=== PATIENT | male | born 1945 | race Caucasian/White ===

== ENCOUNTER 2024-04-16 18:28 | Inpatient (IN) | payer MEDICARE, SELFPAY ==
[2024-04-16] VITALS (17 sets, daily range): BP systolic 90–189; BP diastolic 60–112
[2024-04-16 13:47] LABS: % Basophils 0.5 % (0-2); % Eosinophils 1.9 % (0-6); % Immature Granulocytes 0.4 % (0-0.5); % Lymphocytes 10.4 % (20.5-51.1); % Monocytes 6.9 % (1.7-9.3); % Neutrophils 79.9 % (42.2-75.2); Absolute Basophils 0.1 10^3/uL (0-0.2); Absolute Eosinophils 0.2 10^3/uL (0-0.7); Absolute Lymphocytes 1.1 10^3/uL (1.2-3.4); Absolute Monocytes 0.7 10^3/uL (0.1-0.6); Absolute Neutrophils 8.5 10^3/uL (1.4-6.5); Hematocrit 50.4 % (39.0-52.0); Hemoglobin 17.6 g/dL (13.0-18.0); Mean Corp Hgb Conc. 34.9 g/dL (33.0-37.0); Mean Corpuscular Hgb 33.1 pg (27.0-31.0); Mean Corpuscular Volume 94.9 fL (80.0-94.0); Mean Platelet Volume 10.8 fL (7.4-10.4); Nucleated Red Blood Cells % 0 % (-); Platelet Count 192 10^3/uL (130-400); Red Blood Cell Count 5.31 10^6/uL (4.70-6.10); Red Cell Dist. Width 13.2 % (11.5-14.5); White Blood Cell Count 10.7 10^3/uL (4.8-10.8)
[2024-04-16 13:57] LABS: ALT (SGPT) 44 U/L (0-50); AST (SGOT) 39 U/L (17-59); Albumin 4.4 g/dl (3.5-5.0); Alkaline Phosphatase 132 U/L (38-126); Blood Urea Nitrogen 23 mg/dl (9-20); Calcium 10.7 mg/dl (8.4-10.2); Carbon Dioxide 30 mmol/L (22-30); Chloride 103 mmol/L (98-107); Glucose 119 mg/dl (70-99); Potassium 3.9 mmol/L (3.5-5.1); Sodium 140 mmol/L (135-145); Total Bilirubin 0.7 mg/dl (0.2-1.3); Total Protein 7.3 g/dl (6.3-8.2); eGFR 51.13
[2024-04-16 14:10] LABS: Troponin I 0.051 ng/ml
--- NOTE | 2024-04-16 14:20 | ED.GENMED ---
History of Present Illness
General
Chief Complaint: Chest Pain
Source: patient and family (Daughters who have noticed him wheeze.)
Exam Limitations: none
Time Seen by Provider: 04/16/24 14:03
Nursing documentation reviewed up to this point in time: agreed with
History of Present Illness
History of Present Illness:
78-year-old male presents emergency department due to chest pain that radiates from the back and worsens with walking. This began 2 days ago. He has not had pain like this before. He smokes daily.
Past History
Past History
ED Past Medical History: Other (Peptic ulcer disease)
ED Past Surgical History: Bowel resection (Perforated peptic ulcer)
Social History
Tobacco: Smoker
Alcohol: Occasional
Drug: None
Living: with family
Family History
Family History: Negative Diabetes, Hypertension, Early CAD, Asthma or Cancer
Review of Systems
Review of Systems
Allergies reviewed?: Yes
All Other Systems: Not applicable
Constitutional: Reports no symptoms
EENT: Reports no symptoms
Respiratory: Reports no symptoms
Cardiac: Reports chest pain
ABD/GI: Reports no symptoms
: Reports no symptoms
Musculoskeletal: Reports no symptoms
Skin: Reports no symptoms
Neurological: Reports no symptoms
Endocrine: Reports no symptoms
Hematologic/Lymphatic: Reports no symptoms
Psychiatric: Reports no symptoms
Phy Exam
Physical Exam
Physical Exam:
Physical Exam
General: BP 153/92, afebrile
Neck: supple. no meningeal signs. normal posterior pharynx
Heart: s1/s2 regular rate and rhythm, no murmur. equal radial
pulses.
HEENT: Pupils equal round reactive to light, EOMI
Lungs: no acute respiratory distress. Wheezing in upper lungs bilaterally
Abdomen: normal bowel sounds. not tender. no CVAT
Neuro: alert and oriented. no focal neurological deficits cranial nerves II through XII intact
Skin: no rash
Psychiatric: well kept. interactive and cooperative
Extremities: no edema. no calf tenderness. negative homans. good distal pulses
Scores
Heart Score for Chest Pain Patients
STEMI patient?: No
History: Highly Suspicious
ECG: Nonspecific Repolarization
Age: >/= 65 years
Risk Factors: >/= 3 Risk Factors or History of CAD
Troponin: >1 - <3 x Normal Limit
Heart Score for Chest Pain Patients: 8
Heart Score Risk: 72.7 % MACE over next 6 weeks
Course
Orders/Labs/Results
Orders:
Orders
04/16/24 12:29
EKG [Electrocardiogram (*1)] Urgent
Reason for Study: Chest Pain
EKG- Treatment ONCE
04/16/24 13:17
Complete Blood Count/With Diff Urgent
Comprehensive Metabolic Panel Urgent
NT-proBNP Urgent
Comment: ADD ON
Troponin I Urgent
04/16/24 13:39
EKG [Electrocardiogram (*1)] Urgent
Reason for Study: Chest Pain
EKG- Treatment ONCE
04/16/24 14:13
Add On- LAB Urgent
Tests Added?: bnp
04/16/24 14:24
Aspirin Chewable [Low Strength Aspirin] 324 mg PO NOW STA
Nitroglycerin Sublingual [Nitrostat (Sublingual)] 0.4 mg SL [id number] PRN
04/16/24 14:26
CT Chest/abd/pelvis Angio W/wo Urgent
Comment:
Reason For Exam: chest pain radiating to back, elevated bp
04/16/24 15:11
0.9% Sodium Chloride 1000 ml [Nss] 1,000 ml IV BOLUS
04/16/24 16:19
Morphine Sulfate 2 mg .ROUTE .STK-MED ONE
04/16/24 16:20
Electrocardiogram (*1) Urgent
EKG- Treatment ONCE
Nitroglycerin Ointment [Nitro-Bid] 1 inch .ROUTE .STK-MED ONE
04/16/24 16:21
Morphine Sulfate 2 mg IV NOW STA
04/16/24 16:22
Nitroglycerin Ointment [Nitro-Bid] 1 inch TOPICAL NOW STA
04/16/24 17:03
CARDIOLOGY CONSULT Urgent
Consulting Provider: Anthony Blanchard
Was physician already notified: Yes
Reason for consult: nstemi
04/16/24 17:25
Heparin 4,000 units IV NOW STA
04/16/24 17:[address] Non Medication Order As Directed
Physician Order: PTT 6 hours after initial start of Heparin infusion
04/16/24 17:28
PTT Urgent
Comment: Obtain baseline before beginning heparin infusion if not already collected
Troponin I Q6H
04/16/24 17:30
Heparin 81466 Units/250 ml 25,000 units in 250 ml IV PER PROTOCOL
Weight to be used for heparin protocol in kilograms (kg):: 82.2
Protocol:: Cardiac Tx/Acute Coronary
PTT Goal Range to be used:: PTT 73 to 111 seconds
Order type:: Initial
INITIAL Infusion Dose (UNITS/KG/hr) & then follow protocol:: 12 units/kg/hr
Infusion Dose in UNITS/hr & then follow protocol (UNITS/hr):: 1,000
INFUSION RATE in mL/hr & then follow protocol (mL/hr):: 10
PTT less than or equal to 64 seconds:: Increase rate by 200 units/hr (+ 2 mL/hr)
PTT 64.1 to 72.9 seconds:: Increase rate by 100 units/hr (+ 1 mL/hr)
PTT 73 to 111 seconds:: Target Range. No change in rate.
PTT 111.1 to 130.9 seconds:: Decrease rate by 100 units/hr (- 1 mL/hr)
PTT 131 to 199.9 seconds:: HOLD for 1 hr. Then decrease rate by 200 units/hr (- 2 mL/hr)
PTT greater than or equal to 200 seconds:: HOLD for 2 hrs & Notify Provider. Then decrease by 200 units/hr (-
2 mL/hr)
Lab follow-up:: Each change, PTT q6h until 2 consecutive are therapeutic. Then PTT
daily.
04/16/24 17:31
Echo 2D MMode Color/Doppler Routine
Reason for Study: sob, cp
04/16/24 17:44
EKG with chest pain [ECG as needed] As Directed
ECG as needed for:: Chest Pain
04/16/24 17:52
Admit/Transfer Patient As Directed
Co-Sign Provider:
Level of Care: Inpatient admission
Assign to:: IVU
Physician / Group: Mani Fiore
Diagnosis: NSTEMI
Reason for Hospitalization: NSTEMI
Expected length of stay greater than two midnights?: Yes
ELOS- Estimated Length of Stay in days: 3
I certify the patient meets the requirements for IP care: Yes
04/16/24 17:53
PRN Pain Medication Management As Directed
May give lesser potent ordered pain med per pt: Yes
preference::
Protocol:: Medication orders for pain may be administered in a
manner that supports deferring to patient preference
when the pt is:
- Requesting an ordered lesser potent pain medication.
Least to most potent pain medications are defined
as: acetaminophen < NSAID < tramadol < opioids
(morphine, oxycodone, hydromorphone).
- Requesting a lesser dose of the same medication IF
ORDERED.
- Requesting a less intrusive route of administration
if both routes are prescribed by the provider (PO <
IV).
04/16/24 17:54
Code Status As Directed
Resuscitation Status: Full Code
04/16/24 23:00
Troponin I Q6H
04/16/24 23:30
PTT Routine
04/17/24 05:00
Troponin I Q6H
04/17/24 06:00
Electrocardiogram (*1) IN AM
Reason for Study: Chest Pain
Cardiovascular Evaluation IN AM
Hemoglobin A1c [Glycohemoglobin (HgbA1c)] IN AM
04/17/24 08:00
Aspirin Low Dose EC [Aspir Low (Enteric Coated)] 81 mg PO DAILY
Abnormal Lab Results
04/16/24
13:17
MCV 94.9 H fL
(80.0-94.0)
MCH 33.1 H pg
(27.0-31.0)
MPV 10.8 H fL
(7.4-10.4)
Absolute Neuts (auto) 8.5 H 10^3/uL
(1.4-6.5)
Absolute Lymphs (auto) 1.1 L 10^3/uL
(1.2-3.4)
Absolute Monos (auto) 0.7 H 10^3/uL
(0.1-0.6)
Neutrophils % 79.9 H %
(42.2-75.2)
Lymphocytes % 10.4 L %
(20.5-51.1)
BUN 23 H mg/dl
(9-20)
Creatinine 1.4 H mg/dL
(0.7-1.3)
Glucose 119 H mg/dl
(70-99)
Calcium 10.7 H mg/dl
(8.4-10.2)
Alkaline Phosphatase 132 H U/L
(38-126)
Troponin I 0.051 H* ng/ml
04/16/24 13:17
04/16/24 13:17
Vital Signs
Initial and Last Documented VS:
Initial Vital Signs
Temp Pulse Resp BP Pulse Ox
98.2 F 83 18 189/112 97
04/16/24 12:34 04/16/24 12:34 04/16/24 12:34 04/16/24 12:34 04/16/24 12:34
Last Documented Vital Signs
Temp Pulse Resp BP Pulse Ox
98.2 F 89 19 108/71 93
04/16/24 12:34 04/16/24 14:51 04/16/24 14:51 04/16/24 14:51 04/16/24 14:45
MDM/Problems Addressed
Differential Diagnosis Includes:
Aortic dissection PE, ACS
MDM/Problems Addressed:
69-year-old male with NSTEMI. No signs of PE or aortic dissection. Pain-free at this time. Patient seen by Dr. Blanchard, who recommends heparin and admission to hospitalist service. Discussed with Dr. Ernst, who will likely catheterize patient on
Thursday.
*Radiology
Radiology exam reviewed: radiology read reviewed (CT aorta angiography no signs of dissection or PE)
*Pulse Oximetry
Patient hypoxic: no
*EKG
Interpreted by ED Provider?: Yes
EKG Intrepretation Date: 04/16/24
EKG Intrepretation Time: 13:42
Interpretation: abnormal
Comparison EKG: changes noted
Heart Rate: 83
Rate: normal
Rhythm: sinus
[place]: left axis deviation
Interval: normal interval
QRS Pattern: normal QRS
Ischemia: T-wave inversion
*Critical Care Note
Total Time (30-74mins, 75-104mins- exclusive of procedures): 45
comment:
Critical care statement: A total of 45 minutes of critical care time was provided for this patient. This includes management of unstable vital signs, evaluation of the patient at bedside, reviewing the patient's pertinent medical records, discussion
with consultants, review of old EKGs and review of pertinent medical records. This time with separate from time utilized to perform the aforementioned documented procedures
Patient Management
Social determinants of health affecting care: Living situation, Substance abuse (Tobacco) and Poor outpatient follow-up
Discussion with other providers: Hospitalist, Repair Technician (Cardiology) and Radiologist
Escalation/DeEscalation of care consider admission/obs:
Admission indicated
ED Attending Note
-
Portions of this chart may have been created with voice recognition software.� Occasional wrong word or��sound alike� substitutions may have occurred due to the inherent limitations of voice recognition software.
Discharge Plan
Departure
Patient Disposition: Admit
Date of Disposition: 04/16/24
Time of Disposition: 17:17
Admit to: IVU
Presentation/result/management discussed w/ accepting MD/DO: Hospitalist
Patient with high blood pressure during this ER visit?: Yes
Condition: Fair
Discharge Problem:
Non-ST elevation CO (NSTEMI)
Prescriptions:
No Action
Romel Multivitamin For Men 1 EACH tablet
1 ea PO DAILY
ibuprofen [Advil] 200 mg Tablet
400 mg PO Q6H PRN (Reason: pain)
Referrals:
NONE,* [Family Provider] -
Interventions
Interventions:
*Risk Screen - Suicide Last Done: 04/16/24 12:34
*General Assessment Last Done: 04/16/24 12:34
*Neglect/Abuse Screening Last Done: 04/16/24 12:34
ED- Fall Risk Assessment Last Done: 04/16/24 14:09
ED- Cardiac Assessment Last Done: 04/16/24 14:09
Discharge Date and Time
Print Language: MACEDONIAN
[2024-04-16] MEDS: LOW STRENGTH ASPIRIN 324 MG PO (14:32)
[2024-04-16] MEDS: NITROSTAT (SUBLINGUAL) 0.4 MG SL ×2 (14:32→14:45)
[2024-04-16 14:48] LABS: NT-proBNP 687 pg/ml
[2024-04-16] MEDS: NSS 1000 IV (15:27)
[2024-04-16] MEDS: MORPHINE SULFATE 2 MG IV (16:22)
[2024-04-16] MEDS: NITRO-BID 1 INCH TOPICAL (16:23)
--- NOTE | 2024-04-16 16:59 | CON.CAR ---
Consultation
Consultation Request
Date/Time Consultation Requested: 04/16/2024
Date/Time Consultation Performed: 04/16/2024
Requesting Provider: Carmelo
Performing Provider: Santo
Reason for Consultation: CP, NSTEMI
Medical History
-
Chief Complaint: CP
History of Present Illness:
Patient is a 78-year-old male without a significant reported past medical history aside from tobacco use disorder, suspected hypertension, PVCs, COPD who presents due to chest pain. Patient reports the chest pain as an aching/screw like sensation
in the center of his chest with radiation to his back worse with exertion relieved with rest. Patient also notes occasionally the pain radiates from the back to the center of his chest; similarly worse with exertion, relieved with rest. He notes
that this has been progressive over the past few months however today notes the pain occurring at rest. Due to this, he presented to the emergency department for evaluation. Initial EKG shows right bundle branch block, LAFB, anterior T wave
inversions not present on EKG in 2020. Patient chest pain resolved with nitroglycerin. Patient underwent CT chest with contrast due to concern for possible dissection. Patient had recurrence of chest pain, resolved with nitroglycerin and
morphine. Initially, patient had been hypertensive however under evaluation emergency department, systolics between 100-120 mmHg. Initial lab work demonstrates BUN 23, creatinine 1.4 initial BNP 687 and troponin of 0.051. Patient given an aspirin
in emergency department. In evaluation of patient at bedside, patient denies any current chest pain, shortness of breath, palpitations, lightheadedness, dizziness, near-syncope, syncope, or weakness. Patient has nitro patch in place and denies any
complaints at this time.
Past Medical History
Past Medical History: Other (Tobacco use, hypertension, PVC, right bundle branch block)
Social History
Tobacco: Smoker
Alcohol: Occasional
Drug: None
Personal:
Living: With Family
Family History
Family History: Other (VTE)
Allergies / Home Medications
Allergy/AdvReac Type Severity Reaction Status Date / Time
influenza virus vaccine, Allergy Vomiting Verified 04/16/24 12:34
specific 1966
[Influenza Virus
Vacc,Specific]
meperidine HCl [From Demerol] Allergy agitation Verified 04/16/24 12:34
morphine AdvReac hallucinating Verified 04/16/24 12:34
and
agitation
�Medication �Instructions �Recorded �Confirmed �Type
gsmrgluz-zot-cnpji 200 mcg-lycop 1 ea PO DAILY 07/29/12 09/02/12 History
175 mcg-lutei 250 mcg-herb 178
tablet (Romel Multivitamin For Men)
Tylenol : 2 tablets PO PRN PRN discomfort 08/01/12 09/02/12 History
Advil 2 tab PO DAILY 08/31/12 09/02/12 History
Review of Systems
-
History Source: Patient
All other systems: Negative unless noted
Constitutional: No Symptoms
EENT: No Symptoms
Respiratory: Trouble Breathing
Cardiac: Chest Pain and Diaphoresis
Abdomen/GI: No Symptoms
: No Symptoms
Musculoskeletal: No Symptoms
Skin: No Symptoms
Neurological: No Symptoms
Endocrine: No Symptoms
Hematologic/Lymphatic: No Symptoms
Physical Exam
Vital Signs
Temp Pulse Resp BP Pulse Ox
98.2 F 89 19 108/71 93
04/16/24 12:34 04/16/24 14:51 04/16/24 14:51 04/16/24 14:51 04/16/24 14:45
Lab Results
04/16/24 13:17
04/16/24 13:17
Troponin I 0.051 ng/ml H* 04/16/24 13:17
Uux-N-Sgquzosgdzi Pept 687 pg/ml 04/16/24 13:17
Physical Exam:
GENERAL: no acute distress
EYE: sclera anicteric
NECK: Supple, no JVD appreciated, no carotid bruit appreciated
ENT: normal nose, moist mucosal membranes
CARDIAC: Regular rate and rhythm, +S1/S2, no murmur, rubs, or gallops
CHEST/PULMONARY: Normal effort, global decreased breath sounds, faint expiratory wheeze
ABDOMEN: Soft, without focal tenderness or distention
NEUROLOGICAL: Alert and oriented x3
SKIN: Warm and dry, no rash
PSYCH: Normal and appropriate interaction.
Impression / Plan
-
Cardiology: Previously seen by Dr. Mata Santoro, 2020
Primary care: None
.
Assessment:
Chest pain, concerning for ACS/NSTEMI
� Noted symptoms of aching/screwing sensation in center of chest radiation to back
� Initial troponin 0.051
� EKG sinus rhythm right bundle branch block, LAFB, anterolateral T wave inversions; repeat shows improvement/resolution of these T wave inversions
� Given aspirin in emergency department; improved with nitro patch and morphine
� Chest pain-free in the ED with nitro patch and morphine
� No prior cardiac evaluation or testing; recommended echocardiogram, exercise nuclear stress test 2020 but did not complete
Tobacco use disorder, continuous
� Noted longstanding smoking history since age 11 or 12, currently 5 to 6 cigarettes/day
Hypertension
COPD
Right bundle branch block, LAFB
.
CT chest abdomen pelvis angio with and without contrast 04/16/2024: Severe calcific atherosclerotic plaque in the coronary arteries, moderate calcific atherosclerotic plaque and tortuosity of the descending thoracic aorta, mild interstitial pulmonary
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
moderate bilateral medullary nephrocalcinosis with small subcentimeter nonobstructing bilateral intrarenal calculi, cholelithiasis mild GB wall thickening, small hiatal hernia, severe discogenic degenerative disease L5/S1, severe bilateral facet
joint arthrosis at L4-L5 with associated grade 1 anterolisthesis
.
Plan:
Echocardiogram
Heparin drip
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
Continue aspirin 81 mg daily
CVE/lipid panel/A1c in AM; likely initiation of high intensity statin
Trend troponin to peak
Discussed at length with patient regarding importance of smoking cessation, patient family verbalized understanding
Monitor on telemetry
Further recommendations to follow
Discussed with Dr. Rhodes, nursing
Data Reviewed
-
EKG: Tracing Personally Visualized and interpreted
Radiology: Report Reviewed by me
CT Scan: Report Reviewed by me
Labs: Labs Reviewed by me
Old Records: Reviewed
--- NOTE | 2024-04-16 17:29 | HPS.HSE ---
Family Physician
-
Family Physician: * NONE
Chief Complaint
-
Chest pain
History of Present Illness
Patient is a 78-year-old male with past medical history significant for peptic ulcer disease with perforated ulcer who presented to [facility] ED for evaluation of chest pain. Patient reports chest pain started yesterday afternoon and has
been intermittent ever since, it is located in center of chest. He reports radiated to his back at times. Patient denies anything in particular making pain better or worse. He does report if happens with exertion tends to improve at rest. Patient
has noticed the pain yesterday at rest when on phone with his grandson. Patient denies any recent sick contact, fever, chills, dizziness, cough, shortness of breath, nausea, vomiting, constipation, diarrhea or urinary symptoms.
Medical History
Past Medical History
Past Medical History: Reports Other
Additional Past Medical History:
peptic ulcer disease with perforated ulcer
Past Surgical History: Reports Other
Additional Past Surgical History:
perforated ulcer repair
TURP
Social History
Tobacco: Smoker (6 cigarettes a day since age 11, 17 pack year history )
Alcohol: None
Drug: None
Living: Alone
Employment: Retired
Family History
Family History: Not pertinent
Allergies / Home Medications
Allergies reflects when Allergies were last updated in [facility].
Home Medications with original date entered in [facility]
Allergy/Medication List:
Allergies
Allergy/AdvReac Type Severity Reaction Status Date / Time
influenza virus vaccine, Allergy Vomiting Verified 04/16/24 12:34
specific 1966
[Influenza Virus
Vacc,Specific]
meperidine HCl [From Demerol] Allergy agitation Verified 04/16/24 12:34
morphine AdvReac hallucinating Verified 04/16/24 12:34
and
agitation
Home Medications
umkewlzs-zxu-rqpwd 200 mcg-lycop 175 mcg-lutei 250 mcg-herb 178 tablet (Romel Multivitamin For Men) 1 ea PO DAILY 07/29/12
ibuprofen 200 mg tablet (Advil) 400 mg PO Q6H PRN pain 04/16/24
Review of Systems
-
History Source: Patient and Family
Constitutional: Reports No Symptoms
EENT: Reports No Symptoms
Respiratory: Reports No Symptoms
Cardiac: Reports Chest Pain
Abdomen/GI: Reports No Symptoms
: Reports No Symptoms
Musculoskeletal: Reports No Symptoms
Skin: Reports No Symptoms
Neurological: Reports No Symptoms
Endocrine: Reports No Symptoms
Hematologic/Lymphatic: Reports No Symptoms
Psych: Reports No Symptoms
Physical Exam
Vital Signs
Vital Signs
Temp Pulse Resp BP Pulse Ox
98.2 F 89 19 108/71 93
04/16/24 12:34 04/16/24 14:51 04/16/24 14:51 04/16/24 14:51 04/16/24 14:45
Physical Exam
General: Well Developed, Well Nourished, No Apparent Distress, Comfortable and Conversant
HEENT: NormoCephalic, Moist mucous membranes, Atraumatic, [place] Conjunctivae, Nose Appears Normal and Ears Appear Normal
Respiratory: Clear, Non Labored Respirations and Decreased Breath Sounds
Cardiac: S1/S2 and Regular Rhythm; No Murmur, Rub or Gallop
Breast: Deferred by me
GI: Soft, Non Tender, Non Distended and Normal Bowel Sounds; No Organomegaly
Rectal: Deferred by Provider
Genito-urinary: Deferred by me
Musculoskeletal: No Clubbing, No Cyanosis and No Edema
Skin: Warm and IV/Catheter Site; No Rash
Neuro: Awake, Alert, AO x 3 and Nonfocal/grossly intact
Psych: Calm and Intact Judgment/Insight
Laboratory Results
-
04/16/24 13:17
04/16/24 13:17
Laboratory Results
Total Bilirubin 0.7 mg/dl (0.2-1.3) 04/16/24 13:17
AST 39 U/L (17-59) 04/16/24 13:17
ALT 44 U/L (0-50) 04/16/24 13:17
Alkaline Phosphatase 132 U/L (38-126) H 04/16/24 13:17
Troponin I 0.051 ng/ml H* 04/16/24 13:17
Data Reviewed
-
CT Scan: Report Reviewed by me (Chest/Abd/Pelvis CTA)
Medical Tests (Nuc Med, Echo, EKG etc): Report Reviewed by me (EKG: NORMAL SINUS RHYTHM LEFT AXIS DEVIATION RIGHT BUNDLE BRANCH BLOCK ABNORMAL ECG)
Lab Data: Labs Reviewed by me (Trop 0.051, BUN 23, Creat 1.4, )
Impression/Plan
-
IMPRESSION/PLAN:
#Chest pain/NSTEMI
Chest CTA: 1. Severe calcific atherosclerotic plaque in the coronary arteries.
2. Moderate calcific atherosclerotic plaque and tortuosity in the descending thoracic aorta.
3. 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
Abd/Pelvis CTA: 1. Mild fusiform infrarenal abdominal aortic aneurysm (2.7 cm diameter).
2. 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
3. SEVERELY ENLARGED PROSTATE GLAND protruding into the urinary bladder lumen. Diagnostic possibilities are (1) severe benign prostatic hyperplasia or (2) prostate cancer.
4. Moderate bilateral medullary nephrocalcinosis and many small subcentimeter nonobstructing bilateral intrarenal calculi.
5. Cholelithiasis and mild gallbladder wall thickening.
6. Small hiatal hernia.
7. Severe discogenic degenerative disease at L5/S1.
8. Severe bilateral facet joint arthrosis at L4/L5 with associated grade 1 anterolisthesis.
EKG: NORMAL SINUS RHYTHM
LEFT AXIS DEVIATION
RIGHT BUNDLE BRANCH BLOCK
ABNORMAL ECG
- admit to IVU
- heparin gtt
- trend troponin
- consider transition to nitro gtt if symptoms persist
- Consult Cardiology
#nicotine dependency
17 pack year history, smokes 0.25 pack per day currently
- denies need for nicotine replacement
- encourage cessation
#peptic ulcer disease
s/p repair
Code status: full code
DVT prophylaxis: heparin gtt
[2024-04-16] MEDS: HEPARIN 4000 UNITS IV (17:36)
[2024-04-16] MEDS: HEPARIN 25000 UNITS/250 ML IV (17:37)
[2024-04-16 17:54] LABS: APTT 31.8 Sec (23.4-35.0)
--- NOTE | 2024-04-16 18:16 | W.PN.UPDATE ---
Update Note
Progress Note Update
This is an addendum to the H&P written by Angie Barron on 04/16/2024. Patient seen and examined independently with AUDIT ASSOCIATE.
78-year-old male past medical history of peptic ulcer disease with perforation status post surgery, BPH status post TURP, COPD, smoker, presenting with chest pain with radiation to the back occurring with exertion relieved with rest but now
occurring at rest progressed over the past few months. Pain resolved with nitroglycerin.
Troponin 0.051. Creatinine of 1.4.
EKG shows right bundle branch block which is old, T wave inversions which are new.
CTA chest abdomen and pelvis shows infrarenal abdominal aortic aneurysm 2.7 cm. No evidence of aortic dissection. There is mild interstitial pulmonary fibrosis in the dependent portion of the lower lobes.
Patient with NSTEMI and mild [place].
Aspirin given. Heparin drip started. IV fluids were given. Check A1c and lipid panel. Trend troponins. Check echocardiogram. Cardiology planning on catheterization for Thursday. Outpatient follow-up for interstitial fibrosis and infrarenal
abdominal aortic aneurysm. Hold ibuprofen.
--- NOTE | 2024-04-16 19:26 | EDRN ---
Report received, introduced myself to patient, patient ambulated to the restroom and back in bed resting with family at bedside will take patienet upstairs shortly.
--- NOTE | 2024-04-16 20:25 | PTCARENOTE ---
Vital signs captured from previous shift.
[2024-04-16 23:37] LABS: APTT 119.3 Sec (23.4-35.0)
[2024-04-16 23:58] LABS: Troponin I 0.265 ng/ml
--- NOTE | 2024-04-17 02:55 | PTCARENOTE ---
Pt received as admit from ED. Pt ambulated from stretcher to bed with no complaints of CP. Pt placed on tele reading NSR/SB with BBB, HR 50s-60s. Heparin gtt currently infusing at 1000units/hr. Pt oriented to room and admission assessment
completed as documented. Plan of care discussed with pt and family and all questions regarding care answered. Can make needs known. Call melo within reach.
[2024-04-17 05:02] VITALS: BP 99/63
[2024-04-17 05:03] VITALS: BMI 28.9
[2024-04-17 05:50] LABS: APTT 82.4 Sec (23.4-35.0)
[2024-04-17 05:56] LABS: Hematocrit 45.4 % (39.0-52.0); Hemoglobin 15.5 g/dL (13.0-18.0); Mean Corp Hgb Conc. 34.1 g/dL (33.0-37.0); Mean Corpuscular Hgb 33.3 pg (27.0-31.0); Mean Corpuscular Volume 97.6 fL (80.0-94.0); Mean Platelet Volume 11.6 fL (7.4-10.4); Platelet Count 186 10^3/uL (130-400); Red Blood Cell Count 4.65 10^6/uL (4.70-6.10); Red Cell Dist. Width 13.4 % (11.5-14.5); White Blood Cell Count 10.5 10^3/uL (4.8-10.8)
[2024-04-17 06:02] LABS: Troponin I 0.194 ng/ml
[2024-04-17 06:24] LABS: Blood Urea Nitrogen 22 mg/dl (9-20); Calcium 9.1 mg/dl (8.4-10.2); Carbon Dioxide 24 mmol/L (22-30); Chloride 106 mmol/L (98-107); Estimated Creatinine Clearance 39 ml/min; Glucose 91 mg/dl (70-99); HDL Cholesterol 36 mg/dl; LDL Cholesterol, Calculated 87 mg/dl; Sodium 138 mmol/L (135-145); Total Cholesterol 139 mg/dl (50-199); Triglyceride 82 mg/dl (10-149); Very Low Density Lipoprotein 16 mg/dl (0-30); eGFR 55.88
[2024-04-17 07:34] VITALS: BP 100/69
[2024-04-17] MEDS: THERAGRAN 1 TABLET PO (07:36)
[2024-04-17] MEDS: ASPIR LOW (ENTERIC COATED) 81 MG PO (07:36)
[2024-04-17 09:09] LABS: Glycohemoglobin (HgbA1c) 5.5 % (4.0-5.6)
--- NOTE | 2024-04-17 10:03 | PTCARENOTE ---
Pt received from mine shifter RN. Pt is Ox3 and appropriate, dtr at bedside with many questions, answered to her satisfaction. Currently on heparin gtt at 900. Pt states that he is completely chest pain free. NSr with 1� AVB, BBB, long QT rate of 60.
Currently on RA, sat of 96%, sl ex wheezing in the L lung. Good Appetite, instructed on NPO after MN for cardiac cath tomorrow. Walking to the bathroom without difficulty. Call melo within reach, pt makes needs known.
--- NOTE | 2024-04-17 10:14 | W.PN.CARDCBS ---
Today's Communication / Plan
-
IV heparin, p.o. aspirin
Nitroglycerin as needed if recurrent chest pain; goal chest pain-free
High intensity statin
N.p.o. after midnight for possible left heart catheterization tomorrow
Impression / Plan
-
Cardiology: Previously seen by Dr. Mata Santoro, 2020
Primary care: None
.
Assessment:
Chest pain, concerning for ACS/NSTEMI
� Noted symptoms of aching/screwing sensation in center of chest radiation to back
� Initial troponin 0.051, peak at 0.265, downtrending
� EKG sinus rhythm right bundle branch block, LAFB, anterolateral T wave inversions; repeat shows improvement/resolution of these T wave inversions
� Given aspirin in emergency department; improved with nitro patch and morphine
� Chest pain-free in the ED with nitro patch and morphine
� No prior cardiac evaluation or testing; recommended echocardiogram, exercise nuclear stress test 2020 but did not complete
Tobacco use disorder, continuous
� Noted longstanding smoking history since age 11 or 12, currently 5 to 6 cigarettes/day
Hypertension
COPD
Right bundle branch block, LAFB
Dyslipidemia
Common iliac artery aneurysm, mild
Abdominal aortic aneurysm, mild, 2.7 cm
Nephrocalcinosis
Cholelithiasis
Degenerative disc disease
.
CT chest abdomen pelvis angio with and without contrast 04/16/2024: Severe calcific atherosclerotic plaque in the coronary arteries, moderate calcific atherosclerotic plaque and tortuosity of the descending thoracic aorta, mild interstitial pulmonary
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
moderate bilateral medullary nephrocalcinosis with small subcentimeter nonobstructing bilateral intrarenal calculi, cholelithiasis mild GB wall thickening, small hiatal hernia, severe discogenic degenerative disease L5/S1, severe bilateral facet
joint arthrosis at L4-L5 with associated grade 1 anterolisthesis
.
Plan:
Echocardiogram, pending
Heparin drip, n.p.o. after midnight for left heart catheterization 04/18/2024
Continue Nitropaste/patch if recurrent symptoms, transition to nitro drip; if patient does not remain pain-free, may require urgent evaluation and cardiac Cmm Operator
Continue aspirin 81 mg daily
Start high intensity statin
Discussed at length with patient regarding importance of smoking cessation, patient family verbalized understanding
Monitor on telemetry
Further recommendations to follow
Discussed with family, nursing
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
Subjective
Date of Service: April 17, 2024
Patient seen and examined's morning. No acute events overnight. Patient resting comfortably in bed. Patient denies any chest pain, shortness of breath, palpitations, weakness. Telemetry demonstrates sinus rhythm. Remains on heparin drip.
Objective
Labs:
04/17/24 05:21
04/17/24 05:22
Labs
Hgb 15.5 g/dL (13.0-18.0) 04/17/24 05:21
Hct 45.4 % (39.0-52.0) 04/17/24 05:21
Plt Count 186 10^3/uL (130-400) 04/17/24 05:21
APTT 82.4 Sec (23.4-35.0) H 04/17/24 05:22
Sodium 138 mmol/L (135-145) 04/17/24 05:22
Potassium 4.0 mmol/L (3.5-5.1) 04/17/24 05:22
BUN 22 mg/dl (9-20) H 04/17/24 05:22
Creatinine 1.3 mg/dL (0.7-1.3) 04/17/24 05:22
Glucose 91 mg/dl (70-99) 04/17/24 05:22
Troponins
04/16/24 04/16/24 04/16/24
13:17 17:28 23:10
Troponin I 0.051 H* 0.160 H* D 0.265 H* D
04/17/24
05:21
Troponin I 0.194 H* D
Vital Signs and I&O:
Vital Signs
Temp Pulse Resp BP Pulse Ox
98.3 F 63 20 110/62 96
04/17/24 07:34 04/16/24 23:11 04/17/24 07:34 04/16/24 23:11 04/17/24 07:34
Vital Signs
Temp Pulse Resp BP Pulse Ox
98.3 F 63 20 110/62 96
04/17/24 07:34 04/16/24 23:11 04/17/24 07:34 04/16/24 23:11 04/17/24 07:34
Physical Exam
Physical Exam
GENERAL: no acute distress
EYE: sclera anicteric
NECK: Supple, no JVD appreciated, no carotid bruit appreciated
ENT: normal nose, moist mucosal membranes
CARDIAC: Regular rate and rhythm, +S1/S2, no murmur, rubs, or gallops
CHEST/PULMONARY: Normal effort, global decreased breath sounds, faint expiratory wheeze
ABDOMEN: Soft, without focal tenderness or distention
NEUROLOGICAL: Alert and oriented x3
SKIN: Warm and dry, no rash
PSYCH: Normal and appropriate interaction.
[2024-04-17 11:57] VITALS: BP 116/67
[2024-04-17 12:36] LABS: APTT 67.7 Sec (23.4-35.0)
--- NOTE | 2024-04-17 13:02 | W.PN.HOSP.TC ---
Today's Communication/Plan
-
Check bladder scan
N.p.o. after midnight
Assessment / Plan
Assessment / Plan
Gen-AAOx3, NAD
HEENT-NC, AT, anicteric, clear oral mm
Neck-supple
CV-reg, no M, +S1/S2
Lungs-clear B/L
Abd-soft, NT, ND
Ext-no edema
Musculoskeletal-no cyanosis, clubbing
Skin-warm and dry
Neuro-grossly non-focal
Psych-calm, cooperative
ACS/NSTEMI -cardiology following. Continue IV heparin. Await cardiac catheterization on Thursday. Chest pain-free currently. No prior cardiac workup.
Troponin trended down.
Tobacco dependence
Essential hypertension -stable. Not on meds.
COPD without exacerbation -not on treatment at home.
Hyperlipidemia
Abdominal aortic aneurysm -measuring 2.7 cm in diameter, infrarenal on CT. Outpatient follow-up.
BPH -prostate is minimally enlarged on CT. He had a TURP procedure in the past. Check bladder scan. Denies nocturia.
Asymptomatic cholelithiasis -noted on CT.
Full code
Anticipated Discharge: > 48 hours
Subjective/Interval History
-
Date of Service: April 17, 2024
Patient seen and examined. No complaints currently, denies chest pain.
Objective Data
-
Labs:
Laboratory Results
04/17/24 04/17/24 04/17/24
05:21 05:22 12:03
WBC 10.5
Hgb 15.5
Hct 45.4
Plt Count 186
APTT 82.4 H 67.7 H
Sodium 138
Potassium 4.0
Chloride 106
Carbon Dioxide 24
BUN 22 H
Creatinine 1.3
Glucose 91
Calcium 9.1 D
04/17/24
18:45
WBC
Hgb
Hct
Plt Count
APTT Pending
Sodium
Potassium
Chloride
Carbon Dioxide
BUN
Creatinine
Glucose
Calcium
Vital Signs:
Vital Signs
Temp Pulse Resp BP Pulse Ox
98.3 F 63 20 110/62 96
04/17/24 11:56 04/16/24 23:11 04/17/24 11:56 04/16/24 23:11 04/17/24 12:10
Review of Systems
-
History Source: Patient
All other systems: Reviewed and negative
[2024-04-17 16:05] VITALS: BP 128/77
[2024-04-17] MEDS: LIPITOR 80 MG PO (18:21)
[2024-04-17] MEDS: HEPARIN 25000 UNITS/250 ML IV (18:35)
[2024-04-17 18:59] LABS: APTT 70.3 Sec (23.4-35.0)
[2024-04-17 19:08] VITALS: BP 132/81
[2024-04-17 22:10] VITALS: BP 119/77
[2024-04-18] VITALS (14 sets, daily range): BP systolic 97–150; BP diastolic 65–85
[2024-04-18 02:19] LABS: APTT 112.8 Sec (23.4-35.0)
[2024-04-18 04:07] LABS: Blood Urea Nitrogen 24 mg/dl (9-20); Calcium 9.5 mg/dl (8.4-10.2); Carbon Dioxide 25 mmol/L (22-30); Chloride 102 mmol/L (98-107); Estimated Creatinine Clearance 42 ml/min; Glucose 86 mg/dl (70-99); Potassium 3.8 mmol/L (3.5-5.1); Sodium 137 mmol/L (135-145); eGFR > 60.00
--- NOTE | 2024-04-18 04:59 | PTCARENOTE ---
Received pt at shift change. NSR with BBB on tele, HR 50s-60s. No complaints of CP or SOB. Heparin gtt infusing at 1000units/hr. Plan of care discussed and pt verbalizes understanding. NPO since midnight for cardiac cath. Call melo within reach.
[2024-04-18] MEDS: ASPIR LOW (ENTERIC COATED) 81 MG PO (09:01)
[2024-04-18] MEDS: THERAGRAN 1 TABLET PO (09:01)
[2024-04-18 09:33] LABS: APTT 59.7 Sec (23.4-35.0)
[2024-04-18] MEDS: LOW STRENGTH ASPIRIN 243 MG PO (09:41)
[2024-04-18] MEDS: NORMOSOL-R/PLASMALYTE-A 1000 IV (10:14)
--- NOTE | 2024-04-18 10:55 | W.PN.HOSP.TC ---
Today's Communication/Plan
-
Cath
echo
iv hep
start IVF
Assessment / Plan
Assessment / Plan
Gen-AAOx3, NAD
HEENT-NC, AT, anicteric, clear oral mm
Neck-supple
CV-reg, no M, +S1/S2
Lungs-clear B/L
Abd-soft, NT, ND
Ext-no edema
Musculoskeletal-no cyanosis, clubbing
Skin-warm and dry
Neuro-grossly non-focal
Psych-calm, cooperative
ACS/NSTEMI -cardiology following. Continue IV heparin. Await cardiac catheterization. ECHO pending. Chest pain-free currently. No prior cardiac workup.
Troponin trended down.
CKDstage 3a-start IVF as plan for cath.
Tobacco dependence
Essential hypertension -stable. Not on meds.
COPD without exacerbation -not on treatment at home.
Hyperlipidemia
Abdominal aortic aneurysm -measuring 2.7 cm in diameter, infrarenal on CT. Outpatient follow-up.
BPH -prostate is minimally enlarged on CT. He had a TURP procedure in the past. Check bladder scan. Denies nocturia.
Asymptomatic cholelithiasis -noted on CT.
Full code
d/w with daughter and grandkids at bedside in details.
Anticipated Discharge: > 48 hours
Subjective/Interval History
-
Date of Service: April 18, 2024
denies any chest pain
Objective Data
-
Labs:
Laboratory Results
04/18/24 04/18/24 04/18/24
02:00 08:58 15:45
APTT 112.8 H 59.7 H Pending
Sodium 137
Potassium 3.8
Chloride 102
Carbon Dioxide 25
BUN 24 H
Creatinine 1.2
Glucose 86
Calcium 9.5
Vital Signs:
Vital Signs
Temp Pulse Resp BP Pulse Ox
98 F 62 20 108/71 92
04/18/24 08:00 04/18/24 09:00 04/18/24 08:00 04/18/24 08:00 04/18/24 08:00
Physical Exam
-
General: Well Developed and No Apparent Distress
HEENT: Normocephalic, Atraumatic and Moist Mucous Membranes
Respiratory: Clear to Auscultation
Cardiac: Regular Rhythm and S1/S2; Negative Murmur, Rub or Gallop
GI: Soft, Nontender, Nondistended and Normal Bowel Sounds; Negative Organomegaly
Rectal: Deferred by Provider
Musculoskeletal: No Clubbing, No Cyanosis and No Edema
Skin: Negative Rash
Neuro: Awake, Alert, Oriented, AO x 3 and Nonfocal/Grossly Intact
Psych: Calm
Data Reviewed
-
Total Time Spent with Patient (in minutes): 55
--- NOTE | 2024-04-18 13:45 | PTCARENOTE ---
Rec'd Pt post card cath, A,A+OX3, denies pain, VSS. R radial dsg D+I , small hematoma noted proximal to R band, manual pressure held by woodworking shop laborer RN x 5-10 minutes, site then soft, R band intact.
--- NOTE | 2024-04-18 14:13 | PTCARENOTE ---
Addendum entered by Chrisetn Dey RN 04/18/24 14:55:
Small hematoma noted proximal to R band, manual pressure (5-10 minutes) held by lab scientist RN, hematoma pressed out, site now soft. 15 min later see below
[ End ]
Original Note:
hematoma felt prox to band now at outer wrist area 1x4 cm, manual pressure held for 10 min, site now soft. Yessi Gonzales aware and saw Pt.
--- NOTE | 2024-04-18 14:30 | CONSULT.CT ---
Consultation
-
Date/Time Consultation Requested: 04/18/24 1400
Date/Time Consultation Performed: 04/18 1431
Requesting Provider: MD Nilda
Performing Provider: Pati Smalls MD
Reason for Consultation: CABG eval
Patient History
Physicians
Family Physician: None
Outpatient Dental Tech: Dr. Mata Santoro
Inpatient Dental Tech: Dr. Munguia
History of Present Illness
78-year-old male with past medical history of hypertension, tobacco use, right bundle branch block, COPD presents on 04/16 with complaints of chest pain. He reported the pain was aching/screw like sensation in the center of his chest radiating to
his back. The chest pain was usually relieved with rest however has been more progressive over the past few months however recently the pain started to occur at rest. Due to this change patient presented to the emergency department for evaluation.
Upon arrival patient's EKG showed new anterior T wave inversions and a left anterior fascicular block. He was given a sublingual nitroglycerin which resolved his chest pain and a CT of the chest with contrast ruled out a dissection. Patient was
found to have elevated troponins and he was given aspirin in the emergency department and started on a heparin infusion, along with a nitro patch.
Today patient was taken to the cardiac Academic Advising Director and patient was noted to have multivessel coronary artery disease on cath. Therefore CT surgery was consulted for surgical evaluation.
TTE on 04/18 showed a normal ejection fraction of 55-60% and mild mitral regurgitation and trivial aortic insufficiency. No other valvular disease was noted.
Past Medical History
Past Medical History: CAD, COPD, HTN and Hypercholesterolemia
Gastric ulcer
Past Surgical History
Past Surgical History: Urological (Turp)
Allergies
Allergy/AdvReac Type Severity Reaction Status Date / Time
influenza virus vaccine, Allergy Vomiting Verified 04/16/24 12:34
specific 1966
[Influenza Virus
Vacc,Specific]
meperidine HCl [From Demerol] Allergy agitation Verified 04/16/24 12:34
morphine AdvReac hallucinating Verified 04/16/24 12:34
and
agitation
Home Medications
�Medication �Instructions �Recorded �Confirmed �Type
ghpevutp-aig-xwabd 200 mcg-lycop 1 ea PO DAILY Supplement 07/29/12 04/16/24 History
175 mcg-lutei 250 mcg-herb 178
tablet (Romel Multivitamin For Men)
ibuprofen 200 mg tablet (Advil) 400 mg PO Q6H PRN pain 04/16/24 04/16/24 History
Physical Exam
Vital Signs
Temp 98.4 F 04/18/24 11:09
Temp route: Oral 04/18/24 11:09
Pulse 64 04/18/24 13:45
Rhythm: Normal sinus rhythm 04/17/24 20:00
With- Bundle Branch Block Confi, Sinus bradycardia 04/17/24 20:00
Resp Rate 18 04/18/24 11:09
Blood pressure 133/75 04/18/24 13:45
Blood pressure extremity used: Right upper arm 04/18/24 11:09
Position: Lying 04/18/24 11:09
MAP (cuff-Ward Monitor) 92 04/18/24 13:45
SaO2 92 04/18/24 13:45
Nasal Cannula flow liters per minute 96 04/17/24 10:02
Oxygen Mode of Delivery Room air 04/18/24 11:09
Can the patient verbally communicate their pain? Yes 04/17/24 20:00
Pain scale ratin 04/16/24 14:54
Actual Weight 76.2 kg 04/17/24 05:03
Body Mass Index (BMI) 28.9 04/17/24 05:03
Labs
04/17/24 05:21
04/18/24 02:00
APTT 59.7 Sec (23.4-35.0) H 04/18/24 08:58
Hemoglobin A1c 5.5 % (4.0-5.6) 04/17/24 05:21
Troponin I 0.194 ng/ml H* D 04/17/24 05:21
Pdl-W-Unxvhfygimc Pept 687 pg/ml 04/16/24 13:17
Assessment / Plan
-
78 y/o male with PMHx listed above presents to with complaints of chest discomfort. He was R/I for NSTEMI and was taken to the cardiac Academic Advising Director today where multivessel disease was found.
#CAD
-Patient's case will be discussed with attending physician. Tentative surgical date will be tomorrow April [address] Hi
-Routine preoperative cardiothoracic surgery orders will be initiated.
-STS risk stratification score will be calculated after preoperative testing is complete
-Continue nitroglycerin and heparin gtt per cardiology
--- NOTE | 2024-04-18 14:41 | ITS.CL.CATH ---
Manager Of Radiology - Catheterization
Cardiac Catheterization
Procedure Report:
LEFT HEART CATHETERIZATION
Date of Procedure: April 18, 2024
Referring: Dr. Anthony Blanchard
PROCEDURES:
1. Left heart catheterization with coronary and single-plane left ventriculography
INDICATION: Non-ST segment elevation NE function
ACCESS: Right radial artery, 6 Malagasy sheath
HEMODYNAMICS : (mmHg)
AO (s/d) : 130/72
LV (s/d) : 130/12
LVEDP : 22
CORONARY FINDINGS
DOMINANCE: Right
LEFT MAIN: Normal
LEFT ANTERIOR DESCENDING: The LAD arises from the left main as a large-caliber vessel with a 50% ostial stenosis. No pressure dampening. There is diffuse atherosclerosis from the proximal to mid LAD with a 95% stenosis just proximal to the origin
of the only sizable diagonal branch and diffuse 70% stenosis extending beyond the diagonal branch into the mid LAD. The mid to distal LAD beyond a large septal show girl has only minor irregularities. The diagonal branch is a small caliber vessel
with moderate diffuse disease in its midportion and bifurcates distally.
CIRCUMFLEX: The circumflex is a medium caliber nondominant vessel. OM1 is a small to medium caliber vessel with a 60% ostial stenosis. OM 2 is small. The circumflex terminates in a moderate size OM 3 which has a 50% mid stenosis
RIGHT CORONARY ARTERY: The right coronary artery is a dominant vessel with diffuse atherosclerotic disease over its course. The proximal RCA has a 60% stenosis and is followed by a 95% stenosis just beyond the RV marginal branch. The distal right
coronary artery is subtotally occluded and fills via well-developed right to right collaterals from a RV marginal branch.
VENTRICULOGRAPHY: Left ventriculography is performed in an BRUSH projection. The digital single-plane left ventricular ejection fraction is estimated at 55-60% and no regional wall motion abnormalities are noted
RADIATION SUMMARY: Fluoro Time (min): 3.0, Dose (mGy): 369, DAP (Gy.cm2) : 25.6
Closure Device: TR band
CONCLUSIONS
1. Multivessel coronary artery disease with 50% ostial and extensive atherosclerotic disease involving the mid LAD and diagonal branch. Chronic subtotal occlusion of the mid RCA with a distal RCA filling via right to right collaterals from an RV
marginal branch. Moderate coronary disease at the origin of small to medium caliber OM1 and in the midportion of OM 3
2. Preserved left ventricular systolic function
RECOMMENDATIONS
1. Consult CT surgery
Copy to: Dr. Anthony Blanchard
--- NOTE | 2024-04-18 15:32 | CM ---
Addendum entered by Rocio Monk RN 04/18/24 16:48:
Patient does not qualify for Medical Assistance for secondary coverage. I gave the patient a handout for [employer] Prescription Plan coverage.
Original Note:
Chart reviewed. Patient is independent of ADLS, lives alone in a apartment 3rd floor, 3 full flight of stairs to enter, 0 DME. Patient is waiting on CT Surgery evaluation. If patient needs surgery he will go to his daughters. Plan is for the
patient to return home vs daughters house. Patient's daughter wanting information on a secondary insurance with medical assistance, patient only has medicare A and B. Phone call placed to admissions for a referral to [facility]. CHARLEE to follow
--- NOTE | 2024-04-18 16:28 | PTCARENOTE ---
R radial dsg D+I, no further issues with hematoma, radial site and forearm remain soft
[2024-04-18] MEDS: LIPITOR 80 MG PO (18:05)
[2024-04-18] MEDS: HEPARIN 25000 UNITS/250 ML IV (18:41)
[2024-04-18 18:47] LABS: B.E. 2.2 mmol/L; HCO3 25.5 mmol/L (21-28); O2 Saturation % 97.4 % (94-98); PCO2 35 mmHg (35-48); PO2 79 mmHg (83-108); pH 7.47 (7.35-7.45)
[2024-04-18] MEDS: LIDOCAINE URO-JET 2% 1 SYRINGE TOPICAL (19:07)
--- NOTE | 2024-04-18 20:05 | W.PN.UPDATE ---
Update Note
Progress Note Update
Procedure Type:�Isolated CABG
Perioperative Outcome Estimate %
Operative Mortality 2.55%
Morbidity & Mortality 9.65%
Stroke 1.06%
Renal Failure 1.62%
Reoperation 2.5%
Prolonged Ventilation 6.05%
Deep Sternal Wound Infection 0.184%
Long Hospital Stay (>14 days) 5.1%
Short Hospital Stay (<6 days)* 40.7%
Clinical Summary
Planned Surgery: Isolated CABG, Urgent, First cardiovascular surgery
Demographics: 78 year old, male, 76.2kg, 163cm, BMI: 28.7 kg/m�
Lab Values: Creatinine: 1.3 mg/dL, Hematocrit: 45.4%, WBC Count: 10.5 10�/�L, Platelet Count: 813065 cells/�L
Substance Abuse: Current smoker, Alcohol use: <=1 drink/week
Risk Factors / Comorbidities: Family Hx of CAD
Pulmonary RF: Mild CLD
Coronary Artery Disease: 3 vessels diseased, Non-ST Elevation [place], [place]: 1 to 7 Days
Valve Disease: Mild MR
--- NOTE | 2024-04-18 22:49 | W.PN.UPDATE ---
Update Note
Progress Note Update
-Called by nurse to assess above pt with hematuria post garcia insertion
-Pt had garcia inserted during 7pm shift change per Nurse
-Nurse reports garcia was draining bright red blood through garcia initially post insertion, but noted to be urinating around garcia subsequently
-Garcia was sterilely irrigated by me with significant clots noted through garcia post irrigation
-Les hematuria now pinkish and appears to be clearing
-Pt had left heart cath in the afternoon of 04/18 and noted to be on heparin gtt, will check PTT level now to see if supratherapeutic
-Pt tells me he had a TURP done in this hospital by Dr. Forbes in 2012
-Hematuria likely secondary to traumatic garcia insertion
-Will cont. to closely monitor, will consult Urology if gross hematuria persists
[2024-04-18] MEDS: KCL 20 MEQ PO (23:29)
[2024-04-18] MEDS: MELATONIN 5 MG PO (23:29)
[2024-04-18 23:40] LABS: INR 1.08; PT 14.3 Sec (11.4-14.6)
[2024-04-18 23:42] LABS: APTT 98.8 Sec (23.4-35.0)
[2024-04-19] VITALS (16 sets, daily range): BP systolic 84–155; BP diastolic 61–123; BMI 28.0
--- NOTE | 2024-04-19 01:26 | PTCARENOTE ---
Assumed care of the pt @ 1900. Pt AAOx3 SR on the monitor VSS Hep gtt infusing. Plan of care explained to patient and family. Call melo within reach
--- NOTE | 2024-04-19 01:30 | PTCARENOTE ---
Chaudhari was placed 1900 bloody urine draining. Korey Krueger GUITAR PLAYER notified.
--- NOTE | 2024-04-19 01:32 | PTCARENOTE ---
Pt with hematuria and leaking around the garcia. John Vo notified @ 2130 and at bedside to flush catheter for clots. Garcia continues to drain blood tinged urine. Stat PTT 98.8. Will monitor closely.
[2024-04-19 05:34] LABS: Hematocrit 46.1 % (39.0-52.0); Hemoglobin 16.3 g/dL (13.0-18.0); Mean Corp Hgb Conc. 35.4 g/dL (33.0-37.0); Mean Corpuscular Hgb 33.5 pg (27.0-31.0); Mean Corpuscular Volume 94.7 fL (80.0-94.0); Mean Platelet Volume 11.4 fL (7.4-10.4); Platelet Count 179 10^3/uL (130-400); Red Blood Cell Count 4.87 10^6/uL (4.70-6.10); White Blood Cell Count 11.4 10^3/uL (4.8-10.8)
[2024-04-19 05:40] LABS: INR 1.14; PT 14.9 Sec (11.4-14.6)
[2024-04-19 05:42] LABS: APTT 105.7 Sec (23.4-35.0)
[2024-04-19 06:21] LABS: Potassium 3.8 mmol/L (3.5-5.1)
[2024-04-19 06:24] LABS: ALT (SGPT) 45 U/L (0-50); AST (SGOT) 60 U/L (17-59); Albumin 4.2 g/dl (3.5-5.0); Alkaline Phosphatase 123 U/L (38-126); Blood Urea Nitrogen 18 mg/dl (9-20); Calcium 9.3 mg/dl (8.4-10.2); Carbon Dioxide 22 mmol/L (22-30); Chloride 107 mmol/L (98-107); Direct Bilirubin 0.3 mg/dl (0.0-0.4); Estimated Creatinine Clearance 46 ml/min; Glucose 115 mg/dl (70-99); Magnesium 2.2 mg/dl (1.6-2.3); Sodium 140 mmol/L (135-145); eGFR > 60.00
--- NOTE | 2024-04-19 06:36 | PTCARENOTE ---
Addendum entered by Pretty Sanchez RN 04/19/24 06:54:
Pt to CVICU ~0430.
Original Note:
Pt transferred to CVICU for surgery w/ Dr. Hi later today. Pt admitted to room 2260 from IVU. Pt AAOx3. Stand by assist to CVICU bed. SR on the tele monitor. HR 60s. BP stable. Afebrile. Pt 95% on RA. Lung sounds clear. Abdomen round. +BS. Chaudhari
catheter in place and draining bloody urine. CTPA aware of hematuria. Right wrist cath site intact and slightly ecchymotic. Pt oriented to room. Pt clipped and given 2nd CHG bath. Gown and linens changed. Weight and VS obtained. Pt confirmed NPO
status. Heparin drip infusing. Labs drawn and sent. Call melo within reach.
[2024-04-19] MEDS: ASPIR LOW (ENTERIC COATED) PO (07:34)
[2024-04-19] MEDS: THERAGRAN PO (07:35)
--- NOTE | 2024-04-19 09:04 | CM ---
Preoperative and postoperative instructions and restrictions discussed with patient, son, granddaughter and grandson. Patient is independent of ADLS, lives alone in a apartment, 3rd floor, 3 full flight of stairs. Patient is going to his daughters
house who has a [address] [facility] [facility] [address]. Stephani [phone]. Patient is agreeable to a visit by CT Transitional RN. Plan is for the patient to go to his daughters house with CT Transitional RN.
[2024-04-19] MEDS: VERSED 2 MG IV (09:57)
[2024-04-19] MEDS: XYLOCAINE 2% MDV 10 ML INFIL (09:57)
[2024-04-19] MEDS: BACTROBAN 2% OINTMENT 1 APPLIC NASAL ×2 (10:28→20:18)
--- NOTE | 2024-04-19 10:28 | W.PN.UPDATE ---
Update Note
Progress Note Update
Radial arterial line placement
A time-out was completed verifying correct patient, procedure, site, patient positioning, and special equipment. Patient was monitored with continuous bedside EKG, blood pressure, pulse ox readings.
Ray's test was performed to ensure adequate perfusion. The patient's left wrist was prepped and draped in sterile fashion.
2% Lidocaine was used to anesthetize the area. Ultrasound was used in real time to localize the radial artery and guide introducer needle into the arterial lumen. The catheter was threaded over the guide wire and the needle was removed with
appropriate pulsatile blood return. The catheter was then secured in place to the skin and a biopatch and sterile dressing applied.
Perfusion to the extremity distal to the point of catheter insertion was checked and found to be unchanged.
Estimated Blood Loss: 0 mL
The patient tolerated the procedure well and there were no complications.
Remains in critical condition.
--- NOTE | 2024-04-19 10:28 | W.PN.UPDATE ---
Update Note
Progress Note Update
A time-out was completed verifying correct patient, procedure, site, patient positioning, and special equipment. Patient was monitored with continuous bedside EKG, blood pressure, pulse ox readings.
The patient was placed in a dependent position appropriate for central line placement based on the vein to be cannulated. The patient's left neck was prepped and draped in sterile fashion using chlorhexidine, maximum barrier precautions, sterile
gloves, Gown drapes and mask.
1% Lidocaine was used to anesthetize the surrounding skin area. Ultrasound was used in real time to localize vein and guide introducer needle. An introducer needle was placed into the left internal jugular vein using ultrasound guidance. A
guidewire was introduced without resistance. Under ultrasound guidance, confirmation of guidewire in vein was performed before dilation. Dilation was done over guidewire without complications. The cordis catheter was then threaded smoothly over the
guide wire and into the central venous system. The guidewire was removed and appropriate blood return was obtained from each lumen. Each lumen of the catheter was evacuated of any remaining air and flushed freely with sterile saline. The catheter
was then secured with a stat lock to the skin and a sterile occlusive dressing with Biopatch applied. An upright chest film was obtained after the procedure to assess for complications of insertion.
Estimated blood loss: 0 mL
Patient tolerated procedure well.
[2024-04-19] MEDS: LOPRESSOR 12.5 MG PO (10:29)
[2024-04-19] MEDS: MAGNESIUM OXIDE 500 MG PO (10:29)
[2024-04-19] MEDS: PROTONIX 40 MG PO (10:29)
--- NOTE | 2024-04-19 11:00 | PTCARENOTE ---
L radial arterial line, RIJ Cordis placed at bedside by JAMES Pati, patient tolerated well. Urology to see patient, catheter placed. Pre-operative medications administered as ordered. Patient transported to CVOR via bed.
--- NOTE | 2024-04-19 11:10 | W.CVOR.SURPR ---
CVOR Surgeon Immed Pre Op
-
I have examined this patient prior to performance of the scheduled procedure.
The patient's condition is unchanged from the time of the dictated/written History and
Physical and the patient is able to undergo the scheduled procedure.
CABG + LAKSHMI clip
[2024-04-19 11:33] LABS: ACT+ - POC 118 Seconds (82-134)
[2024-04-19 12:47] LABS: ACT+ - POC 683 Seconds (82-134)
--- NOTE | 2024-04-19 12:51 | CM ---
Reviewed chart. Mr. Cervantes is in the operating room today. Prior to admission he resides alone in third floor apartment. He has three flight of steps to enter the apartment. Prior to admission he was independent with ambulation and adls. He does
not have any DM in the home. He is planning on going to his daughters home for a few weeks. Medical work-up in progress. The discharge plan is to go to his daughters home with a home visit by the Transitional Care Nurse when medically stable.
[2024-04-19 13:19] LABS: ACT+ - POC 830 Seconds (82-134)
[2024-04-19 13:32] LABS: Glucose - POC 121 mg/dl (70-99); HCO3 - POC 28 mmol/L (21-28); Hematocrit - POC 37 % PCV (42-52); Hemodilution- POC Yes; Hemoglobin Calculated - POC 12.5; Ionized Calcium - POC 0.97 mmol/L (1.15-1.33); Lactate - POC 0.52 mmol/L (0.36-0.75); O2 Saturation %Calculated-POC 99.9 % (94-98); PCO2 - POC 47 mmHg (35-48); PO2 - POC 354 mmHg (83-108); Potassium - POC 4.9 mmol/L (3.5-5.1); Sodium - POC 140 mmol/L (136-145); Specimen Type - POC Arterial; pH - POC 7.38 (7.35-7.45)
[2024-04-19 13:44] LABS: ACT+ - POC 652 Seconds (82-134)
[2024-04-19 14:14] LABS: B.E. - POC 1.8 mmol/L; Glucose - POC 133 mg/dl (70-99); HCO3 - POC 26 mmol/L (21-28); Hematocrit - POC 37 % PCV (42-52); Hemodilution- POC Yes; Hemoglobin Calculated - POC 12.7; Ionized Calcium - POC 0.99 mmol/L (1.15-1.33); Lactate - POC 0.68 mmol/L (0.36-0.75); O2 Saturation %Calculated-POC 99.9 % (94-98); PCO2 - POC 38 mmHg (35-48); PO2 - POC 327 mmHg (83-108); Sodium - POC 141 mmol/L (136-145); Specimen Type - POC Arterial; pH - POC 7.44 (7.35-7.45)
[2024-04-19 14:17] LABS: ACT+ - POC 134 Seconds (82-134)
[2024-04-19 14:18] LABS: B.E. - POC -0.7 mmol/L; Glucose - POC 108 mg/dl (70-99); HCO3 - POC 24 mmol/L (21-28); Hematocrit - POC 44 % PCV (42-52); Hemodilution- POC No; Hemoglobin Calculated - POC 14.9; Ionized Calcium - POC 1.13 mmol/L (1.15-1.33); Lactate - POC < 0.30 mmol/L (0.36-0.75); O2 Saturation %Calculated-POC 99.9 % (94-98); PCO2 - POC 40 mmHg (35-48); PO2 - POC 348 mmHg (83-108); Potassium - POC 3.6 mmol/L (3.5-5.1); Sodium - POC 143 mmol/L (136-145); Specimen Type - POC Arterial; pH - POC 7.39 (7.35-7.45)
[2024-04-19 14:28] LABS: B.E. - POC 0.7 mmol/L; Glucose - POC 133 mg/dl (70-99); HCO3 - POC 26 mmol/L (21-28); Hematocrit - POC 37 % PCV (42-52); Hemodilution- POC Yes; Hemoglobin Calculated - POC 12.6; Ionized Calcium - POC 1.36 mmol/L (1.15-1.33); Lactate - POC 1.15 mmol/L (0.36-0.75); O2 Saturation %Calculated-POC 99.9 % (94-98); PCO2 - POC 41 mmHg (35-48); PO2 - POC 322 mmHg (83-108); Potassium - POC 4.3 mmol/L (3.5-5.1); Sodium - POC 142 mmol/L (136-145); Specimen Type - POC Arterial; pH - POC 7.41 (7.35-7.45)
--- NOTE | 2024-04-19 14:46 | W.PN.CT.SURG ---
CT Surgery Operative Note
-
CARDIAC SURGERY OPERATIVE REPORT
Preoperative Diagnosis: Multivessel Coronary Artery Disease with NSTEMI
Postoperative Diagnosis: Same
Procedure(s) Performed:
1. Standard sternotomy with aortic and right atrial cannulation
2. Coronary artery bypass grafting x 4 (In situ NAIR to LAD, Ao to RSVG to OM1, Ao to RSVG to RPDA seq to OM3)
3. Left atrial appendage exclusion [35 mm clip]
4. Endoscopic vein harvesting of right lower extremity
5. Placement of temporary ventricular pacing wires
6. Transesophageal echocardiography
Date of Surgery: 04/19/2024
Comorbidities:
1. NSTEMI with multivessel coronary artery disease
2. Prior PCI with stenting
3. Hypertension
4. Hyperlipidemia
5. Tobacco abuse
6. Right bundle branch block
7. COPD
8. Left heart catheter this admission
9. BPH status post TURP
10. Hematuria, iatrogenic
Attending Surgeon: Raymond Hi MD, MS
Assistants: Jes Gamboa PA-C (present and necessary to mate first, retraction, suction, exposure, suture management, and wound closure under my direction) and Valerie Verduzco PA-C (endo vein harvest)
Anesthesiology: Erik Rubi MD and Mary Ann Leung CRNA
Scrub and Circulating RNs: Luis Morales RN, Yessi Stephenson RN
Aircraft Machinist Helper: Carlo Castanon CCP
Anesthesia: GETA
EBL: per perfusion records
Products: None
CPB Time: 78 minutes
Aortic Cross Clamp Time: 67 minutes
Indication(s) for Procedures: This is a 78-year-old male with multiple comorbidities who presented to the hospital with chest pain radiating to the back and was found to have an NSTEMI with multivessel coronary artery disease. Given his disease
pattern, he was offered surgical revascularization.
Conduit(s) Quality:
NAIR -excellent/good flow good quality and size
RSVG -average to good/the distal end of the vein did taper quite a bit to a smaller size in the proximal portion of vein was thickened and inflamed. Minor varicosities
Target(s) Quality:
RPDA -excellent/large sized target with good flow on test dosing antegrade, this was sequenced to an OM 3 which was on the lateral inferior wall. Flow probe assessment of the graft demonstrated mean flow of approximately 40 cc a minute at a
pulsatile index of 3.9
OM 3�smaller size target approximately 1.25 to 1.5 mm and thin-walled, there was a flow of approximately 20 to 30 cc a minute at a pressure of 80 mmHg
OM1�fair sized target, had a flow of approximately 2030 cc a minute at a pressure of 85 mmHg, flow probe assessment demonstrated a mean flow of approximately 10 cc a minute at a pulsatility index of 2.1
LAD -excellent/large sized graft that was intramyocardial, able to be traced, good visual flow in the LAD territory, flow probe assessment with a mean flow of approximately 20 cc a minute at a pulsatility index of 2.6
Findings: His left ventricular ejection fraction preoperatively was normal at 60% with no significant regional wall motion abnormalities. Following surgery his EF remained the same at 60%, perhaps mildly hyperdynamic to 65% with no new regional
wall motion abnormalities. The NAIR was harvested in a skeletonized fashion. Following bypass grafting, test dose cardioplegia was given down each distal and confirmed patency and hemostasis. Flow probe was used to assess all graft with occlusion
the case and had adequate flows. He was in sinus rhythm. He did not require any inotropic support. After short period of VVI pacing he returned to his [place] rhythm. No blood products were used. His left atrial appendage was verified to be free
of any thrombus or debris preoperatively and found to be totally occlusive postoperatively with a 35 mm device (AtriCure, serial #[id number]).
Description of Procedure: The patient was taken to the operating room. Their identity and procedure to be performed were verified and they were positioned supine on the operating table. Induction via general anesthesia with endotracheal intubation
was performed and central venous access and arterial monitoring were inserted. A preoperative transesophageal echocardiogram was performed to assess cardiac function and valvular function. The patient was then prepped and draped from chin to feet in
a sterile fashion. A preoperative time-out was performed with all members of the team present. A midline chest incision was performed along with median sternotomy. Simultaneous endoscopic access of the right lower extremity for saphenous vein
harvest was obtained along with administration of an initial 5,000 units of IV heparin. A RulTract sternal retractor was positioned to exposure the left internal mammary bed. The mammary was harvested and found to have good flow. A bulldog clamp was
applied to the distal end of the mammary after dividing it. It was wrapped in a papaverine soaked RayTec and replaced back into the left hemithorax. The RulTract was exchanged for a median sternal retractor. The innominate vein was isolated. Full
heparinization was given (a total of 40,000 units). We created a pericardial well. The aortic cannulation site was chosen where it was soft, pliable, and free of calcium. Cannulation was performed with an arterial cannula in the ascending aorta and
a triple-stage venous cannula through the right atrial appendage. The arterial cannula line had an appropriate bounce and correlating pressures with test dosing. Next, a root vent/antegrade cannula was inserted into the ascending aorta. The ACT was
confirmed to be over 400 and retrograde autologous priming was performed before commencing cardiopulmonary bypass. The pulmonary artery was away from the aorta to facilitate a clamp site. The aortic cross-clamp was placed after decreasing
the flow on the bypass and mean arterial pressure. A total of 1.2L initial dose of antegrade Del-Nido cardioplegia solution was given and planned for re-dosing every 75 minutes as necessary. There was rapid electro-mechanical arrest of the heart at
400 cc of cardioplegia. The left ventricle was observed for distention on echocardiogram and manual palpation. Cold slush was placed into a sponge and topically on the RV while we systemically cooled to 34 degrees centigrade. Once the heart was
fully arrested it was rotated medially and the left atrial appendage was ligated using a 35 mm device.
I positioned the heart to expose the distal right coronary at the posterior descending artery and the OM 3 branch. I like to perform a sequential graft here and so dissected the OM 3 coronary artery and performed a small arteriotomy. The distal
end of the vein graft was beveled accordingly and end-to-side anastomosis was created with 7-0 Prolene in a running fashion. Test dosing antegrade was given on the graft to verify hemostasis and flow. The vein graft was then measured to
accommodate a sequential graft and to reach the aorta. The underbelly of the vein graft was then incised and enlarged with [place] scissors. A conf[place] salish blade was used to expose the RPDA coronary and perform the arteriotomy. Coronary [place] scissors
were used to enlarge the incision. The distal aqmu-uv-donp anastomosis was performed using 7-0 prolene. Antegrade cardioplegia was administered into the graft with the distal end clamped to verify flow and hemostasis. Appropriate hemostasis and
flow were confirmed. The graft was measured for length to the aorta and cut. A suitable site on the first obtuse marginal was chosen. We dissected and prepared the distal target in a similar fashion. An end-to-side anastomosis was created with a
7-0 prolene. Antegrade cardioplegia was administered into the graft. Appropriate hemostasis and flow were confirmed. The graft was measured for length to the aorta and cut. A suitable target on the mid/distal left anterior descending was identified.
We dissected and prepared the distal target in a similar fashion. We retrieved the NAIR from the chest and created a pericardial opening while being cognizant of the phrenic nerve to facilitate the course of the mammary. The distal end of the
mammary was prepped and beveled to size. We verified orientation and length of the JOSH and found brisk flow. An end-to-side anastomosis was created with a 7-0 prolene. We temporarily released the bulldog clamp on the mammary to inspect flow.
Perfusion to the LAD territory was visualized and hemostasis was confirmed. The bull clamp was replaced on the mammary. The heart was filled and the root was distended with antegrade cardioplegia to make final assessment of graft length and
orientation. We created 2 aortotomies using a #11 blade then a 4.0mm aortic punch. The proximal anastomoses were created in an end-to-side fashion using 6-0 prolene and 7-0 Prolene. At the the same time, we re-warmed to 36.5 degrees centigrade. The
bulldog clamp was removed from the mammary. Temporary bipolar ventricular pacing wires were placed on the base of the right ventricle. The patient was placed in a Trendelenburg position and flows on bypass were lowered. The aortic cross clamp was
removed and flows were slowly brought back up. All bypass grafts were inspected and were free from kinking or twisting. 6-0 Prolene was used to tack the vein graft to the RPDA and OM along the anterior surface of the heart. The distal and proximal
anastomoses appeared hemostatic. Once transesophageal echocardiography appeared satisfactory for de-airing, the flows were temporarily lowered for root vent removal. After verifying acceptable parameters, we initiated weaning from cardiopulmonary
bypass. Once we were off cardiopulmonary bypass, the venous cannula was clamped and removed. A test dose of protamine was administered and the patient was monitored for any adverse reaction before resuming protamine. Once half of the protamine dose
was delivered, pump suckers were turned off and the systolic blood pressure was lowered for aortic decannulation. The aortic cannula was removed and pursestrings were tied down. All cannulation sites were oversewn with a 4-0 prolene. The mammary bed
was inspected and hemostasis was confirmed. Once the mediastinum was hemostatic, 19Fr Benedicto drain was placed in the left pleural cavity and two 24Fr Benedicto drains were placed within the pericardium. The sternum was approximated with 4 #7 single and 3
#8 double stainless steel wires. Fascia was approximated with #1 vicryl suture. The subcutaneous, dermis and epidermis were closed in layers in a running fashion. The skin wound was cleansed and dressed.
All instrument, sponge, and needle counts were confirmed to be correct x 2 at the end of the operation. The patient was transferred to the cardiac intensive care unit in critical but stable condition.
I, Dr. Raymond Hi, was present, scrubbed for, and performed all critical elements of this procedure.
Raymond Hi MD, MS
Cardiothoracic Surgeon
[facility]
This operative dictation was created using the [employer] dictation system. Please excuse any grammatical, typographical, or 'sound alike' errors
--- NOTE | 2024-04-19 14:56 | CON.INTV ---
Consultation
Consultation Request
Date/Time Consultation Requested: 04/19/2024 - 143
Date/Time Consultation Performed: 04/19/2024 - 1450
Requesting Provider: LORA Aponte
Performing Provider: Dr. Solano
Reason for Consultation: s/p CABG x4
Medical History
-
Chief Complaint: Chest pain
History of Present Illness:
78-year-old male with a past medical history of PUD who presented with chest pain. Pain was worse with activity and better with rest. Initial echo showed preserved biventricular function with no significant valvular heart disease. Left heart
catheterization on 04/14/2024 showed multivessel CAD with 50% ostial and extensive atherosclerotic disease involving the mid LAD and diagonal branch. Chronic subtotal occlusion of the mid RCA with a distal RCA filling via right to right collaterals
from an RV marginal branch. Moderate coronary disease at the origin of small to medium caliber OM1 and in the midportion of OM3. Spirometry performed today showed a mild obstructive lung defect with FEV1/FVC: 61/80% predicted with FEV1: 2.41
L/102%. Cardiothoracic surgery consulted and patient agreed to surgical revascularization. Today he underwent a CABG x 4 with a left atrial appendage exclusion with a 35mm clip. There were no immediate complications and patient was transferred to
the CVICU in stable condition with resident hall director services consulted for additional management/recommendations.
When I saw the patient he was resting in bed in no acute distress. Intubated on SIMV at 14/500/40%/5, with PIP: 21 cmH2O, VTe 505mL and breathing at 14 breaths/minute. Heart rate 73, BP via left radial A-line: 117/65 and saturating 93%. He has
mediastinal chest tubes x 2 and left pleural chest tube. Currently on insulin drip at 4 units/h.
PMHx: Peptic ulcer disease with history of perforated ulcer, former tobacco smoker
PSHx: Perforated ulcer repair + TURP
Past Medical History
Past Medical History: Other (Above as per HPI)
Past Surgical History: Other (Above as per HPI)
Social History
Tobacco: Former Smoker (35-aqju-gnlm history)
Alcohol: None
Drug: None
Employment: Retired
Allergies / Home Medications
Allergies
Allergy/AdvReac Type Severity Reaction Status Date / Time
influenza virus vaccine, Allergy Vomiting Verified 04/16/24 12:34
specific 1966
[Influenza Virus
Vacc,Specific]
meperidine HCl [From Demerol] Allergy agitation Verified 04/16/24 12:34
morphine Allergy hallucinating Verified 04/18/24 22:06
and
agitation
Home Medications
�Medication �Instructions �Recorded �Confirmed �Last Taken �Type
[id number]-[id number] 200 mcg-lycop 1 ea PO DAILY Supplement 07/29/12 04/16/24 04/16/24 History
175 mcg-lutei 250 mcg-herb 178
tablet (Romel Multivitamin For Men)
ibuprofen 200 mg tablet (Advil) 400 mg PO Q6H PRN pain 04/16/24 04/16/24 Unknown History
Review of Systems
-
Unable to Obtain full review of systems at this time due to: Patient Intubation
Vitals / Labs / Diagnostic Testing
Vital Signs
Temp Pulse Resp BP Pulse Ox
97.4 F 71 14 124/59 96
04/19/24 16:00 04/19/24 16:14 04/19/24 16:00 04/19/24 10:29 04/19/24 16:14
Lab Data
04/19/24 15:12
Laboratory Results
04/18/24 04/18/24 04/18/24
15:45 18:31 22:52
PT Cancelled
INR Cancelled
APTT Cancelled Cancelled
pH 7.47 H
pCO2 35
pO2 79 L
HCO3 25.5
O2 Delivery Level Not Reportable
04/18/24 04/19/24 04/19/24
23:15 00:30 05:13
PT 14.3 14.9 H
INR 1.08 1.14
APTT 98.8 H Cancelled 105.7 H
pH
pCO2
pO2
HCO3
O2 Delivery Level
04/19/24
15:12
PT 17.7 H
INR 1.43
APTT 35.7 H
pH 7.38
pCO2 41
pO2 110 H
HCO3 24.3
O2 Delivery Level
Diagnostic Testing:
Physical Exam
-
HEENT: Normocephalic, Anicteric and Other (ETT in place)
Cardiovascular: S1/S2 and Peripheral Edema (negative)
Respiratory: Wheeze (negative), Rales (negative), Rhonchi (negative), Non-Labored Respirations and Other (Left pleural chest tube + mediastinal chest tubes x 2)
GI: Soft
Neurology: Tremors (negative) and Other (Sedated)
Skin: Warm and Dry
General: Respiratory Distress (negative), Comfortable, Fever (negative), Chills (negative) and Other (Intubated/sedated)
Assessment
-
Assessment: 78-year-old male with a past medical history of PUD who presented with chest pain. Pain was worse with activity and better with rest. Initial echo showed preserved biventricular function with no significant valvular heart disease.
Left heart catheterization on 04/14/2024 showed multivessel CAD with 50% ostial and extensive atherosclerotic disease involving the mid LAD and diagonal branch. Chronic subtotal occlusion of the mid RCA with a distal RCA filling via right to right
collaterals from an RV marginal branch. Moderate coronary disease at the origin of small to medium caliber OM1 and in the midportion of OM3. Spirometry performed 04/19/2024 showed a mild obstructive lung defect with FEV1/FVC: 61/80% predicted with
FEV1: 2.41 L/102%. Cardiothoracic surgery consulted and patient agreed to surgical revascularization. On 04/19/2024, he underwent a CABG x 4 with a left atrial appendage exclusion with a 35mm clip. There were no immediate complications and patient
was transferred to the CVICU in stable condition with resident hall director services consulted for additional management/recommendations.
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
Impression:
#Multivessel CAD s/p CABG x 4 with left atrial appendage exclusion with 35mm clip (POD #0)
#NSTEMI
#Thrombocytopenia likely due to surgical revascularization
#History of hypertension
#History of tobacco use disorder
#Suspected COPD with a mild obstructive lung defect seen on spirometry from 04/19/2024
Plan:
Ventilator settings reviewed
FiO2 will be weaned to maintain SpO2 >90-94%
Minute ventilation will be adjusted
Arterial blood gases will be monitored
Spontaneous breathing trial will be attempted with hopeful extubation after anesthesia/sedation wear off
prn nebulized bronchodilators
Recommend outpatient PFTs given his mild obstructive lung defect to assess for persistent obstruction/COPD - outpatient pulmonary evaluation will be arranged
Pulmonary artery catheter parameters will be followed
Pressors/antihypertensive/inotropes/diuretics will be provided as needed
Maintain MAP>65
Replete electrolytes with K>4, Mg>2
Monitor chest tube output (left pleural chest tube + mediastinal chest tubes x 2)
Monitor hemoglobin
Monitor platelet count and coags
Transfuse blood products as needed to maintain Hb>7g/dL, plt>50k (given post-operative status)
CT surgery managing chest tubes
Monitor blood sugar to maintain euglycemia with goal BG 140-180
Insulin drip per protocol
Aspiration precautions
VAP prevention protocol
DVT prophylaxis
Early nutrition
Early mobilization
Critical care statement: A total of 46 minutes of critical care time was provided for this patient today. This includes management of ventilator, spontaneous breathing trial, arterial blood gases, pressors, of unstable vital signs, evaluation of the
patient at bedside, reviewing the patient's pertinent medical records including radiographs, microbiology, laboratory evaluations, and discussion with primary team and critical care nursing.
--- NOTE | 2024-04-19 15:09 | W.PN.UPDATE ---
Update Note
Progress Note Update
78-year-old male admitted to [facility] [facility] on 04/16 with complaints of chest pain. EKG reported new anterior T wave inversions with left anterior fascicular block and elevated troponin (0.05>0.1). [facility] reported MVCAD. Urology consulted pre-op for
severely enlarged prostate and Chaudhari irrigated pre-op for hematuria
IV fluids: 1300
U.O.:� 800
Blood:� none
Wires:�Bipolar v-wire
Infusions: Levophed @ 4, Precedex @ 0.5, Insulin
�
NEURO: sedated, pupils +2mm B/L
RESP: #8OT @24cm> 500/40%/14/5. Lungs clear B/L. 2 mediastinal (5cc on arrival) and L pleural (0cc on arrival) chest tubes to -20cm suction. Sanguineous drainage. No air leak, no crepitus
CV: RRR +S1, S2, no S3, no�rub, no murmur. Dermabond to median sternotomy. RIJ w/slick intact
ABD: round, soft, no BS. Small umbilical hernia
EXT: no edema, +2/4 DP pulses B/L, no femoral bruit, RLE JOMAR wrap intact; left radial A-line intact
: Chaudhari with clear yellow urine and red flecks
�
A/P: POD #0 s/p CABG x 4 (NAIR to LAD, RSVG to OM1, RSVG to RPDA seq to OM3), left atrial appendage exclusion [#35 mm clip]
ANNIE: EF� 60-65%
- wean and extubate
# CAD
- will require ASA/Plavix, statin, beta-chato
�
# acute surgical blood loss anemia-expected
- trend CBC
�
�# BPH
- initiate Flomax prior to Chaudhari
�
# Tobacco abuse/COPD
- offer Nicotine patch
[2024-04-19 15:14] LABS: Glucose - Point of Care 141 mg/dl (70-99)
--- NOTE | 2024-04-19 15:16 | CONS.URO ---
Consultation
-
Performing Provider: Thor
Reason for Consultation: Hematuria
Medical History
History of Present Illness
78M with hx of BPH and TURP with Dr. Forbes many years ago
Recent workup imaging for CAD incidentally showed very large prostate volume
CT surgery reached out preop to manage garcia catheter
Nursing was able to place a garcia last night without apparent difficulty, but overnight patient had gross hematuria with clots requiring irrigation
This AM urine is light red and draining well via 16fr temp probe catheter
At his baseline, patient does not have any bothersome urinary symptoms since his TURP many years ago
He empties without difficulty and has a good stream standing to void
No nocturia or dribbling, no straining, no prior hematuria episodes
Past Medical History
Past Medical History: Other (CAD, COPD, HTN and Hypercholesterolemia)
Past Surgical History: Other (TURP)
Social History
Tobacco: Non-smoker
Personal:
Living: With Family
Employment: Retired
Family History
Family History: Reviewed & Not Pertinent
Allergies/Home Medications
Allergies
Allergy/AdvReac Type Severity Reaction Status Date / Time
influenza virus vaccine, Allergy Vomiting Verified 04/16/24 12:34
specific 1966
[Influenza Virus
Vacc,Specific]
meperidine HCl [From Demerol] Allergy agitation Verified 04/16/24 12:34
morphine Allergy hallucinating Verified 04/18/24 22:06
and
agitation
Home Medications
�Medication �Instructions �Recorded �Confirmed �Type
ebocikmf-sbb-txyzh 200 mcg-lycop 1 ea PO DAILY Supplement 07/29/12 04/16/24 History
175 mcg-lutei 250 mcg-herb 178
tablet (Romel Multivitamin For Men)
ibuprofen 200 mg tablet (Advil) 400 mg PO Q6H PRN pain 04/16/24 04/16/24 History
Physical Exam
Vital Signs
Vital Signs
Temp Pulse Resp BP Pulse Ox
97.4 F 73 20 124/59 96
04/19/24 15:14 04/19/24 15:08 04/19/24 10:54 04/19/24 10:29 04/19/24 15:08
Physical Exam
General: Well Developed, Well Nourished and No Apparent Distress
Respiratory: Clear and Non Labored Respirations
GI: Soft and Non Tender
Genito-urinary: No Costovertebral Tend, Bloody Urine and Garcia Catheter
Neuro: AO x 3
Psych: Calm and Intact Judgement
Assessment / Plan
-
78M with BPH, remote hx of TURP, with prostatomegaly
Gross hematuria following garcia placement before scheduled CABG
- 16Fr temp probe cath exchanged for 18fr coude without difficulty or resistance. Positioning of catheter suggests initial balloon was inflated within or pulled back into the prostatic urethra
- Minimal hematuria with catheter irrigation, no clots
- Trend hematuria during and post CABG, irrigate PRN clots or obstruction
- Maintain garcia until hematuria resolved
Data Reviewed
-
CT Scan: Image personally visualized and interpreted
Lab Data: Labs Reviewed
[2024-04-19 15:21] LABS: B.E. -0.8 mmol/L; HCO3 24.3 mmol/L (21-28); Ionized Calcium 1.17 mMOL/L (1.15-1.33); PCO2 41 mmHg (35-48); PO2 110 mmHg (83-108); Potassium 4.2 mMOL/L (3.5-5.1); Sodium 138 mMOL/L (136-145); pH 7.38 (7.35-7.45)
[2024-04-19 15:27] LABS: Hematocrit 38.9 % (39.0-52.0); Hemoglobin 13.6 g/dL (13.0-18.0); Platelet Count 136 10^3/uL (130-400)
[2024-04-19] MEDS: LR 250 ML IV ×2 (15:30→17:24)
[2024-04-19 15:31] LABS: INR 1.43; PT 17.7 Sec (11.4-14.6)
[2024-04-19 15:32] LABS: APTT 35.7 Sec (23.4-35.0)
--- NOTE | 2024-04-19 15:36 | W.PN.CARDCBS ---
Addendum entered and electronically signed by Luis Garcia DO 04/19/24 21:25:
I saw and examined the patient.
The Inventory Worker's note was reviewed and I agree with the note.
Comment:
Cont post op care
Wean vent as protocol
Wean IV levo
Remains sinus with stable EKG
Compensated cv status
Discussed with nursing.
Original Note:
Today's Communication / Plan
-
Continue postoperative care
Follow hematuria
Impression / Plan
-
Cardiology: Previously seen by Dr. Mata Santoro, 2020
Primary care: None
.
Assessment:
Chest pain
NSTEMI with peak trop 0.265
MV CAD by cath 04/18/24
Status post CABG x 4 (in situ NAIR to LAD, ao to RSVG to OM1, ao to RSVG to RPDA sequential to OM 3), LAKSHMI clip 04/19/24
Hematuria
Tobacco use disorder, continuous
Hypertension
COPD
Right bundle branch block, LAFB
Dyslipidemia
Common iliac artery aneurysm, mild
Abdominal aortic aneurysm, mild, 2.7 cm
Nephrocalcinosis
Cholelithiasis
Degenerative disc disease
History of BPH status post TURP
CT chest abdomen pelvis angio with and without contrast 04/16/2024: Severe calcific atherosclerotic plaque in the coronary arteries, moderate calcific atherosclerotic plaque and tortuosity of the descending thoracic aorta, mild interstitial pulmonary
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
moderate bilateral medullary nephrocalcinosis with small subcentimeter nonobstructing bilateral intrarenal calculi, cholelithiasis mild GB wall thickening, small hiatal hernia, severe discogenic degenerative disease L5/S1, severe bilateral facet
joint arthrosis at L4-L5 with associated grade 1 anterolisthesis
ECHO 04/18/24: EF 55 to 60%, mild MR, trivial AI
Plan:
-Patient presented with chest pain. Ruled in for NSTEMI with peak troponin of 0.265. Underwent cardiac catheterization 04/14/2024 which showed multivessel CAD and CT surgery consulted. Preop echocardiogram with preserved EF and minimal mitral
valve disease
-Status post CABG x 4 (in situ NAIR to LAD, ao to RSVG to OM1, ao to RSVG to RPDA sequential to OM 3), LAKSHMI clip 04/19/24
-Had some hematuria noted post Chaudhari placement overnight. Urology following. Trend hemoglobin postoperatively, 13.6 initial
-post op EKG SR with RBBB, stable compared to prior
-on levo @ 2 and IVF, wean off as able
-continue post op care
-smoking cessation
-d/w nursing
Progress Note - Topographical Drafter
Subjective
Date of Service: April 19, 2024
Intubated, sedated
Objective
Labs:
Labs
Hgb 13.6 g/dL (13.0-18.0) 04/19/24 15:12
Hct 38.9 % (39.0-52.0) L 04/19/24 15:12
Plt Count 136 10^3/uL (130-400) D 04/19/24 15:12
PT 17.7 Sec (11.4-14.6) H 04/19/24 15:12
INR 1.43 04/19/24 15:12
APTT 35.7 Sec (23.4-35.0) H 04/19/24 15:12
Sodium 140 mmol/L (135-145) 04/19/24 05:13
Potassium 3.8 mmol/L (3.5-5.1) 04/19/24 05:13
BUN 18 mg/dl (9-20) 04/19/24 05:13
Creatinine 1.1 mg/dL (0.7-1.3) 02/25/25 05:13
Glucose 115 mg/dl (70-99) H 04/19/24 05:13
Troponins
04/16/24 04/16/24 04/17/24
17:28 23:10 05:21
Troponin I 0.160 H* D 0.265 H* D 0.194 H* D
Vital Signs and I&O:
Vital Signs
Temp Pulse Resp BP Pulse Ox
97.4 F 73 14 124/59 96
04/19/24 15:15 04/19/24 15:08 04/19/24 15:15 04/19/24 10:29 04/19/24 15:21
Vital Signs
Temp Pulse Resp BP Pulse Ox
97.4 F 73 14 124/59 96
04/19/24 15:15 04/19/24 15:08 04/19/24 15:15 04/19/24 10:29 04/19/24 15:21
Intake & Output
04/17/24 04/18/24 04/19/24 04/20/24
07:59 07:59 07:59 07:59
Intake Total
Output Total 2074 100 / 100
Balance -2062 / -2062 -76 / -76
Physical Exam
Physical Exam
GEN: No distress, intubated, sedated. On [facility] [place]
HEENT: supple, mmm
LUNGS: CTA bilaterally, no wheezes/rales
CV: Reg, S1/S2, no murmur
EXT: No cyanosis, clubbing, edema
NEURO: Sedated
SKIN: Warm, pink, dry. No rash. Sternotomy incision clean dry and intact
[2024-04-19 15:37] LABS: Blood Urea Nitrogen 16 mg/dl (9-20); Estimated Creatinine Clearance 50 ml/min; Glucose 146 mg/dl (70-99); Magnesium 3.2 mg/dl (1.6-2.3)
[2024-04-19] MEDS: NSS 500 IV (15:42)
[2024-04-19] MEDS: PACERONE PO ×2 (15:42→22:08)
[2024-04-19] MEDS: CALCIUM GLUCONATE 100 IV (15:42)
[2024-04-19] MEDS: NEURONTIN PO ×2 (15:42→22:07)
[2024-04-19] MEDS: ANCEF 10 IV ×2 (15:42)
[2024-04-19 15:58] LABS: Glucose - Point of Care 168 mg/dl (70-99)
--- NOTE | 2024-04-19 16:18 | PTCARENOTE ---
Patient received from CVOR s/p CABG x 3/LAAL. RIJ Cordis/L radial arterial lines present - leveled, flushed, and calibrated w/good waveforms returned. Epicardial V-wire tied to pulse generator. Mediastinal chest tubes x 2, Y-connected to one
pleurevac, L pleural chest tube to separate collection chamber - both placed to -20cm suction w/no air leaks noted. Chaudhari catheter placed prior to surgery by urology, pink tinged drainage noted. All procedural sites stable. Labs drawn, EKG
performed, pcxr obtained. See work list for full assessment, interventions performed, and intravenous infusions and titration rates.
[2024-04-19 17:00] LABS: Glucose - Point of Care 132 mg/dl (70-99)
[2024-04-19] MEDS: LIPITOR PO (17:16)
[2024-04-19 17:58] LABS: Glucose - Point of Care 127 mg/dl (70-99)
[2024-04-19 18:53] LABS: B.E. -2.2 mmol/L; HCO3 23.7 mmol/L (21-28); O2 Saturation % 99.2 % (94-98); PCO2 44 mmHg (35-48); PO2 113 mmHg (83-108); pH 7.34 (7.35-7.45)
[2024-04-19 18:54] LABS: Hematocrit 41.9 % (39.0-52.0); Hemoglobin 14.7 g/dL (13.0-18.0); Platelet Count 172 10^3/uL (130-400)
[2024-04-19 19:06] LABS: Glucose - Point of Care 108 mg/dl (70-99)
--- NOTE | 2024-04-19 19:38 | PTCARENOTE ---
received pt from previous rn. VSS, pt intubated and sedated, NSR w/ RBBB per tele monitor, + pulses, CVP 5-7, BP 106/59, v wire tied to pulse generator. ET 8.0/22cm at the lip, SIMV 40%/500/14/5/5, pox 97%, lungs diminished, Mediastinal chest tubes
x 2, Y-connected to one pleurevac, L pleural chest tube to separate collection chamber - both placed to -20cm suction w/no air leaks noted. hypoactive bs, garcia draining clear yellow urine, all surgical sites intact. RIJ Cordis/L radial arterial
lines present - leveled, flushed, and calibrated w/good waveforms. piv infusing insuline per glycemic protocol.
gtts:
insulin
levo
[2024-04-19 20:00] LABS: Glucose - Point of Care 107 mg/dl (70-99)
[2024-04-19] MEDS: SENOKOT-S PO (20:19)
[2024-04-19] MEDS: ASPIRIN 300 MG RECTAL (20:46)
[2024-04-19 21:52] LABS: Glucose - Point of Care 102 mg/dl (70-99)
[2024-04-19] MEDS: TYLENOL PO (22:08)
[2024-04-19] MEDS: ANCEF 5 IV (22:11)
[2024-04-19 23:10] LABS: B.E. -0.6 mmol/L; HCO3 24.9 mmol/L (21-28); Ionized Calcium 1.25 mMOL/L (1.15-1.33); O2 Saturation % 99.6 % (94-98); PCO2 43 mmHg (35-48); PO2 112 mmHg (83-108); Potassium 4.1 mMOL/L (3.5-5.1); pH 7.37 (7.35-7.45)
[2024-04-19 23:13] LABS: Mixed Venous O2 Saturation 67.4 %
[2024-04-19 23:50] LABS: Glucose - Point of Care 102 mg/dl (70-99)
[2024-04-20] VITALS (34 sets, daily range): BP systolic 80–134; BP diastolic 55–121; PULSE 82; O2SAT 92–98; BMI 28.6
[2024-04-20] MEDS: OFIRMEV 100 IV (00:17)
[2024-04-20 00:42] LABS: B.E. -2.9 mmol/L; HCO3 22.6 mmol/L (21-28); PCO2 41 mmHg (35-48); PO2 97 mmHg (83-108); pH 7.35 (7.35-7.45)
[2024-04-20 00:44] LABS: O2 Therapy CPAP
--- NOTE | 2024-04-20 01:15 | W.PN.CT ---
Today's Communication / Plan
-
-pod #1
-extubated uneventfully @ 12:50 am. IS was upto 2250
-mVO2 67.4. Drips: Levo 3, Insulin
-CT output: 2 med 90/135, L pleur 25/30 in 12/24 hrs
-wean off Levo, then deline
-monitor rhythm (RBBB/LAFB preop). In nsr with occasional PVC overnight. Has vvi pw
-follow Cr - 1.4 today (1.1-1.4 preop)
-follow wbc
-d/c insulin
-Chaudhari (hematuria preop, now resolved)
-encourage IS, OOB
Assessment / Plan
-
- NSTEMI with mv-CAD- s/p CABG x 4 (In situ NAIR to LAD, Ao to RSVG to OM1, Ao to RSVG to RPDA seq to OM3); Left atrial appendage exclusion [35 mm clip] on 04/19/24, pod #1
- Intraop ANNIE: LVEF was 60% with no significant regional wall motion abnormalities. Following surgery, his EF remained the same at 60%, perhaps mildly hyperdynamic to 65% with no new regional wma. His left atrial appendage was verified to be free
of any thrombus or debris preoperatively and found to be totally occlusive postoperatively with a 35 mm device (AtriCure, serial #[id number]).
- Prior PCI with stenting
- Hypertension
- Hyperlipidemia
- Tobacco abuse currently
- RBBB, LAFB preop
- COPD
- Left heart catheter this admission
- BPH status post TURP
- Hematuria, iatrogenic - resolved, Chaudhari irrigated by Urology preop
- Acute postop atelectasis
- Acute postop hypovolemia with subsequent hypervolemia
Discussed patient care with: Nursing and Care Team
Subjective
-
Date of Service: April 20, 2024
Objective Data
-
PT 17.7 Sec (11.4-14.6) H 04/19/24 15:12
INR 1.43 04/19/24 15:12
APTT 35.7 Sec (23.4-35.0) H 04/19/24 15:12
Vital Signs
Vital Signs
Temp Pulse Resp BP Pulse Ox
98.1 F 90 16 113/80 93
04/20/24 01:00 04/20/24 01:08 04/20/24 01:00 04/20/24 01:00 04/20/24 01:08
CT Intake/Output/Weight
04/19/24 04/19/24 04/20/24
06:59 18:59 06:59
Intake Total 730.4 / 1363.0 632.6 / 1363.0
Output Total 1949 980 / 1440 460 / 1440
Balance -1949 / -249.6 / -77.0 172.6 / -77.0
SaO2: 93
Physical Exam
-
General: Awake and AOx3
Cardiovascular: Regular rate & rhythm, No Murmurs and No Rub
Respiratory: Decreased Breath Sounds
Sternum: Stable
Incision: Clean, Dry and Dressing Intact
Extremities: No Edema (2+ DP b/l)
Abdomen: soft, nontender, nondistended, + bowel sounds
Data Reviewed
-
Lab Results: Results Reviewed
Medications: Active Meds Reviewed
Chest X-Ray: Report Reviewed and Image Reviewed
ECG: Report Reviewed and Image Reviewed
[2024-04-20 02:01] LABS: Glucose - Point of Care 100 mg/dl (70-99)
--- NOTE | 2024-04-20 02:11 | PTCARENOTE ---
pt placed on CPAP @ 2405. Patient extubated at 2450 without incident. Placed on 6L via NC with saO2 at . Patient able to answer all orientation appropriately, moves all extremities appropriately.
[2024-04-20] MEDS: LEVOPHED 250 IV (03:21)
[2024-04-20 03:57] LABS: Hematocrit 39.9 % (39.0-52.0); Hemoglobin 13.9 g/dL (13.0-18.0); Mean Corp Hgb Conc. 34.8 g/dL (33.0-37.0); Mean Corpuscular Hgb 33.5 pg (27.0-31.0); Mean Corpuscular Volume 96.1 fL (80.0-94.0); Mean Platelet Volume 11.8 fL (7.4-10.4); Platelet Count 174 10^3/uL (130-400); Red Blood Cell Count 4.15 10^6/uL (4.70-6.10); Red Cell Dist. Width 13.3 % (11.5-14.5)
[2024-04-20 04:15] LABS: Glucose - Point of Care 79 mg/dl (70-99)
[2024-04-20 04:16] LABS: Blood Urea Nitrogen 24 mg/dl (9-20); Calcium 9.1 mg/dl (8.4-10.2); Carbon Dioxide 20 mmol/L (22-30); Chloride 108 mmol/L (98-107); Estimated Creatinine Clearance 36 ml/min; Glucose 87 mg/dl (70-99); Magnesium 2.5 mg/dl (1.6-2.3); Potassium 4.2 mmol/L (3.5-5.1); Sodium 140 mmol/L (135-145); eGFR 51.13
--- NOTE | 2024-04-20 04:46 | PTCARENOTE ---
EKg and routine labs obtained, VSS, BP supported with levo @ 3mcg/min, NSR per tele monitor HR 70-80s.
[2024-04-20 05:03] LABS: Glucose - Point of Care 100 mg/dl (70-99)
[2024-04-20] MEDS: TYLENOL 1000 MG PO ×3 (05:05→21:06)
[2024-04-20] MEDS: ANCEF 5 IV ×2 (05:05→13:37)
[2024-04-20 05:57] LABS: Glucose - Point of Care 112 mg/dl (70-99)
[2024-04-20] MEDS: ROXICODONE 2.5 MG PO ×3 (06:13→15:11)
[2024-04-20 06:18] LABS: B.E. -4.2 mmol/L; O2 Saturation % 97.5 % (94-98); PCO2 38 mmHg (35-48); PO2 79 mmHg (83-108); pH 7.35 (7.35-7.45)
[2024-04-20 06:22] LABS: O2 Therapy 2L NC
[2024-04-20] MEDS: SODIUM BICARBONATE 50 MEQ IV (06:48)
[2024-04-20 06:59] LABS: Glucose - Point of Care 91 mg/dl (70-99)
--- NOTE | 2024-04-20 07:38 | W.PN.CARDCBS ---
Addendum entered and electronically signed by Luis Garcia DO 04/20/24 10:08:
I saw and examined the patient.
The Junior Database Administrator's note was reviewed and I agree with the note.
Comment:
Plan:
Cont post op care
Stable cv status.
Off IV pressors.
Monitor cr
Smoking cessation discussed
Chest tube care per CT surgery
Discussed with nursing.
Original Note:
Today's Communication / Plan
-
continue post op care
Impression / Plan
-
Cardiology: Previously seen by Dr. Mata Santoro, 2020
Primary care: None
.
Assessment:
Chest pain
NSTEMI with peak trop 0.265
MV CAD by cath 04/18/24
Status post CABG x 4 (in situ NAIR to LAD, ao to RSVG to OM1, ao to RSVG to RPDA sequential to OM 3), LAKSHMI clip 04/19/24
Hematuria
Tobacco use disorder, continuous
Hypertension
COPD
Right bundle branch block, LAFB
Dyslipidemia
Common iliac artery aneurysm, mild
Abdominal aortic aneurysm, mild, 2.7 cm
Nephrocalcinosis
Cholelithiasis
Degenerative disc disease
History of BPH status post TURP
CT chest abdomen pelvis angio with and without contrast 04/16/2024: Severe calcific atherosclerotic plaque in the coronary arteries, moderate calcific atherosclerotic plaque and tortuosity of the descending thoracic aorta, mild interstitial pulmonary
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
moderate bilateral medullary nephrocalcinosis with small subcentimeter nonobstructing bilateral intrarenal calculi, cholelithiasis mild GB wall thickening, small hiatal hernia, severe discogenic degenerative disease L5/S1, severe bilateral facet
joint arthrosis at L4-L5 with associated grade 1 anterolisthesis
ECHO 04/18/24: EF 55 to 60%, mild MR, trivial AI
Plan:
-Status post CABG x 4 (in situ NAIR to LAD, ao to RSVG to OM1, ao to RSVG to RPDA sequential to OM 3), LAKSHMI clip 04/19/24
-with leukocytosis up to 31K, follow, possibly reactive
-remains on levo @2, wean as able.
-hgb stable at 13.9. continue asa, plavix. hematuria resolved
-post op EKG SR with RBBB, stable compared to prior. in SR on review of tele overnight
-Cr up to 1.4, follow post op
-continue post op care, IS encouraged
-smoking cessation
-family at bedside also reports cat scratch to L 3rd toe with some erythema. notified CT surgery
-d/w nursing, CT surg APIARIST. d/w family at bedside
PREADMIT DATA:
-Patient presented with chest pain. Ruled in for NSTEMI with peak troponin of 0.265. Underwent cardiac catheterization 04/14/2024 which showed multivessel CAD and CT surgery consulted. Preop echocardiogram with preserved EF and minimal mitral
valve disease
Progress Note - Executive Secretary
Subjective
Date of Service: April 20, 2024
reports feeling some discomfort and reports fatigue
Objective
Labs:
04/20/24 03:14
04/20/24 03:14
Labs
Hgb 13.9 g/dL (13.0-18.0) 04/20/24 03:14
Hct 39.9 % (39.0-52.0) 04/20/24 03:14
Plt Count 174 10^3/uL (130-400) 04/20/24 03:14
PT 17.7 Sec (11.4-14.6) H 04/19/24 15:12
INR 1.43 04/19/24 15:12
APTT 35.7 Sec (23.4-35.0) H 04/19/24 15:12
Sodium 140 mmol/L (135-145) 04/20/24 03:14
Potassium 4.2 mmol/L (3.5-5.1) 04/20/24 03:14
BUN 24 mg/dl (9-20) H 04/20/24 03:14
Creatinine 1.4 mg/dL (0.7-1.3) H 04/20/24 03:14
Glucose 87 mg/dl (70-99) 04/20/24 03:14
Vital Signs and I&O:
Vital Signs
Temp Pulse Resp BP Pulse Ox
98.6 F 80 15 105/60 94
04/20/24 06:00 04/20/24 07:12 04/20/24 07:00 04/20/24 07:00 04/20/24 07:17
Vital Signs
Temp Pulse Resp BP Pulse Ox
98.6 F 80 15 105/60 94
04/20/24 06:00 04/20/24 07:12 04/20/24 07:00 04/20/24 07:00 04/20/24 07:17
Intake & Output
04/17/24 04/18/24 04/19/24 04/20/24
07:59 07:59 07:59 07:59
Intake Total 1524.4 / 1524.4
Output Total 2074 1600 / 1600
Balance -2062 / -2063 -75.6 / -75.6
Physical Exam
Physical Exam
GEN: No distress, awake, alert, oriented x3. on supp O2
HEENT: supple, anicteric, mmm, eomi
LUNGS: Decreased BS B/L, no wheezes
CV: Reg, S1/S2, no murmur
ABD: soft, NT/ND
EXT: No cyanosis, clubbing, edema
NEURO: Gross non-focal
SKIN: Warm, pink, dry. No rash. Sternotomy incision c/d/i.
[2024-04-20 08:03] LABS: Glucose - Point of Care 97 mg/dl (70-99)
--- NOTE | 2024-04-20 08:12 | PTCARENOTE ---
Patient received from shift leader resting in bed, AAO x 3, states pain better controlled after recent pain medication. NSR w/BBB via cm, SaO2 @ 94% on 2lnc. RIJ Cordis present, CVP transduced. L radial arterial line - leveled, flushed, and
calibrated w/good waveforms returned. Epicardial V-wire tied to pulse generator. Mediastinal chest tubes x 2, L pleural chest tube, to separate pleuravac, no air leaks noted. Chaudhari catheter to gravity. All procedural sites stable. Dr. Hi and CT
team to bedside, patient and family updated to plan of care for the day, in agreement. See work list for full assessment and interventions performed.
--- NOTE | 2024-04-20 08:20 | W.PN.INTV ---
Today's Communication / Plan
Recommendations
Up OOB as tolerated
Wean down supplemental O2 as tolerated while keeping SpO2 >90%
If SaO2 is <96% on room air at rest then check ambulatory pulse oximetry prior to discharge
Cardiac rehab consult
Removal of mediastinal chest tubes per CT surgery team
Continue insulin drip with goal BG 140�180
Continue CVICU status until off insulin drip. Once he is weaned off insulin and transferred to CVICU�telemetry status, then we will sign off at that time.
Assessment
-
Assessment: 78-year-old male with a past medical history of PUD who presented with chest pain. Pain was worse with activity and better with rest. Initial echo showed preserved biventricular function with no significant valvular heart disease.
Left heart catheterization on 04/14/2024 showed multivessel CAD with 50% ostial and extensive atherosclerotic disease involving the mid LAD and diagonal branch. Chronic subtotal occlusion of the mid RCA with a distal RCA filling via right to right
collaterals from an RV marginal branch. Moderate coronary disease at the origin of small to medium caliber OM1 and in the midportion of OM3. Spirometry performed 04/19/2024 showed a mild obstructive lung defect with FEV1/FVC: 61/80% predicted with
FEV1: 2.41 L/102%. Cardiothoracic surgery consulted and patient agreed to surgical revascularization. On 04/19/2024, he underwent a CABG x 4 with a left atrial appendage exclusion with a 35mm clip. There were no immediate complications and patient
was transferred to the CVICU in stable condition with implement mechanic services consulted for additional management/recommendations.
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
Impression:
#Multivessel CAD s/p CABG x 4 with left atrial appendage exclusion with 35mm clip (POD #1)
#NSTEMI
#Thrombocytopenia likely due to surgical revascularization - platelet count now normalized
#History of hypertension
#History of tobacco use disorder
#Suspected COPD with a mild obstructive lung defect seen on spirometry from 04/19/2024
Plan:
Patient successfully extubated on 04/20/2024, and is now currently on 2 L/min nasal cannula saturating 95%
Maintain SpO2 >90-94%
prn nebulized bronchodilators - not currently bronchospastic
Recommend outpatient PFTs given his mild obstructive lung defect to assess for persistent obstruction/COPD - outpatient pulmonary evaluation will be arranged
Pressors/antihypertensive/inotropes/diuretics will be provided as needed
Maintain MAP>65
Replete electrolytes with K>4, Mg>2
Monitor chest tube output (mediastinal chest tubes x 2; (left pleural chest tube DC'd today)
Monitor hemoglobin
Monitor platelet count and coags
Transfuse blood products as needed to maintain Hb>7g/dL, plt>50k (given post-operative status)
CT surgery managing chest tubes
Monitor blood sugar to maintain euglycemia with goal BG 140-180
Insulin drip per protocol
Aspiration precautions
DVT prophylaxis
Early nutrition
Early mobilization
Continue CVICU status until off insulin drip. Once he is weaned off insulin and transferred to CVICU�telemetry status, then we will sign off at that time.
Critical care statement: A total of 41 minutes of critical care time was provided for this patient today. This includes management of ventilator, spontaneous breathing trial, arterial blood gases, pressors, of unstable vital signs, evaluation of the
patient at bedside, reviewing the patient's pertinent medical records including radiographs, microbiology, laboratory evaluations, and discussion with primary team and critical care nursing.
Subjective Dataa
Subjective Data
Date of Service:
Date of Service: April 20, 2024
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
Subjective:
Patient seen and evaluated today at bedside. Currently on 2 L/min. On insulin drip at 0.8 units/hr. Heart rate 98 and BP 1 3/6 7. Patient's daughter, Candice, and son, Garth, at bedside. All questions were answered. Patient denies chest pain, PATEL,
nausea, vomiting, fevers or chills.
Review of Systems
General: Other (Negative unless mentioned above)
Objective Data
Data Reviewed
Vital Signs / I&O / Oxygen:
Vital Signs
Temp Pulse Resp BP Pulse Ox
98.2 F 74 14 110/74 94
04/20/24 08:00 04/20/24 11:12 04/20/24 11:00 04/20/24 10:00 04/20/24 11:00
Intake and Output
04/19/24 04/20/24 04/21/24
06:59 06:59 06:59
Intake Total 1536.4 / 1536.4 96.8 / 96.8
Output Total 1949 / 2074 1725 / 172 155 / 155
Balance -1949 / -2062 -188.6 / -188.6 -58.2 / -58.2
SaO2 [SIMV] 98
SaO2 94
Nasal Cannula flow liters per 2
minute
Physical Exam
General: Respiratory Distress (negative), Comfortable and Chills (negative)
HEENT: Normocephalic and Anicteric
Cardiovascular: S1-S2, Rub and Peripheral Edema (negative)
Respiratory: Wheeze (negative), Crackles (negative), Rhonchi (negative) and Chest Tube (Mediastinal chest tubes x 2)
GI: Soft, Non Distended, Non Tender and Normal Bowel Sounds
Neurology: AO x 3 and Tremors (negative)
Skin: Warm, Dry, Cyanosis (negative) and Jaundice (negative)
Labs/Micro/Reports
Lab Data
04/20/24 03:14
04/20/24 03:14
Laboratory Results
04/19/24 04/19/24 04/19/24
15:12 18:43 23:04
PT 17.7 H
INR 1.43
APTT 35.7 H
pH 7.38 7.34 L 7.37
pCO2 41 44 43
pO2 110 H 113 H 112 H
HCO3 24.3 23.7 24.9
O2 Delivery Level Fio2 40%
04/20/24 04/20/24
00:34 05:56
PT
INR
APTT
pH 7.35 7.35
pCO2 41 38
pO2 97 79 L
HCO3 22.6 21.0
O2 Delivery Level Cpap 2l nc
--- NOTE | 2024-04-20 08:52 | W.PN.URO.CBU ---
Today's Communication / Plan
-
Hematuria resolved
Can give tamsulosin tonight if okay from cardiac standpoint
Garcia removal tomorrow AM, per primary service
Assessment / Plan
-
78M with BPH, remote hx of TURP, with prostatomegaly
Gross hematuria following garcia placement before scheduled CABG
- Hematuria resolved today
- Patient notes some difficulty voiding when lying flat but otherwise no baseline urinary difficulty - consider keeping garcia today until more ambulatory and able to stand to void
- If BP can tolerate, he can have a dose of tamsulosin 0.4mg tonight prior to catheter removal tomorrow AM
Diagnosis
-
Date of Service: April 20, 2024
-
Patient Diagnosis:
Hematuria
BPH
Catheter trauma
Post Op Day:
Subjective
-
Feeling well post op
Hematuria resolved
Objective
-
Vital Signs
Temp Pulse Resp BP Pulse Ox
98.2 F 80 17 108/79 92
04/20/24 08:00 04/20/24 08:04 04/20/24 08:00 04/20/24 08:00 04/20/24 08:04
Intake and Output
04/19/24 04/20/24 04/21/24
06:59 06:59 06:59
Intake Total 1536.4 / 1536.4 24.8 / 24.8
Output Total 1949 1725 / 1725 60 / 60
Balance -1949 / -2062 -188.6 / -188.6 -35.2 / -35.2
Intake:
IV fluids (Total) 1336.4 / 1336.4 24.8 / 24.8
Cordis 150 / 150 10 / 10
LR 750 / 750
Levophed 217.8 / 217.8 3.8 / 3.8
Precedex 7.4 / 7.4
VIP KVO 150 / 150
heparin 36 / 36
insulin 25.2 / 25.2
IV piggybacks 200 / 200
Output:
CT Output (Total) 35 / 35 0 / 0
Left Pleural 35 / 35 0 / 0
Multi-Chest Tube to Single 145 / 145
Drain Output
Mediastinal x2 145 / 145
Urine, Garcia 1949 1545 / 1545 50 / 50
Laboratory Results
04/20/24 03:14
04/20/24 03:14
Physical Exam
-
General - well developed, well nourished, no acute distress
Chest - chest tubes, O2
Abdomen - soft, non-tender
Garcia in place, clear yellow urine
[2024-04-20] MEDS: BACTROBAN 2% OINTMENT 1 APPLIC NASAL ×2 (09:04→21:06)
[2024-04-20] MEDS: LOW STRENGTH ASPIRIN 81 MG PO (09:05)
[2024-04-20] MEDS: NEURONTIN 100 MG PO ×3 (09:05→21:06)
[2024-04-20] MEDS: LIDOCAINE 4% PATCH 1 PATCH TOPICAL (09:05)
--- NOTE | 2024-04-20 09:05 | W.PN.ANS.POP ---
Anesthesia Post Operative
- Anesthesia Post Op Note
Vital Signs Stable-See Nursing Note: Yes
Airway Patent: Yes
Adequate Pain Control: Yes
Change in Mental Status: No
Current Postoperative Nausea & Vomiting: No
Anesthesia Complications: No
General Anesthetic Recall: No
Unplanned Admission: No
Post Op Hydration Adequate: Yes
[2024-04-20] MEDS: LOPRESSOR PO (09:06)
[2024-04-20] MEDS: PROTONIX 40 MG PO (09:06)
[2024-04-20] MEDS: SENOKOT-S 1 TABLET PO ×2 (09:06→21:06)
[2024-04-20] MEDS: MAGNESIUM OXIDE 500 MG PO ×2 (09:06→21:06)
[2024-04-20] MEDS: PLAVIX 75 MG PO (09:06)
[2024-04-20] MEDS: THERAGRAN 1 TABLET PO (09:06)
[2024-04-20] MEDS: PACERONE 200 MG PO ×2 (09:06→16:10)
[2024-04-20 09:55] LABS: Glucose - Point of Care 102 mg/dl (70-99)
--- NOTE | 2024-04-20 11:00 | CM ---
Reviewed chart. Met with Mr. Cervantes and his family to review discharge plans. He states he is feeling okay. He states prior to admission he resides alone in a third floor walk-up apartment. He states he has three flight of steps to get to his
apartment. He states prior to admission he was independent with ambulation and adls. He states he does not have any DME in the home. He currently does not have a prescription plan. He states he is planning on staying daughterCandice at [address]
[place], [place] He states her home is a one story home without any steps to enter. We reviewed a home visit by the Transitional Care Nurse. He is agreeable to a home visit. Medical work-up in progress. The discharge plan is to go
to his daughters home with a home visit by the Transitional Care Nurse when medically stable.
[2024-04-20] MEDS: FLOMAX 0.8 MG PO (11:33)
--- NOTE | 2024-04-20 11:43 | PTCARENOTE ---
VS obtained, stable. L pleural chest tube d/c'd as ordered. Patient assisted oob to chair x 2 assist. Family to bedside. Tolerated well.
[2024-04-20 12:10] LABS: Glucose - Point of Care 87 mg/dl (70-99)
[2024-04-20] MEDS: NSS IV (12:47)
[2024-04-20 13:13] LABS: Blood Urea Nitrogen 30 mg/dl (9-20); Calcium 8.8 mg/dl (8.4-10.2); Carbon Dioxide 25 mmol/L (22-30); Chloride 103 mmol/L (98-107); Estimated Creatinine Clearance 33 ml/min; Glucose 86 mg/dl (70-99); Potassium 4.1 mmol/L (3.5-5.1); Sodium 136 mmol/L (135-145); eGFR 47.06
[2024-04-20] MEDS: FERRLECIT 110 MG IV (13:37)
[2024-04-20 14:00] LABS: Glucose - Point of Care 110 mg/dl (70-99)
[2024-04-20] MEDS: LR 250 IV (14:17)
--- NOTE | 2024-04-20 16:15 | PTCARENOTE ---
VS obtained, assessment stable. Family at bedside for visit.
[2024-04-20 16:19] LABS: Glucose - Point of Care 137 mg/dl (70-99)
[2024-04-20] MEDS: LIPITOR 80 MG PO (17:53)
[2024-04-20] MEDS: LOPRESSOR 12.5 MG PO (21:05)
--- NOTE | 2024-04-20 21:15 | PTCARENOTE ---
Assumed care of pt from dayshift RN. Walking rounds completed. Pt repositioned in bed. SR on the tele monitor. HR 80s. Temporary epicardial v-wire insulated. BP 90-100s/50-60s. Palpable pulses throughout. Trace edema. Pt 92-96% on 4 L NC.
Mediastinal CTx2 to -20 suction, no airleak noted at this time, and output WNL. Lung sounds diminished B/L. Deep breathing and IS encouraged. Occasional productive cough. Abdomen round. Hypoactive BS. Pt voiding spontaneously. All surgical sites
stable. Right IJ cordis and PIVx2 C/D/I. No c/o pain at this time. See worklist for full nursing assessment and interventions. Confirmed administration of 12.5mg Lopressor w/ CTPA - okay to give - see MAR. Call melo within reach.
[2024-04-20] MEDS: PACERONE PO (22:25)
[2024-04-21] VITALS (31 sets, daily range): BP systolic 81–113; BP diastolic 44–86; PULSE 78–86; O2SAT 91–97; BMI 29.0
--- NOTE | 2024-04-21 00:45 | PTCARENOTE ---
Pt reassessed. Remains SR on the tele monitor. HR 60s. BP 80-90s/50s. Pt 95% on 4 L NC. Mediastinal CTx2 assessment unchanged. Pt voiding in the urinal. Pt repositioned in bed. All surgical sites stable. Call melo within reach.
[2024-04-21] MEDS: ROXICODONE 2.5 MG PO ×3 (02:38→16:39)
--- NOTE | 2024-04-21 03:28 | W.PN.CT ---
Today's Communication / Plan
-
pod#2
- DC temporary wires and mediastinal chest tube
- DC Ferric gluconate as Hb 13.9
- ASA, Plavix, statin, beta-chato
- continue Midodrine
- creat 1.9>LR 500cc bolus
Assessment / Plan
-
- NSTEMI with mv-CAD- s/p CABG x 4 (In situ NAIR to LAD, Ao to RSVG to OM1, Ao to RSVG to RPDA seq to OM3); Left atrial appendage exclusion [35 mm clip] on 04/19/24, pod #2
- Intraop ANNIE: LVEF was 60% with no significant regional wall motion abnormalities. Following surgery, his EF remained the same at 60%, perhaps mildly hyperdynamic to 65% with no new regional wma. His left atrial appendage was verified to be free
of any thrombus or debris preoperatively and found to be totally occlusive postoperatively with a 35 mm device (AtriCure, serial #[id number]).
- Prior PCI with stenting
- Hypertension
- Hyperlipidemia
- Tobacco abuse currently
- RBBB, LAFB preop
- COPD
- Left heart catheter this admission
- BPH status post TURP
- Hematuria, iatrogenic - resolved, Chaudhari irrigated by Urology preop
- Acute postop atelectasis
- Acute postop hypovolemia with subsequent hypervolemia
Discussed patient care with: Cardiology and Nursing
Subjective
Procedure
CABG x 4 NAIR-LAD, SVG-OM1, SVG-OM3 & RPDA, left atrial appendage exclusion #35mm clip by Dr. Raymond Hi-pod#2
- offers no complaints
-
Date of Service: April 21, 2024
Objective Data
-
PT 17.7 Sec (11.4-14.6) H 04/19/24 15:12
INR 1.43 04/19/24 15:12
APTT 35.7 Sec (23.4-35.0) H 04/19/24 15:12
Vital Signs
Vital Signs
Temp Pulse Resp BP Pulse Ox
98.3 F 72 16 105/63 93
04/21/24 00:05 04/21/24 02:30 04/21/24 00:05 04/21/24 01:55 04/21/24 02:30
CT Intake/Output/Weight
04/20/24 04/20/24 04/21/24
06:59 18:59 06:59
Intake Total 806.0 / 1536.4 671.2 / 721.2 50 / 721.2
Output Total 745 / 1725 385 / 665 280 / 665
Balance 61.0 / -188.6 286.2 / 56.2 -230 / 56.2
SaO2: 93
Physical Exam
-
General: AOx3
Cardiovascular: Regular rate & rhythm
Respiratory: Clear
Sternum: Stable
Incision: Clean, Dry and Intact
Extremities: No Edema
Data Reviewed
-
Lab Results: Results Reviewed
Medications: Active Meds Reviewed
Chest X-Ray: Image Reviewed
ECG: Image Reviewed
--- NOTE | 2024-04-21 04:32 | PTCARENOTE ---
Pt reassessed. SR on the tele monitor. HR 70s. BP on soft - see VS. Pt is 92% on [address] assessment unchanged. All surgical sites stable. Pt assisted to sit at side of bed per pt request. BP dropped to systolics in the 80s. Pt states minor
dizziness that resolved. Pt repositioned back into bed. Labs sent. Call melo within reach.
[2024-04-21 04:46] LABS: Blood Urea Nitrogen 45 mg/dl (9-20); Calcium 8.2 mg/dl (8.4-10.2); Carbon Dioxide 26 mmol/L (22-30); Chloride 101 mmol/L (98-107); Estimated Creatinine Clearance 26 ml/min; Glucose 116 mg/dl (70-99); Magnesium 2.5 mg/dl (1.6-2.3); Potassium 4.3 mmol/L (3.5-5.1); Sodium 132 mmol/L (135-145); eGFR 35.44
[2024-04-21 05:06] LABS: Hematocrit 31.4 % (39.0-52.0); Hemoglobin 10.9 g/dL (13.0-18.0); Mean Corp Hgb Conc. 34.7 g/dL (33.0-37.0); Mean Corpuscular Volume 97.8 fL (80.0-94.0); Mean Platelet Volume 12.4 fL (7.4-10.4); Platelet Count 132 10^3/uL (130-400); Red Blood Cell Count 3.21 10^6/uL (4.70-6.10); Red Cell Dist. Width 13.5 % (11.5-14.5); White Blood Cell Count 17.7 10^3/uL (4.8-10.8)
[2024-04-21] MEDS: TYLENOL 1000 MG PO ×3 (05:13→21:13)
[2024-04-21] MEDS: LR 500 IV (05:54)
--- NOTE | 2024-04-21 08:00 | PTCARENOTE ---
Patient recieved from RN @0700. Sitting in chair comfortably w/ call melo in reach. AOx3. NSR V-wires insulated. Heart sounds distant. BP low and ordered to hold metoprolol. BP 93/56 HR 70. Trace edema bilateral on legs. 2 mediastinal chest
tubes set to -20 w/ no crepitus and tidaling. CT draining serosanguineous fluid WNL. Lungs diminished bilaterally. IS 1750. POX 95% 2L NC. Voiding clear yellow urine in urinal. No BM. RIJ cordis and 2x left PIV patent and intact. Sternal
incision open to air dry and intact. Chest tube dressing dry and intact. Right groin puncture dry and intact open to air. Right leg incisions dry and intact.
[2024-04-21] MEDS: LOW STRENGTH ASPIRIN 81 MG PO (08:16)
[2024-04-21] MEDS: FLOMAX 0.4 MG PO (08:17)
[2024-04-21] MEDS: PROTONIX 40 MG PO (08:17)
[2024-04-21] MEDS: THERAGRAN 1 TABLET PO (08:17)
[2024-04-21] MEDS: PLAVIX 75 MG PO (08:17)
[2024-04-21] MEDS: NEURONTIN 100 MG PO ×3 (08:17→21:13)
[2024-04-21] MEDS: SENOKOT-S 1 TABLET PO ×2 (08:17→19:58)
[2024-04-21] MEDS: BACTROBAN 2% OINTMENT 1 APPLIC NASAL ×2 (08:18→19:59)
[2024-04-21] MEDS: LIDOCAINE 4% PATCH TOPICAL (08:21)
[2024-04-21] MEDS: MAGNESIUM OXIDE 500 MG PO (08:21)
--- NOTE | 2024-04-21 08:45 | PTCARENOTE ---
V-wires pulled by CT PA Pat.
--- NOTE | 2024-04-21 10:00 | PTCARENOTE ---
Scant amount of chest tube drainage. Ordered to pull chest tubes. Patient complains of shivering and is a recent smoker. Nicotine patch administered per CT OLE Lamb.
[2024-04-21] MEDS: NICODERM TRANSDERMAL 7 MG TRANSDERM (10:06)
--- NOTE | 2024-04-21 11:30 | W.PN.CARDCBS ---
Addendum entered and electronically signed by Nya Gomes DO 04/21/24 13:02:
I saw and examined the patient.
The Post Exchange Manager's note was reviewed and I agree with the note.
Comment: Patient seen in the sitting out of bed to chair. He had just worked with PT and had chest tubes removed and was feeling a little lightheaded. He reports poor sleep overnight. No chest pain suggestive of angina but does overall chest
soreness. He believes the lightheadedness became worse after nicotine patch was placed and would like to have it removed.
General: Awake alert and oriented, in no acute distress sitting in bed to bed to chair and requesting to get back in bed; notified nursing. Will also have nicotine patch removed
Heart: Regular, positive S1/S2, No murmur
Lungs: Bronchovesicular breath sounds decreased but clear
Abd: Positive BS, NT/ND, neg rebound/rigidity/guarding
Ext: Negative cyanosis/clubbing/edema
Neuro: nonfocal
Plan:
-Status post CABG x 4 (in situ NAIR to LAD, ao to RSVG to OM1, ao to RSVG to RPDA sequential to OM 3), LAKSHMI clip 04/19/24. POD#2.
-Doing well. Leukocytosis improving, down to 17.7K, possibly reactive.
-No longer on pressors, BP stable. Does note some dizziness, but reports it was worse after nicotine patch placed. Will remove and follow symptoms.
-No arrhythmias noted on tele, remains in SR.
-Hgb down to 10.9. No blood products given. Continue to follow.
-Creat up to 1.9. Continue to follow follow bolus of LR. Repeat labs pending this afternoon.
-Continue aspirin and plavix
-Continue high intensity statin.
-Continue post op care.
Original Note:
Today's Communication / Plan
-
Remove nicotine patch and follow dizziness
Continue aspirin, plavix
Follow repeat labs
Continue post op care
Impression / Plan
-
Cardiology: Previously seen by Dr. Mata Santoro, 2020
Primary care: None
Assessment:
Presented with chest pain
NSTEMI with peak trop 0.265
MV CAD by cath 04/18/24
s/p CABG x 4 (in situ NAIR to LAD, ao to RSVG to OM1, ao to RSVG to RPDA sequential to OM 3), LAKSHMI clip 04/19/24
Hematuria
Tobacco use disorder, continuous
Hypertension
COPD
Right bundle branch block, LAFB
Dyslipidemia
Common iliac artery aneurysm, mild
Abdominal aortic aneurysm, mild, 2.7 cm
Nephrocalcinosis
Cholelithiasis
Degenerative disc disease
History of BPH status post TURP
CT chest abdomen pelvis angio with and without contrast 04/16/2024: Severe calcific atherosclerotic plaque in the coronary arteries, moderate calcific atherosclerotic plaque and tortuosity of the descending thoracic aorta, mild interstitial pulmonary
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
moderate bilateral medullary nephrocalcinosis with small subcentimeter nonobstructing bilateral intrarenal calculi, cholelithiasis mild GB wall thickening, small hiatal hernia, severe discogenic degenerative disease L5/S1, severe bilateral facet
joint arthrosis at L4-L5 with associated grade 1 anterolisthesis
ECHO 04/18/24: EF 55 to 60%, mild MR, trivial AI
Plan:
-Status post CABG x 4 (in situ NAIR to LAD, ao to RSVG to OM1, ao to RSVG to RPDA sequential to OM 3), LAKSHMI clip 04/19/24. POD#2.
-Doing well. Leukocytosis improving, down to 17.7K, possibly reactive.
-No longer on pressors, BP stable. Does note some dizziness, but reports it was worse after nicotine patch placed. Will remove and follow symptoms.
-No arrhythmias noted on tele, remains in SR.
-Hgb down to 10.9. No blood products given. Continue to follow.
-Creat up to 1.9. Continue to follow follow bolus of LR. Repeat labs pending this afternoon.
-Continue aspirin and plavix
-Continue high intensity statin.
-Continue post op care.
PREADMIT DATA: Patient presented with chest pain. Ruled in for NSTEMI with peak troponin of 0.265. Underwent cardiac catheterization 04/14/2024 which showed multivessel CAD and CT surgery consulted. Preop echocardiogram with preserved EF and
minimal mitral valve disease
Progress Note - Plastics Fitter
Subjective
Date of Service: April 21, 2024
Dizziness noted, possibly worse after nicotine patch placement.
Objective
Labs:
04/21/24 03:53
Labs
Hgb 10.9 g/dL (13.0-18.0) L D 04/21/24 03:53
Hct 31.4 % (39.0-52.0) L 04/21/24 03:53
Plt Count 132 10^3/uL (130-400) D 04/21/24 03:53
PT 17.7 Sec (11.4-14.6) H 04/19/24 15:12
INR 1.43 04/19/24 15:12
APTT 35.7 Sec (23.4-35.0) H 04/19/24 15:12
Sodium 132 mmol/L (135-145) L 04/21/24 03:53
Potassium 4.3 mmol/L (3.5-5.1) 04/21/24 03:53
BUN 45 mg/dl (9-20) H 04/21/24 03:53
Creatinine 1.9 mg/dL (0.7-1.3) H 04/21/24 03:53
Glucose 116 mg/dl (70-99) H 04/21/24 03:53
Vital Signs and I&O:
Vital Signs
Temp Pulse Resp BP Pulse Ox
98.2 F 70 18 93/56 95
04/21/24 08:00 04/21/24 08:00 04/21/24 08:00 04/21/24 08:00 04/21/24 08:00
Vital Signs
Temp Pulse Resp BP Pulse Ox
98.2 F 70 18 93/56 95
04/21/24 08:00 04/21/24 08:00 04/21/24 08:00 04/21/24 08:00 04/21/24 08:00
Intake & Output
04/19/24 04/20/24 04/21/24 04/22/24
06:59 06:59 06:59 06:59
Intake Total 1536.4 / 1536.4 761.2 / 791.2 40 / 40
Output Total 1949 1725 / 1724 870 / 870 190 / 190
Balance -1949 / -2062 -188.6 / -188.6 -108.8 / -78.8 -150 / -150
Physical Exam
Physical Exam
GEN: No distress, awake, alert, oriented x3
HEENT: supple, anicteric, mmm, eomi
LUNGS: Decreased BS B/L, no wheezes
CV: Reg, S1/S2, no murmur
EXT: No cyanosis, clubbing, edema
NEURO: Gross non-focal
SKIN: Warm, pink, dry. No rash. Sternotomy incision c/d/i.
--- NOTE | 2024-04-21 12:30 | PTCARENOTE ---
Patient reassessed. No significant changes. NSR BP 101/66 HR 77 POX 95 4L NC. Tolerated working with PT and cardiac rehab. Currently resting in bed w/ call melo in reach. Patient complaining of pain. Gave 2.5mg Isabela see MAR for details.
--- NOTE | 2024-04-21 14:00 | CM ---
Reviewed chart. Met with Mr. Cervantes to review discharge plans. He states he is feeling tired today. He states he ambulated today. Prior to admission he resides alone in a third floor walk-up apartment. Prior to admission he was independent with
ambulation and adls. He does not have any DME in the home. He is planning on staying at his daughters home when ready for discharge . Medical work-up in progress. The discharge plan is to go to his daughter's home with a home visit by the
Transitional Care Nurse when medically stable.
[2024-04-21 15:30] LABS: Blood Urea Nitrogen 45 mg/dl (9-20); Calcium 8.1 mg/dl (8.4-10.2); Carbon Dioxide 26 mmol/L (22-30); Chloride 100 mmol/L (98-107); Estimated Creatinine Clearance 31 ml/min; Glucose 148 mg/dl (70-99); Potassium 3.9 mmol/L (3.5-5.1); Sodium 132 mmol/L (135-145); eGFR 43.56
[2024-04-21] MEDS: NSS 500 IV (16:00)
[2024-04-21] MEDS: LASIX 40 MG IV (16:02)
[2024-04-21] MEDS: KCL 20 MEQ PO (16:39)
[2024-04-21] MEDS: LIPITOR 80 MG PO (18:08)
[2024-04-21] MEDS: MAGNESIUM OXIDE PO (19:58)
--- NOTE | 2024-04-21 21:00 | PTCARENOTE ---
Assumed care of patient from dayshift RN. Walking rounds completed. Pt AAOx3. SR on the tele monitor. HR 70-80s. BP stable. Palpable pulses throughout. Generalized edema. Afebrile. Pt 95% on 2 L NC. Occasional productive cough. Lung sounds
diminished B/L. Deep breathing and IS encouraged. Abdomen round. +BS. Pt voiding spontaneously. Clear/yellow. All surgical sites stable. Pt repositioned in bed. Right IJ cordis and L PIVx2 intact. See worklist for full nursing assessment and
interventions. Call melo within reach.
[2024-04-22] VITALS (20 sets, daily range): BP systolic 85–118; BP diastolic 55–70; PULSE 80; O2SAT 91; BMI 29.2
--- NOTE | 2024-04-22 00:21 | PTCARENOTE ---
Assessment unchanged. Pt SR on the tele monitor. HR 70s. BP stable. Pt 95% on 2 L NC. All surgical sites stable. Pt resting in bed at this time. Voiding in the urinal ad ricky. Call melo within reach.
[2024-04-22] MEDS: ROXICODONE 5 MG PO (03:00)
[2024-04-22 03:23] LABS: Hemoglobin 10.4 g/dL (13.0-18.0); Mean Corp Hgb Conc. 34.7 g/dL (33.0-37.0); Mean Corpuscular Hgb 33.7 pg (27.0-31.0); Mean Corpuscular Volume 97.1 fL (80.0-94.0); Mean Platelet Volume 11.8 fL (7.4-10.4); Platelet Count 138 10^3/uL (130-400); Red Blood Cell Count 3.09 10^6/uL (4.70-6.10); Red Cell Dist. Width 13.5 % (11.5-14.5); White Blood Cell Count 14.7 10^3/uL (4.8-10.8)
--- NOTE | 2024-04-22 03:23 | PTCARENOTE ---
Pt reassessed. No change in assessment. Pt SR on the tele monitor. HR 70s. BP stable. Pt uncomfortable in bed. Pt assisted to sit at edge of bed. Weight obtained. Labs drawn and sent. See MAR for pain medication administration. All surgical sites
stable. Call melo within reach.
[2024-04-22 03:41] LABS: Blood Urea Nitrogen 44 mg/dl (9-20); Calcium 8.2 mg/dl (8.4-10.2); Carbon Dioxide 28 mmol/L (22-30); Chloride 98 mmol/L (98-107); Estimated Creatinine Clearance 37 ml/min; Glucose 109 mg/dl (70-99); Magnesium 2.4 mg/dl (1.6-2.3); Potassium 4.1 mmol/L (3.5-5.1); Sodium 132 mmol/L (135-145); eGFR 47.06
[2024-04-22] MEDS: TYLENOL 1000 MG PO ×3 (05:55→22:33)
--- NOTE | 2024-04-22 07:27 | W.PN.CT ---
Documented by User: Isabel Aggarwal PA-C 04/22/24 07:36
Today's Communication / Plan
-
-pod #3
-no issues overnight
-Cr improving - 1.5 today (1.9 peak on 04/21, preop 1.1-1.4)
-diuresed with 40 iv Lasix yesterday - continue
-wean off O2 as tolerated (pOx 96% on 2L)
-encourage IS, OOB, ambulate
Assessment / Plan
-
- NSTEMI with mv-CAD- s/p CABG x 4 (In situ NAIR to LAD, Ao to RSVG to OM1, Ao to RSVG to RPDA seq to OM3); Left atrial appendage exclusion [35 mm clip] on 04/19/24, pod #3
- Intraop ANNIE: LVEF was 60% with no significant regional wall motion abnormalities. Following surgery, his EF remained the same at 60%, perhaps mildly hyperdynamic to 65% with no new regional wma. His left atrial appendage was verified to be free
of any thrombus or debris preoperatively and found to be totally occlusive postoperatively with a 35 mm device (AtriCure, serial #[id number]).
- Prior PCI with stenting
- Hypertension
- Hyperlipidemia
- Tobacco abuse currently
- RBBB, LAFB preop
- COPD
- Left heart catheter this admission
- BPH status post TURP
- Hematuria, iatrogenic - resolved, Chaudhari irrigated by Urology preop
- Acute postop atelectasis
- Acute postop hypovolemia with subsequent hypervolemia
Discussed patient care with: Nursing and Care Team
Subjective
Procedure
CABG x 4 NAIR-LAD, SVG-OM1, SVG-OM3 & RPDA, left atrial appendage exclusion #35mm clip by Dr. Raymond Hi-pod#2
- offers no complaints
-
Date of Service: April 22, 2024
Objective Data
-
Lab Results
04/22/24 03:06
04/22/24 03:06
PT 17.7 Sec (11.4-14.6) H 04/19/24 15:12
INR 1.43 04/19/24 15:12
APTT 35.7 Sec (23.4-35.0) H 04/19/24 15:12
Vital Signs
Vital Signs
Temp Pulse Resp BP Pulse Ox
98.5 F 80 16 100/60 96
04/22/24 02:52 04/22/24 06:00 04/22/24 02:52 04/22/24 05:50 04/22/24 02:52
CT Intake/Output/Weight
04/21/24 04/22/24 04/22/24
18:59 06:59 18:59
Intake Total 60 / 170 110 / 170
Output Total 390 / 1090 700 / 1090
Balance -330 / -920 -590 / -920
SaO2: 96
Physical Exam
-
General: Awake and AOx3
Cardiovascular: Regular rate & rhythm, No Murmurs and Rub
Respiratory: Decreased Breath Sounds
Sternum: Stable
Incision: Clean, Dry and Intact
Extremities: Other (trace edema b/l)
Abdomen: mildly distended, increased bowel sounds, soft, + flatus, no nausea
Data Reviewed
-
Lab Results: Results Reviewed
Medications: Active Meds Reviewed
Chest X-Ray: Report Reviewed and Image Reviewed
ECG: Report Reviewed and Image Reviewed

Documented by User: OpheliaLORA Banks 04/22/24 16:39
Assessment / Plan
-
- NSTEMI with mv-CAD- s/p CABG x 4 (In situ NAIR to LAD, Ao to RSVG to OM1, Ao to RSVG to RPDA seq to OM3); Left atrial appendage exclusion [35 mm clip] on 04/19/24, pod #3
- Intraop ANNIE: LVEF was 60% with no significant regional wall motion abnormalities. Following surgery, his EF remained the same at 60%, perhaps mildly hyperdynamic to 65% with no new regional wma. His left atrial appendage was verified to be free
of any thrombus or debris preoperatively and found to be totally occlusive postoperatively with a 35 mm device (AtriCure, serial #[id number]).
- Prior PCI with stenting
- Hypertension
- Hyperlipidemia
- Tobacco abuse currently
- RBBB, LAFB preop
- COPD
- Left heart catheter this admission
- BPH status post TURP
- Hematuria, iatrogenic - resolved, Chaudhari irrigated by Urology preop
- Acute postop atelectasis
- Acute postop hypovolemia with subsequent hypervolemia
-Acute blood loss anemia
[2024-04-22] MEDS: NEURONTIN 100 MG PO ×3 (07:46→22:33)
[2024-04-22] MEDS: THERAGRAN 1 TABLET PO (07:46)
[2024-04-22] MEDS: SENOKOT-S 1 TABLET PO (07:46)
[2024-04-22] MEDS: FLOMAX 0.4 MG PO (07:46)
[2024-04-22] MEDS: PROTONIX 40 MG PO (07:46)
[2024-04-22] MEDS: ROXICODONE 2.5 MG PO (07:46)
[2024-04-22] MEDS: PLAVIX 75 MG PO (07:46)
[2024-04-22] MEDS: LOW STRENGTH ASPIRIN 81 MG PO (07:46)
[2024-04-22] MEDS: LIDOCAINE 4% PATCH 1 PATCH TOPICAL (07:47)
[2024-04-22] MEDS: BACTROBAN 2% OINTMENT 1 APPLIC NASAL ×2 (07:48→20:50)
[2024-04-22] MEDS: NICODERM TRANSDERMAL TRANSDERM (08:11)
[2024-04-22] MEDS: MAGNESIUM OXIDE PO (08:11)
[2024-04-22] MEDS: LASIX 40 MG IV (08:41)
--- NOTE | 2024-04-22 09:11 | W.PN.CARDCBS ---
Addendum entered and electronically signed by Augustus Rich MD 04/22/24 10:43:
I saw and examined the patient.
The Rn Invasive's note was reviewed and I agree with the note.
Comment: Briefly, 78-year-old man presenting with chest discomfort and elevated troponin consistent with NSTEMI found to have multivessel CAD for which he underwent CABG x 4 on 04/19/2024
He is recovering well postoperatively, resting comfortably in the CVICU
No cardiac complaints
Appears euvolemic on exam
Maintaining sinus rhythm on telemetry
Agree with medical management�aspirin/Plavix/high intensity statin/beta-chato
Stable cardiac status
We will arrange outpatient follow-up
Original Note:
Today's Communication / Plan
-
Continue post op care
Impression / Plan
-
Cardiology: Previously seen by Dr. Mata Santoro, 2020
Primary care: None
Assessment:
Presented with chest pain
NSTEMI with peak trop 0.265
MV CAD by cath 04/18/24
s/p CABG x 4 (in situ NAIR to LAD, ao to RSVG to OM1, ao to RSVG to RPDA sequential to OM 3), LAKSHMI clip 04/19/24
Hematuria
Tobacco use disorder, continuous
Hypertension
COPD
Right bundle branch block, LAFB
Dyslipidemia
Common iliac artery aneurysm, mild
Abdominal aortic aneurysm, mild, 2.7 cm
Nephrocalcinosis
Cholelithiasis
Degenerative disc disease
History of BPH status post TURP
CT chest abdomen pelvis angio with and without contrast 04/16/2024: Severe calcific atherosclerotic plaque in the coronary arteries, moderate calcific atherosclerotic plaque and tortuosity of the descending thoracic aorta, mild interstitial pulmonary
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
moderate bilateral medullary nephrocalcinosis with small subcentimeter nonobstructing bilateral intrarenal calculi, cholelithiasis mild GB wall thickening, small hiatal hernia, severe discogenic degenerative disease L5/S1, severe bilateral facet
joint arthrosis at L4-L5 with associated grade 1 anterolisthesis
ECHO 04/18/24: EF 55 to 60%, mild MR, trivial AI
Plan:
-Status post CABG x 4 (in situ NAIR to LAD, ao to RSVG to OM1, ao to RSVG to RPDA sequential to OM 3), LAKSHMI clip 04/19/24. POD#2.
-Doing well. No SOB. Does note some lightheadedness w/ position change, but improving. Ambulated yesterday without difficulty.
-BP stable, but did have some hypotension overnight.
-No arrhythmias noted on tele, remains in SR.
-Hgb down to 10.4. Continue to follow.
-Creat improving, down to 1.5 04/22. Continue to follow. 40mg IV lasix given this AM. Weight stable overnight at 169lbs.
-Continue aspirin and plavix
-Continue high intensity statin.
-Continue post op care.
PREADMIT DATA: Patient presented with chest pain. Ruled in for NSTEMI with peak troponin of 0.265. Underwent cardiac catheterization 04/14/2024 which showed multivessel CAD and CT surgery consulted. Preop echocardiogram with preserved EF and
minimal mitral valve disease
Progress Note - Resort Host
Subjective
Date of Service: April 22, 2024
Feeling well. No SOB, but still does have some lightheadedness w/ position change.
Objective
Labs:
04/22/24 03:06
04/22/24 03:06
Labs
Hgb 10.4 g/dL (13.0-18.0) L 04/22/24 03:06
Hct 30.0 % (39.0-52.0) L 04/22/24 03:06
Plt Count 138 10^3/uL (130-400) 04/22/24 03:06
PT 17.7 Sec (11.4-14.6) H 04/19/24 15:12
INR 1.43 04/19/24 15:12
APTT 35.7 Sec (23.4-35.0) H 04/19/24 15:12
Sodium 132 mmol/L (135-145) L 04/22/24 03:06
Potassium 4.1 mmol/L (3.5-5.1) 04/22/24 03:06
BUN 44 mg/dl (9-20) H 04/22/24 03:06
Creatinine 1.5 mg/dL (0.7-1.3) H 04/22/24 03:06
Glucose 109 mg/dl (70-99) H 04/22/24 03:06
Vital Signs and I&O:
Vital Signs
Temp Pulse Resp BP Pulse Ox
98.1 F 73 22 113/67 93
04/22/24 08:00 04/22/24 08:41 04/22/24 08:00 04/22/24 08:41 04/22/24 08:56
Vital Signs
Temp Pulse Resp BP Pulse Ox
98.1 F 73 22 113/67 93
04/22/24 08:00 04/22/24 08:41 04/22/24 08:00 04/22/24 08:41 04/22/24 08:56
Intake & Output
04/20/24 04/21/24 04/22/24 04/23/24
06:59 06:59 06:59 06:59
Intake Total 1536.4 / 1536.4 761.2 / 791.2 170 / 170 360 / 360
Output Total 1725 / 1725 870 / 870 1090 / 1090 100 / 100
Balance -188.6 / -188.6 -108.8 / -78.8 -920 / -920 260 / 260
Physical Exam
Physical Exam
GEN: No distress, awake, alert, oriented x3
HEENT: supple, anicteric, mmm, eomi
LUNGS: Decreased breath sounds anterolaterally
CV: Reg, S1/S2, no murmur
EXT: No cyanosis, clubbing, edema
NEURO: Gross non-focal
SKIN: Warm, pink, dry. No rash. Sternotomy incision c/d/i.
--- NOTE | 2024-04-22 09:21 | PTCARENOTE ---
RIJ Cordis removed per CVNP order.
--- NOTE | 2024-04-22 09:30 | PTCARENOTE ---
Pt is AOx3, complaints of pain this AM given PRN medication as ordered. Assist x1 OOB. SR on tele monitor, VSS. RIJ cordis removed by [employer]. Family at bedside and updated. Call melo within reach.
[2024-04-22] MEDS: FLEXERIL 5 MG PO (11:01)
--- NOTE | 2024-04-22 12:06 | CM ---
Reviewed chart. Met with Mr. Cervantes and his daughter to review discharge plans. He states he is feeling okay. Daughter states she is still planning on having hime stay with her for his recovery. She states she is planning on having him on the
first floor. She is borrowing an easy lift chair to him to use and she is getting him a shower chair. She states they have family that will take turn staying with him. We reviewed a home visit by the Transitional Care Nurse and [facility] if
needed after that visit. Medial work-up in progress. The discharge plan is to go to his daughter's home with a home visit by the Transitional Care Nurse when medically stable.
[2024-04-22] MEDS: NSS IV (14:48)
--- NOTE | 2024-04-22 15:07 | PTCARENOTE ---
Received pt from previous RN; pt AAOx3 with family at bedside; NSR on monitor and VSS; PIV x2 patent; Lungs diminished; positive bowel sounds; pt voiding yellow urine; trace lower extremity edema noted; palpable pulses throughout; all surgical sites
C/D/I.
--- NOTE | 2024-04-22 16:26 | PN.CDI ---
CDI
- -
CDI:
Physician Documentation Request
Admit Date: 04/16/24 18:28
Dear Doctor Sussy,
Patient admitted with NSTEMI with mv-CAD- s/p CABG x 4 (In situ NAIR to LAD, Ao to RSVG to OM1, Ao to RSVG to RPDA seq to OM3); Left atrial appendage exclusion [35 mm clip] on 04/19/24.
Hgb levels documented below:
Laboratory Tests
04/16/24 04/17/24 04/19/24
13:17 05:21 18:43
Hgb 17.6 15.5 14.7
04/20/24 04/21/24 04/22/24
03:14 03:53 03:06
Hgb 13.9 10.9 L D 10.4 L
Based on the above, please clarify, in your progress note, which of the following is the most likely diagnosis you are evaluating, monitoring and/or treating?
Acute blood loss anemia
Insignificant abnormal lab findings
Other
Use of terms such as suspected, likely, concern for, or probable (associated with a specific diagnosis that is being evaluated, monitored, or treated as if it exists) are acceptable and can be coded in the inpatient setting, when documented at the
time of discharge.
Thank you,
Jennifer SPARKS,RN,CCDS
CDI Specialist
Available via [facility] text
Please use your independent medical judgment in providing your response.
[2024-04-22] MEDS: LIPITOR 80 MG PO (17:03)
--- NOTE | 2024-04-22 17:45 | PTCARENOTE ---
Pt in A-fib HR 140s; Amiodarone bolus ordered by CVNP.
[2024-04-22] MEDS: CORDARONE 103 MG IV ×2 (17:51→20:50)
[2024-04-22] MEDS: CORDARONE 518 MG IV (18:20)
[2024-04-22] MEDS: SENOKOT-S PO (20:50)
--- NOTE | 2024-04-22 21:00 | PTCARENOTE ---
Patient received resting in bed. Family at bedside. Patient A+A+Ox3. No neurological deficits noted. No c/o headache, dizziness or lightheadedness. O2 at 2 L via NC. SpO2 95%. No c/o SOB. Chest tube dressing intact. Atrial Fibrillation.
Heart rate 100's. Amiodarone Bolus ordered by Tayo HANDY PA-C, infusing without difficulty. No c/o chest pain, pressure or discomfort. Normoactive bowel sounds. Voiding. Positive, palpable pulses. Sternal incision intact - Surgical
adhesive. Right groin puncture intact. Right knee incision intact - Surgical adhesive. IV Amiodarone gtt infusing per protocol 1mg/min (33.3 ml/hr). Assessment as documented.
--- NOTE | 2024-04-22 21:20 | PTCARENOTE ---
Patient's radiographer cardiac catheterization displaying Sinus Rhythm. BBC. Occasional PAC. Heart rate 60's. Patient resting in bed. No c/o pain or discomfort. Assessment as documented.
[2024-04-22] MEDS: CALCIUM GLUCONATE 100 IV (22:27)
[2024-04-23] VITALS (15 sets, daily range): BP systolic 88–124; BP diastolic 51–76; PULSE 72; BMI 26.9
--- NOTE | 2024-04-23 00:30 | PTCARENOTE ---
Calcium Gluconate 2 gram/100ml over 1hr infused without difficulty per PA order. MAG and Amiodarone PO on Hold per PA order. Amiodarone gtt rate decreased to 0.5 mg/min (16.7 ml/hr) per protocol. Patient sleeping without difficulty.
Assessment/Interventions as documented.
--- NOTE | 2024-04-23 03:35 | W.PN.CT ---
Today's Communication / Plan
-
Plan:
-No major issues overnight. Hemodynamically and neurologically intact
-Unfortunately went into rapid a-fib yesterday and converted after ~ 4hrs. Currently on Amiodarone gtt. Received additional Amiodarone bolus x 2 yesterday
-Will likely require DOAC/NOAC if further a-fib
-[place] resolving, Cr 1.4 was 1.5 yesterday (1.9 peak on 04/21, preop 1.1-1.3)
-Switched Lopressor to Toprol XL given soft BP postop
-Cont. current meds (ASA, Plavix, Amiodarone, Toprol XL, Lipitor, Flomax)
-F/U 2-view cxr
-Wean off O2 (pOx 96% on 2L)
-Encourage use of IS
-OOB into chair
-D/C home likely tomorrow
Assessment / Plan
-
- NSTEMI with mv-CAD- s/p CABG x 4 (In situ NAIR to LAD, Ao to RSVG to OM1, Ao to RSVG to RPDA seq to OM3); Left atrial appendage exclusion [35 mm clip] on 04/19/24, pod #4
- Intraop ANNIE: LVEF was 60% with no significant regional wall motion abnormalities. Following surgery, his EF remained the same at 60%, perhaps mildly hyperdynamic to 65% with no new regional wma. His left atrial appendage was verified to be free
of any thrombus or debris preoperatively and found to be totally occlusive postoperatively with a 35 mm device (AtriCure, serial #[id number]).
- Prior PCI with stenting
- Hypertension
- Hyperlipidemia
- Tobacco abuse currently
- RBBB, LAFB preop
- COPD
- Left heart catheter this admission
- BPH status post TURP
- Hematuria, iatrogenic - resolved, Chaudhari irrigated by Urology preop
-Acute postop atelectasis
-Acute postop hypovolemia with subsequent hypervolemia
-Acute blood loss anemia
-Acute pulmonary insufficiency
-Acute postop hypermagnesemia
-Postop [place]
Discussed patient care with: Cardiology, Nursing, Respiratory Therapy, Pharmacy and Care Team
Subjective
Procedure
CABG x 4 NAIR-LAD, SVG-OM1, SVG-OM3 & RPDA, left atrial appendage exclusion #35mm clip by Dr. Raymond Hi-pod#2
- offers no complaints
-
Date of Service: April 23, 2024
Pt c/o mild incisional pain, otherwise feels well
Objective Data
-
PT 17.7 Sec (11.4-14.6) H 04/19/24 15:12
INR 1.43 04/19/24 15:12
APTT 35.7 Sec (23.4-35.0) H 04/19/24 15:12
Vital Signs
Vital Signs
Temp Pulse Resp BP Pulse Ox
98.7 F 60 16 99/56 96
04/22/24 23:00 04/23/24 01:30 04/22/24 23:00 04/23/24 01:13 04/23/24 01:30
CT Intake/Output/Weight
04/22/24 04/22/24 04/23/24
06:59 18:59 06:59
Intake Total 110 / 170 360 / 1016.5 656.5 / 1016.5
Output Total 700 / 1090 725 / 975 250 / 975
Balance -590 / -920 -365 / 41.5 406.5 / 41.5
SaO2: 96 (2L)
Physical Exam
-
General: Awake, Oriented and AOx3
Cardiovascular: Regular rate & rhythm, No Murmurs, No Rub and No Gallop
Respiratory: Decreased Breath Sounds (at bases, otherwise clear)
Sternum: Stable
Incision: Clean, Dry, Intact and Dressing Intact
Extremities: Other (+trace edema)
Data Reviewed
-
Lab Results: Results Reviewed
Medications: Active Meds Reviewed
Chest X-Ray: Report Reviewed and Image Reviewed
ECG: Report Reviewed and Image Reviewed
--- NOTE | 2024-04-23 05:30 | PTCARENOTE ---
Patient A+A+Ox3. No neurological deficits noted. AM lab work collected and sent. Patient given CHG bath and linens changed. Chest tube dressing changed. Patient assisted OOB to standing scale (75.7 kg) then to chair. No c/o dizziness or
lightheadedness. Assessment/Interventions as documented.
[2024-04-23] MEDS: TYLENOL 1000 MG PO ×2 (05:43→13:20)
[2024-04-23 06:15] LABS: Blood Urea Nitrogen 31 mg/dl (9-20); Calcium 8.4 mg/dl (8.4-10.2); Carbon Dioxide 31 mmol/L (22-30); Chloride 94 mmol/L (98-107); Estimated Creatinine Clearance 39 ml/min; Glucose 128 mg/dl (70-99); Magnesium 2.4 mg/dl (1.6-2.3); Sodium 132 mmol/L (135-145); eGFR 51.13
[2024-04-23 06:18] LABS: Hematocrit 34.2 % (39.0-52.0); Hemoglobin 11.7 g/dL (13.0-18.0); Mean Corp Hgb Conc. 34.2 g/dL (33.0-37.0); Mean Corpuscular Hgb 33.3 pg (27.0-31.0); Mean Corpuscular Volume 97.4 fL (80.0-94.0); Mean Platelet Volume 11.4 fL (7.4-10.4); Platelet Count 170 10^3/uL (130-400); Red Blood Cell Count 3.51 10^6/uL (4.70-6.10); Red Cell Dist. Width 13.7 % (11.5-14.5); White Blood Cell Count 11.8 10^3/uL (4.8-10.8)
[2024-04-23] MEDS: CALCIUM GLUCONATE 290 MG IV (07:20)
--- NOTE | 2024-04-23 08:01 | PTCARENOTE ---
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 NSR via cm, SaO2 @ 95% on 2lnc. All procedural sites stable. Amiodarone gtt infusing, d/c'd as ordered. Patient and family at bedside, updated to
plan of care for the day, in agreement. See work list for full assessment and interventions performed.
[2024-04-23] MEDS: PROTONIX 40 MG PO (08:40)
[2024-04-23] MEDS: PACERONE 400 MG PO ×3 (08:40→22:55)
[2024-04-23] MEDS: PLAVIX 75 MG PO (08:40)
[2024-04-23] MEDS: SENOKOT-S 1 TABLET PO ×2 (08:40→20:45)
[2024-04-23] MEDS: LASIX 40 MG IV (08:40)
[2024-04-23] MEDS: THERAGRAN 1 TABLET PO (08:40)
[2024-04-23] MEDS: NEURONTIN 100 MG PO ×2 (08:41→16:06)
[2024-04-23] MEDS: LOW STRENGTH ASPIRIN 81 MG PO (08:41)
[2024-04-23] MEDS: FLOMAX 0.4 MG PO (08:41)
[2024-04-23] MEDS: TOPROL XL 12.5 MG PO ×2 (08:41→20:45)
[2024-04-23] MEDS: KCL 20 MEQ PO ×2 (08:41→20:45)
[2024-04-23] MEDS: NICODERM TRANSDERMAL TRANSDERM (08:49)
[2024-04-23] MEDS: BACTROBAN 2% OINTMENT 1 APPLIC NASAL (08:49)
[2024-04-23] MEDS: NSS IV (11:39)
--- NOTE | 2024-04-23 11:51 | PTCARENOTE ---
VS obtained, assessment stable. Patient worked w/PT. Remains oob in chair, family at bedside visiting.
[2024-04-23] MEDS: FLEXERIL 5 MG PO (12:25)
[2024-04-23] MEDS: LASIX 20 MG IV (16:06)
--- NOTE | 2024-04-23 16:10 | PTCARENOTE ---
VS obtained, assessment unchanged. Patient resting comfortably.
[2024-04-23] MEDS: LIPITOR 80 MG PO (17:28)
[2024-04-23] MEDS: ROXICODONE 5 MG PO (20:44)
[2024-04-23] MEDS: CALCIUM GLUCONATE 100 IV (20:45)
--- NOTE | 2024-04-23 21:00 | PTCARENOTE ---
Patient received OOB in chair. Family at bedside. Patient A+A+Ox3. No neurological deficits noted. Patient assisted to bed without difficulty. Room air. SpO2 94%. Sinus Rhythm with BBC. Heart rate 60's. No c/o chest pain, pressure or
discomfort. Normoactive bowel sounds. No BM. Voiding without difficulty. Positive, palpable pulses. Sternal incision intact - Open to air. CT dressing intact. Right groin puncture site intact. Right knee incision intact - Surgical adhesive -
Open to air. Patient's right forearm with pinkish red area and mildly swollen - No c/o pain or discomfort. Calcium Gluconate 2gram/100ml IV per PA order - Infusing without difficulty. Assessment as documented.
[2024-04-23] MEDS: NEURONTIN PO (22:55)
[2024-04-23] MEDS: TYLENOL PO (22:55)
[2024-04-24] VITALS (9 sets, daily range): BP systolic 98–132; BP diastolic 58–72; PULSE 64; BMI 26.5
--- NOTE | 2024-04-24 | PTCARENOTE ---
Patient sleeping without difficulty. Assessment/Interventions as documented.
[2024-04-24] MEDS: TYLENOL 650 MG PO (02:13)
[2024-04-24] MEDS: FLEXERIL 5 MG PO (02:14)
--- NOTE | 2024-04-24 03:40 | W.PN.CT ---
Today's Communication / Plan
-
Plan:
-No major issues overnight. Hemodynamically and neurologically intact
-No further a-fib since the 4hrs on POD#3. Tolerating PO Amiodarone and Toprol XL
-Will not require DOAC/NOAC unless further a-fib
-[place] has resolved, Cr 1.4, was 1.4 yesterday (1.9 peak on 04/21, preop 1.1-1.4)
-Monitor hyponatremia, 132 today, was 132 yesterday. Cont. diuresis, may need Diamox today, fluid restriction
-Cont. current meds (ASA, Plavix, Amiodarone, Toprol XL, Lipitor, Flomax)
-F/U 2-view cxr
-Encourage use of IS
-OOB into chair
-D/C home (going to stay with daughter at her house)
Assessment / Plan
-
- NSTEMI with mv-CAD- s/p CABG x 4 (In situ NAIR to LAD, Ao to RSVG to OM1, Ao to RSVG to RPDA seq to OM3); Left atrial appendage exclusion [35 mm clip] on 04/19/24, pod #5
- Intraop ANNIE: LVEF was 60% with no significant regional wall motion abnormalities. Following surgery, his EF remained the same at 60%, perhaps mildly hyperdynamic to 65% with no new regional wma. His left atrial appendage was verified to be free
of any thrombus or debris preoperatively and found to be totally occlusive postoperatively with a 35 mm device (AtriCure, serial #[id number]).
- Prior PCI with stenting
- Hypertension
- Hyperlipidemia
- Tobacco abuse currently
- RBBB, LAFB preop
- COPD
- Left heart catheter this admission
- BPH status post TURP
- Hematuria, iatrogenic - resolved, Chaudhari irrigated by Urology preop
-Acute postop atelectasis
-Acute postop hypovolemia with subsequent hypervolemia
-Acute blood loss anemia
-Acute pulmonary insufficiency
-Acute postop hypermagnesemia
-Acute postop hyponatremia
-Postop [place]
Discussed patient care with: Cardiology, Nursing, Respiratory Therapy, Pharmacy and Care Team
Subjective
Procedure
CABG x 4 NAIR-LAD, SVG-OM1, SVG-OM3 & RPDA, left atrial appendage exclusion #35mm clip by Dr. Raymond Hi
- offers no complaints
-
Date of Service: April 24, 2024
Pt c/o mild incisional pain, otherwise feels well
Objective Data
-
PT 17.7 Sec (11.4-14.6) H 04/19/24 15:12
INR 1.43 04/19/24 15:12
APTT 35.7 Sec (23.4-35.0) H 04/19/24 15:12
Vital Signs
Vital Signs
Temp Pulse Resp BP Pulse Ox
98.0 F 61 16 96/65 94
04/23/24 22:50 04/24/24 03:00 04/23/24 22:50 04/23/24 22:55 04/24/24 03:00
CT Intake/Output/Weight
04/23/24 04/23/24 04/24/24
06:59 18:59 06:59
Intake Total 740.0 / 1100.0 650 / 990 340 / 990
Output Total 650 / 1375 2200 / 2600 400 / 2600
Balance 90.0 / -275.0 -1550 / -1610 -60 / -1610
SaO2: 94 (RA)
Physical Exam
-
General: Awake, Oriented and AOx3
Cardiovascular: Regular rate & rhythm, No Murmurs, No Rub and No Gallop
Respiratory: Decreased Breath Sounds (at bases, otherwise clear)
Sternum: Stable
Incision: Clean, Dry, Intact and Dressing Intact
Extremities: Other (+trace edema)
Data Reviewed
-
Lab Results: Results Reviewed
Medications: Active Meds Reviewed
Chest X-Ray: Report Reviewed and Image Reviewed
ECG: Report Reviewed and Image Reviewed
--- NOTE | 2024-04-24 05:30 | PTCARENOTE ---
Patient A+A+Ox3. No neurological deficits noted. AM lab work collected and sent. ELIAS wipes. OOB to chair in AM. Assessment/Interventions as documented.
[2024-04-24 05:46] LABS: Hematocrit 33.4 % (39.0-52.0); Hemoglobin 11.2 g/dL (13.0-18.0); Mean Corp Hgb Conc. 33.5 g/dL (33.0-37.0); Mean Corpuscular Hgb 33.2 pg (27.0-31.0); Mean Corpuscular Volume 99.1 fL (80.0-94.0); Mean Platelet Volume 10.8 fL (7.4-10.4); Platelet Count 223 10^3/uL (130-400); Red Blood Cell Count 3.37 10^6/uL (4.70-6.10); Red Cell Dist. Width 13.6 % (11.5-14.5); White Blood Cell Count 12.3 10^3/uL (4.8-10.8)
[2024-04-24 06:06] LABS: Blood Urea Nitrogen 37 mg/dl (9-20); Calcium 9.1 mg/dl (8.4-10.2); Carbon Dioxide 31 mmol/L (22-30); Chloride 95 mmol/L (98-107); Estimated Creatinine Clearance 39 ml/min; Glucose 98 mg/dl (70-99); Potassium 4.2 mmol/L (3.5-5.1); Sodium 132 mmol/L (135-145); eGFR 51.13
[2024-04-24] MEDS: TYLENOL PO (06:27)
[2024-04-24] MEDS: KCL 20 MEQ PO (06:48)
[2024-04-24] MEDS: DIAMOX 125 MG PO (07:13)
[2024-04-24] MEDS: PROTONIX 40 MG PO (08:31)
[2024-04-24] MEDS: PLAVIX 75 MG PO (08:32)
[2024-04-24] MEDS: LOW STRENGTH ASPIRIN 81 MG PO (08:32)
[2024-04-24] MEDS: PACERONE 200 MG PO (08:32)
[2024-04-24] MEDS: FLOMAX 0.4 MG PO (08:32)
[2024-04-24] MEDS: THERAGRAN 1 TABLET PO (08:32)
[2024-04-24] MEDS: TOPROL XL 12.5 MG PO (08:32)
[2024-04-24] MEDS: NEURONTIN 100 MG PO (08:32)
[2024-04-24] MEDS: ROXICODONE 2.5 MG PO (08:32)
[2024-04-24] MEDS: NICODERM TRANSDERMAL TRANSDERM (08:33)
--- NOTE | 2024-04-24 08:44 | W.DCSUMMARY ---
Discharge Summary
Discharge Data
Date of Admission: 04/16/24
Date of Discharge: 04/24/24
-
Pending Results: No
Hospital Course
Primary care physician: none
Outpatient circular knitter: Anthony Blanchard
Inpatient consultants: [facility] cardiology, pulmonary manager lpn, urology
Procedures:
1. Coronary artery bypass grafting and left atrial appendage clip
Primary Diagnosis:
1. NSTEMI
Secondary Diagnoses:
1. Triple-vessel coronary disease
2. BPH status post TURP
3. Hypertension
4. Hyperlipidemia
5. Current tobacco abuse
6. Mild obstructive lung defect with FEV1/FVC: 61/80% predicted with FEV1: 2.41 L/102%
7. Preoperative hematuria-iatrogenic
8. Acute postop [place] on chronic kidney disease stage IIIa (GFR 51)
9. Acute postoperative atrial fibrillation
10. Acute postoperative hyponatremia
11. Acute post-op pulmonary insufficiency
HPI: 78-year-old male admitted to [facility] [place] [facility] on 04/16 with complaints of chest pain. EKG reported new anterior T wave inversions with left anterior fascicular block and elevated troponin (0.05>0.1).
Hospital course: Left heart catheterization reported MVCAD. Urology consulted pre-op for severely enlarged prostate and Chaudhari irrigated pre-op for hematuria. On 04/19/2024, patient underwent CABG x 4 with NAIR to LAD, SVG to OM1, SVG in sequence to
RPDA and OM 3, and placement of left atrial appendage #[address] Raymond Hi. Patient received no intraoperative blood products. Postprocedure ANNIE reported an EF of 60-65%. Patient returned to CVICU on Levophed, insulin, and Precedex.
Patient was extubated around 1630 the day of surgery. The bladder catheter was removed on postoperative day #1, and patient started on Flomax. There creatinine bumped from 1-1.5 and IV fluids were given. Levophed was weaned off the afternoon of
postoperative day 1. The left pleural chest tube was removed. On postoperative day #2, the temporary ventricular wires were removed two mediastinal chest tubes were removed. On postoperative day #3, the right IJ cordis was removed and patient
diuresed with 40 of Lasix IV. Patient had a 4-hour period of rapid A-fib that was treated with amiodarone bolus and infusion. On postoperative day #4, patient developed an IV amiodarone infiltrate and dosing was converted to oral route. Patient
was again aggressively diuresed with IV Lasix with resultant 2600cc of 24 urine output. A review of telemetry strips on postoperative day #5 concluded no further episodes of atrial fibrillation. Patient ambulated in halls with nursing staff
without difficulty. Creatinine level remains stable at 1.4 CO2 was 31 and patient diuresed with Diamox 250 mg x 1. Sodium remains a little low at 132. A predischarge 2 view chest x-ray reported no pneumothorax or significant pleural effusion.
Patient and daughter were strongly encouraged to identify and follow with a primary care provider. Patient strongly advised to pursue abstinence from smoking. Patient planning to stay with daughter on discharge. He will follow-up with Dr. Blanchard
for medical cardiology care. He will follow-up with Dr. Raymond Hi in approximately 4 weeks for routine postoperative evaluation. Patient showered and is deemed stable for discharge home. Transitional nurse notified of need for follow-up BMP in
1 week.
Home medication changes:
Amiodarone for postoperative A-fib
Oxycodone, Flexeril, and gabapentin as needed for pain
Aspirin, clopidogrel, atorvastatin, metoprolol for coronary disease
Pantoprazole as GI prophylaxis while on clopidogrel
Tamsulosin for BPH
Discharge Plan
-
Patient Disposition: Home (Routine Discharge)
Discharge Diagnosis/Procedures: NSTEMI, s/p CABG x 4, left atrial appendage clip
Condition: Good
Diet: Low Cholesterol and Low Sodium
Activity: No strenuous activity
Driving Restrictions: Not until seen by your Dr
Bathing Restrictions: OK to Shower
Blood Work: BMP in 1 week
Other Services: Cardiac Rehab
Specialty Instructions: Weigh Daily- Call MD for wt gain/loss 3 lbs overnight/5 lbs in 1 week
Stand Alone Forms: DC Instructions- Cath/EP Lab
Referrals:
CT Transitional Care Nurse [Outside] - in one to two days
(
The Cardiothoracic Transitional Care Nurse will call you to set up a visit in 1-2 days.)
[facility] [Outside] - 06/01/24 9:30 am
(Cardiac Rehab Orientation appointment is on 06/01/24 at 9:30am
The Cardiac Rehab gym is located on the first floor of the [facility].)
Joshua Solano MD [Active] - in one to two months (full PFTs on day of office visit)
Josue Saavedra MD [Non-Admitting Privileges] - in four to six weeks (Please make an appointment in four to six weeks.)
Mata Santoro MD [Active] - 06/03/24 2:00 pm (Your appointment on 05/16/24 at 2:20p.m. has been cancelled.)
Raymond Hi MD [Active] - 05/23/24 2:30 pm
Prescriptions:
New
acetaminophen 325 mg Tablet
650 mg PO Q4HPRN PRN (Reason: mild pain,headache,temp >101F ) Qty: 0 0RF
aspirin 81 mg Tablet,Chewable
81 mg PO DAILY Qty: 0 0RF
cyclobenzaprine 10 mg Tablet
5 mg PO Q8HPRN PRN (Reason: muscle spasm) Qty: 10 0RF
atorvastatin 80 mg Tablet
80 mg PO QPM Qty: 30 1RF
tamsulosin 0.4 mg Capsule
0.4 mg PO DAILY Qty: 30 0RF
gabapentin 100 mg Capsule
100 mg PO TID Qty: 30 0RF
oxycodone 5 mg Tablet
5 mg PO Q4HPRN PRN (Reason: severe pain) Qty: 10 0RF
metoprolol succinate [Toprol XL] 25 mg tablet extended release 24 hr
25 mg PO DAILY Qty: 30 1RF
clopidogrel 75 mg Tablet
75 mg PO DAILY Qty: 30 1RF
pantoprazole 40 mg Tablet,Delayed Release (Dr/Ec)
40 mg PO DAILY Qty: 30 1RF
amiodarone 200 mg tablet
200 mg PO BID Qty: 60 1RF
Continued
Romel Multivitamin For Men 1 EACH tablet
1 ea PO DAILY
Discontinued
ibuprofen [Advil] 200 mg Tablet
400 mg PO Q6H PRN (Reason: pain)
Discharge Orders:
Discharge Patient (As Directed); Ordered 04/24/24
Ordered By: Ophelia Holden
Care Plan Goals
Care Plan Goals:
Problem: Readiness for enhanced knowledge related to diagnosis and treatment plan
Goal: Understand your diagnosis and treatment plan needs, including medications if applicable.
Instructions: Know your diagnosis, underlying causes and treatment plan options, including medications if applicable. Consult with your health care team to learn about your diagnosis and treatment plan, including medications if applicable.
Discharge Date and Time
Print Language: TAJIK
[2024-04-24] MEDS: SENOKOT-S PO (08:51)
[2024-04-24] MEDS: NSS IV (08:51)
--- NOTE | 2024-04-24 08:52 | PTCARENOTE ---
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 NSR via cm, SaO2 @ 94% on RA. All procedural sites stable. Dr. Hi and team to bedside, patient and daughter updated to plan
of care for the day including pending d/c home, in agreement. See work list for full assessment and interventions performed.
--- NOTE | 2024-04-24 12:00 | PTCARENOTE ---
Patient set up to shower, completed independently. VS obtained, stable. Assisted to dress, now resting in recliner. For d/c shortly.
--- NOTE | 2024-04-24 13:14 | PTCARENOTE ---
Discharge instructions thoroughly reviewed w/patient and daughter, all questions answered. PIV removed. Patient and all belongings transported to waiting vehicle for d/c home with daughter.
== END 2024-04-24 13:46 | disposition home or self-care (01) | DRG 233 ==
LOC: CVICU 18:28
PROVIDERS: Anesthesiology; Clinical Nurse Specialist Acute Care; Emergency Medicine; Hospitalist; Internal Medicine Interventional Cardiology; Nurse Practitioner; Physician Assistant Medical; ADMITTING PHYSICIAN Hospitalist; ATTENDING PHYSICIAN Thoracic Surgery (Cardiothoracic Vascular Surgery); CONSULT PHYSICIAN Internal Medicine Cardiovascular Disease; CONSULT PHYSICIAN Internal Medicine Critical Care Medicine; CONSULT PHYSICIAN Urology; EMERGENCY PHYSICIAN Emergency Medicine
PROC: B2111ZZ Fluoroscopy of Multiple Coronary Arteries using Low Osmolar Contrast (ICD-10-PCS; 2024-04-18)
PROC: 4A023N7 Measurement of Cardiac Sampling and Pressure, Left Heart, Percutaneous Approach (ICD-10-PCS; 2024-04-18)
PROC: B2151ZZ Fluoroscopy of Left Heart using Low Osmolar Contrast (ICD-10-PCS; 2024-04-18)
PROC: 02100Z9 Bypass Coronary Artery, One Artery from Left Internal Mammary, Open Approach (ICD-10-PCS; 2024-04-19)
PROC: 02L70CK Occlusion of Left Atrial Appendage with Extraluminal Device, Open Approach (ICD-10-PCS; 2024-04-19)
PROC: 021209W Bypass Coronary Artery, Three Arteries from Aorta with Autologous Venous Tissue, Open Approach (ICD-10-PCS; 2024-04-19)
PROC: B24BZZ4 Ultrasonography of Heart with Aorta, Transesophageal (ICD-10-PCS; 2024-04-19)
PROC: 03HY32Z Insertion of Monitoring Device into Upper Artery, Percutaneous Approach (ICD-10-PCS; 2024-04-19)
PROC: 06BP4ZZ Excision of Right Saphenous Vein, Percutaneous Endoscopic Approach (ICD-10-PCS; 2024-04-19)
PROC: 5A1221Z Performance of Cardiac Output, Continuous (ICD-10-PCS; 2024-04-19)
PROC: 02HV33Z Insertion of Infusion Device into Superior Vena Cava, Percutaneous Approach (ICD-10-PCS; 2024-04-19)
DX: I21.4 Non-ST elevation (NSTEMI) myocardial infarction (principal); J95.1 Acute pulmonary insufficiency following thoracic surgery; N17.9 Acute kidney failure, unspecified; D62 Acute posthemorrhagic anemia; J98.11 Atelectasis; E87.1 Hypo-osmolality and hyponatremia; Q21.12 Patent foramen ovale; I25.10 Atherosclerotic heart disease of native coronary artery without angina pectoris; F17.210 Nicotine dependence, cigarettes, uncomplicated; J84.112 Idiopathic pulmonary fibrosis; N40.0 Benign prostatic hyperplasia without lower urinary tract symptoms; I10 Essential (primary) hypertension; J44.89 Other specified chronic obstructive pulmonary disease; R31.0 Gross hematuria; D69.59 Other secondary thrombocytopenia; E86.1 Hypovolemia; E87.70 Fluid overload, unspecified; E83.41 Hypermagnesemia; E78.00 Pure hypercholesterolemia, unspecified; I72.3 Aneurysm of iliac artery; E83.59 Other disorders of calcium metabolism; N29 Other disorders of kidney and ureter in diseases classified elsewhere; K80.20 Calculus of gallbladder without cholecystitis without obstruction; I71.43 Infrarenal abdominal aortic aneurysm, without rupture; Z82.49 Family history of ischemic heart disease and other diseases of the circulatory system; Z87.11 Personal history of peptic ulcer disease; Z90.79 Acquired absence of other genital organ(s); Z95.5 Presence of coronary angioplasty implant and graft
CPT/HCPCS: 36600; 71045; 71046; 71275; 74174; 80048; 80053; 80061; 82248; 82330; 82565; 82805; 82810; 82947; 82962; 83036; 83735; 83880; 84132; 84302; 84484; 84520; 85014; 85018; 85025; 85027; 85049; 85610; 85730; 86850; 86900; 86901; 86920; 93005; 93306; 93312; 93320; 93325; 93458; 93880; 94002; 94003; 94010; 96361; 96365; 96366; 96375; 97116; 97163; 97167; 97530; 97535; 99291; J2916; Q9967

== ENCOUNTER → 2024-05-30 12:34 | Outpatient (REF) | payer MEDICARE, SELFPAY ==
[2024-05-30 16:20] LABS: ALT (SGPT) 38 U/L (0-50); AST (SGOT) 33 U/L (17-59); Albumin 4.3 g/dl (3.5-5.0); Alkaline Phosphatase 202 U/L (38-126); Blood Urea Nitrogen 22 mg/dl (9-20); Calcium 9.5 mg/dl (8.4-10.2); Carbon Dioxide 27 mmol/L (22-30); Chloride 106 mmol/L (98-107); Glucose 126 mg/dl (70-99); HDL Cholesterol 41 mg/dl; LDL Cholesterol, Calculated 17 mg/dl; Potassium 4.2 mmol/L (3.5-5.1); Sodium 143 mmol/L (135-145); Total Bilirubin 0.5 mg/dl (0.2-1.3); Total Cholesterol 100 mg/dl (50-199); Total Protein 6.9 g/dl (6.3-8.2); Triglyceride 212 mg/dl (10-149); Very Low Density Lipoprotein 42 mg/dl (0-30)
[2024-05-30 16:22] LABS: % Basophils 0.7 % (0-2); % Eosinophils 6.7 % (0-6); % Immature Granulocytes 0.3 % (0-0.5); % Lymphocytes 10.6 % (20.5-51.1); % Monocytes 7.5 % (1.7-9.3); % Neutrophils 74.2 % (42.2-75.2); Absolute Basophils 0.1 10^3/uL (0-0.2); Absolute Eosinophils 0.6 10^3/uL (0-0.7); Absolute Monocytes 0.7 10^3/uL (0.1-0.6); Hematocrit 40.1 % (39.0-52.0); Hemoglobin 13.1 g/dL (13.0-18.0); Mean Corp Hgb Conc. 32.7 g/dL (33.0-37.0); Mean Corpuscular Hgb 33.4 pg (27.0-31.0); Mean Corpuscular Volume 102.3 fL (80.0-94.0); Mean Platelet Volume 11.2 fL (7.4-10.4); Nucleated Red Blood Cells % 0 % (-); Platelet Count 245 10^3/uL (130-400); Red Blood Cell Count 3.92 10^6/uL (4.70-6.10); Red Cell Dist. Width 16.1 % (11.5-14.5); White Blood Cell Count 9.4 10^3/uL (4.8-10.8)
[2024-05-30 16:47] LABS: TSH Reflex To Free T4 8.48 uIU/ml (0.47-4.68)
[2024-05-30 17:15] LABS: Free T4 1.13 ng/dl (0.78-2.19)
== END ==
LOC: HWLAB 12:34
DX: Z76.89 Persons encountering health services in other specified circumstances (principal); Z09 Encounter for follow-up examination after completed treatment for conditions other than malignant neoplasm; Z95.1 Presence of aortocoronary bypass graft; I48.0 Paroxysmal atrial fibrillation; I25.2 Old myocardial infarction; I10 Essential (primary) hypertension; E78.2 Mixed hyperlipidemia; N18.31 Chronic kidney disease, stage 3a; N17.9 Acute kidney failure, unspecified; J44.9 Chronic obstructive pulmonary disease, unspecified; R31.0 Gross hematuria; Z12.5 Encounter for screening for malignant neoplasm of prostate
CPT/HCPCS: 36415; 80053; 80061; 84439; 84443; 85025; G0103

== ENCOUNTER 2024-06-22 16:45 | Outpatient (RCR) | payer MEDICARE, SELFPAY | END 2024-06-22 23:59 | disposition home or self-care (01) | LOC: CRHB 16:45 | PROVIDERS: ATTENDING PHYSICIAN Internal Medicine Cardiovascular Disease | DX: I21.4 Non-ST elevation (NSTEMI) myocardial infarction (principal); I25.2 Old myocardial infarction (principal); Z95.1 Presence of aortocoronary bypass graft; I25.10 Atherosclerotic heart disease of native coronary artery without angina pectoris | CPT/HCPCS: G0422; G0423 ==

== ENCOUNTER 2024-07-22 17:30 | Outpatient (RCR) | payer MEDICARE, SELFPAY | END 2024-07-22 23:59 | disposition home or self-care (01) | LOC: CRHB 17:30 | PROVIDERS: ATTENDING PHYSICIAN Internal Medicine Cardiovascular Disease | DX: I21.4 Non-ST elevation (NSTEMI) myocardial infarction (principal); I25.10 Atherosclerotic heart disease of native coronary artery without angina pectoris (principal); Z95.1 Presence of aortocoronary bypass graft; I25.2 Old myocardial infarction | CPT/HCPCS: G0422 ==

== ENCOUNTER → 2024-08-22 06:14 | Outpatient (REF) | payer MEDICARE, SELFPAY ==
[2024-08-22 10:41] LABS: Blood Urea Nitrogen 21 mg/dl (9-20); Calcium 9.6 mg/dl (8.4-10.2); Carbon Dioxide 24 mmol/L (22-30); Chloride 108 mmol/L (98-107); Glucose 98 mg/dl (70-99); Potassium 4.4 mmol/L (3.5-5.1); Sodium 142 mmol/L (135-145); eGFR 40.25
== END ==
LOC: HWLAB 06:14
PROVIDERS: ATTENDING PHYSICIAN Internal Medicine Cardiovascular Disease
DX: I10 Essential (primary) hypertension (principal)
CPT/HCPCS: 36415; 80048

== ENCOUNTER 2024-08-22 16:50 | Outpatient (RCR) | payer MEDICARE, SELFPAY ==
[2024-08-22 09:51] LABS: HDL Cholesterol 43 mg/dl; LDL Cholesterol, Calculated 44 mg/dl; Total Cholesterol 120 mg/dl (50-199); Triglyceride 169 mg/dl (10-149); Very Low Density Lipoprotein 33 mg/dl (0-30)
== END 2024-08-22 23:59 | disposition home or self-care (01) ==
LOC: CRHB 16:50
PROVIDERS: ATTENDING PHYSICIAN Internal Medicine Cardiovascular Disease
DX: I25.10 Atherosclerotic heart disease of native coronary artery without angina pectoris (principal); Z95.1 Presence of aortocoronary bypass graft; I25.2 Old myocardial infarction
CPT/HCPCS: 71046; 80061; G0422

== ENCOUNTER 2024-09-14 15:25 | Outpatient (RCR) | payer MEDICARE, SELFPAY | END 2024-09-20 11:08 | disposition home or self-care (01) | LOC: CRHB 15:25 | PROVIDERS: ATTENDING PHYSICIAN Internal Medicine Cardiovascular Disease | DX: I25.10 Atherosclerotic heart disease of native coronary artery without angina pectoris (principal); Z95.1 Presence of aortocoronary bypass graft; I25.2 Old myocardial infarction | CPT/HCPCS: G0422; G0423 ==

== ENCOUNTER 2025-02-13 02:57 | Observation (INO) | payer MEDICARE, SELFPAY ==
[2025-02-12 20:35] VITALS: BP 127/80
[2025-02-12 20:52] LABS: Hematocrit 44.1 % (39.0-52.0); Hemoglobin 15.3 g/dL (13.0-18.0); Mean Corp Hgb Conc. 34.7 g/dL (33.0-37.0); Mean Corpuscular Volume 95.0 fL (80.0-94.0); Nucleated Red Blood Cells % 0 % (-); Platelet Count 195 10^3/uL (130-400); Red Cell Dist. Width 13.4 % (11.5-14.5)
[2025-02-12 20:55] VITALS: BMI 28.4
[2025-02-12 21:01] VITALS: BP 109/63
[2025-02-12 21:15] LABS: Troponin I < 0.012 ng/ml
[2025-02-12 21:19] LABS: ALT (SGPT) 39 U/L (0-50); AST (SGOT) 49 U/L (17-59); Albumin 4.6 g/dl (3.5-5.0); Alkaline Phosphatase 115 U/L (38-126); Blood Urea Nitrogen 22 mg/dl (9-20); Calcium 9.0 mg/dl (8.4-10.2); Carbon Dioxide 20 mmol/L (22-30); Chloride 104 mmol/L (98-107); Estimated Creatinine Clearance 38 ml/min; Glucose 115 mg/dl (70-99); Potassium 4.5 mmol/L (3.5-5.1); Sodium 136 mmol/L (135-145); Total Protein 7.5 g/dl (6.3-8.2); eGFR 50.81
[2025-02-12 21:29] LABS: COVID-19 Antigen Negative (Negative)
[2025-02-12 22:22] VITALS: BP 111/66
[2025-02-12 23:00] VITALS: BP 104/63
[2025-02-13] VITALS (9 sets, daily range): BP systolic 104–145; BP diastolic 58–73; BMI 28.1
--- NOTE | 2025-02-13 01:23 | ED.GENMED ---
History of Present Illness
<Yandy Gonzales PA-C - Last Filed: 02/13/25 07:52>
General
Chief Complaint: Breathing Problem
Source: patient
Exam Limitations: none
Time Seen by Provider: 02/13/25 01:10
Nursing documentation reviewed up to this point in time: agreed with
History of Present Illness
History of Present Illness:
79 year old male with past medical history of COPD, coronary artery disease, GERD, presents to the ER today with concerns of mild chest discomfort and shortness of breath. This has been going the past few days. Family also notes that he appeared
to be slightly confused. He did have a fever at home. Upon arrival to triage, nursing staff staff told me that he appeared to be working harder to breath and was sating 88-90% on RA. He has also had a lot of wheezing. No productive cough. No
vomiting or nausea. No abdominal pain. No sick contacts. He does not have any inhalers that he uses at home.
Past History
<Yandy Gonzales PA-C - Last Filed: 02/13/25 07:52>
Past History
ED Past Medical History: Other (Peptic ulcer disease)
ED Past Surgical History: Bowel resection (Perforated peptic ulcer)
Social History
Tobacco: Smoker
Alcohol: Occasional
Drug: None
Living: with family
Family History
Family History: Negative Diabetes, Hypertension, Early CAD, Asthma or Cancer
Review of Systems
<LUCERO Mota Last Filed: 02/13/25 07:52>
Review of Systems
All Other Systems: ROS reviewed and negative except as documented in HPI and ROS
Phy Exam
<Yandy Gonzales PA-C - Last Filed: 02/13/25 07:52>
Physical Exam
Physical Exam:
GEN: Well appearing, NAD
Eyes: PERRLA, EOMs intact, no scleral icterus
HENT: NCAT, oral mucosa moist, no JVD, no cervical adenopathy.
Lungs: Increased respiratory rate, diffuse wheezing heard bilaterally
Cardiac: RRR, no M/R/G, no peripheral edema.
Abdomen: S, NT, ND, NABS
Neuro: AO x 3, no focal deficits
MSK: No gross deformity or ecchymosis. No edema. No digital clubbing
Skin: No rashes, petechiae. Normal color, no pallor or jaundice.
Psych: Calm, cooperative, proper hygiene
Scores
<Yandy Gonzales PA-C - Last Filed: 02/13/25 07:52>
Heart Failure Risk
Heart Failure Risk Score: Not Applicable
Course
<Yandy Gonzales PA-C - Last Filed: 02/13/25 07:52>
Orders/Labs/Results
Orders:
Orders
02/12/25 20:37
Electrocardiogram (*1) Urgent
Reason for Study: Shortness of Breath
EKG- Treatment ONCE
02/12/25 20:46
Complete Blood Count/With Diff Urgent
Comprehensive Metabolic Panel Urgent
NT-proBNP Urgent
Troponin I Urgent
02/12/25 21:05
COVID-19 Antigen Urgent
Source: Nasal Swab
02/12/25 21:08
Influenza A+B Rapid Molecular Urgent
CHIDI Source: Nasal Swab
Specimen Description:
02/12/25 21:19
Chest [CR Chest - 2 Views ] Urgent
Comment:
Reason For Exam: cough wheezing
02/13/25 01:22
Dexamethasone Sod Phosphate [Decadron] 10 mg IV NOW STA
Ipratropium/Albuterol Sulfate [Duoneb] 3 ml INH R NOW STA
02/13/25 01:29
0.9% Sodium Chloride 500 ml [Nss] 500 ml IV BOLUS
CefTRIAXone [Rocephin] 2,000 mg IV NOW STA
02/13/25 01:30
Respiratory Syncytial Virus Urgent
CHIDI Source: Nasal Swab
Specimen Description:
Date Specimen was Collected: 02/13/25
Time Specimen was Collected: 01:26
Doxycycline [Vibramycin] 100 mg PO NOW STA
02/13/25 01:41
Acetaminophen [Tylenol] 650 mg .ROUTE .STK-MED ONE
02/13/25 01:42
Sterile Water [Sterile Water For Injection] 20 ml .ROUTE .STK-MED
02/13/25 01:44
Lactic Acid Urgent
02/13/25 01:45
Acetaminophen [Tylenol] 650 mg PO NOW STA
02/13/25 02:37
Admit/Transfer Patient As Directed
Co-Sign Provider:
Level of Care: Observation services
Assign to:: Medical/Surgical
Physician / Group: Damien
Diagnosis: COPD/Acute bronchitis
PRN Pain Medication Management As Directed
May give lesser potent ordered pain med per pt: Yes
preference::
Protocol:: Medication orders for pain may be administered in a
manner that supports deferring to patient preference
when the pt is:
- Requesting an ordered lesser potent pain medication.
Least to most potent pain medications are defined
as: acetaminophen < NSAID < tramadol < opioids
(morphine, oxycodone, hydromorphone).
- Requesting a lesser dose of the same medication IF
ORDERED.
- Requesting a less intrusive route of administration
if both routes are prescribed by the provider (PO <
IV).
02/13/25 02:38
Code Status As Directed
Resuscitation Status: Full Code
02/13/25 04:45
Bisacodyl [Dulcolax] 10 mg RECTAL [id number] PRN
Docusate W/Senna [Senokot-S] 1 tablet PO BIDPRN PRN
Guaifenesin/Dextromethorphan [Robitussin Dm] 5 ml PO Q4HPRN PRN
Ipratropium/Albuterol Sulfate [Duoneb] 3 ml INH R Q4HPRN PRN
Ondansetron Injectable [Zofran] 4 mg IV Q6HPRN PRN
Polyethylene Glycol Powder [Miralax] 17 grams PO DAILYPRN PRN
Tramadol HCl [Ultram] 50 mg PO Q6H PRN back pain
Peak Flow Rate [RESP] DAILY
Quantity: 1
02/13/25 04:45
Activity As Directed
Activity Level: With Assistance
Vital Signs As Directed
Frequency: Per unit guidelines
O2 Therapy [RESP] Routine
Nasal Cannula Liter Flow: 2 LPM
Titrate/Wean O2 to maintain O2 sat greater than (%): 92
Pulse Ox/cont/shift [RESP] Routine
Quantity: 1
Rx Incentive Spirometry [RESP] Routine
Frequency: q1h while awake
DX Deep Vein Thrombosis Video Routine
02/13/25 04:59
Basic Metabolic Panel IN AM
Complete Blood Count/No Diff IN AM
Magnesium IN AM
Procalcitonin IN AM
If negative, will antibiotics be d/c'd or not started: Yes
Does the patient have renal or hepatic impairment?: No
Any recent (w/in 48 hrs) physiologic stress (CPR, rhabdo): No
02/13/25 Breakfast
Cholesterol Lowering
At Your Request: Full Participation
Does patient need a safe tray?: No
Cholesterol Lowering: Sodium, 2 Gram
Acetaminophen [Tylenol] 650 mg PO Q4HPRN PRN mild pain,headache,temp >101F
02/13/25 08:00
Aspirin Chewable [Low Strength Aspirin] 81 mg PO DAILY
Clopidogrel Bisulfate [Plavix] 75 mg PO DAILY
Heparin 5,000 units SC Q8
Ipratropium/Albuterol Sulfate [Duoneb] 3 ml INH R QID
Metoprolol Xl [Toprol Xl] 12.5 mg PO DAILY
Pantoprazole [Protonix] 40 mg PO DAILY
02/13/25 12:00
MethylPREDNISolone PF [Solu-Medrol Pf] 40 mg IV Q12H
02/13/25 13:00
Doxycycline [Vibramycin] 100 mg PO Q12
02/14/25 01:00
CefTRIAXone [Rocephin] 1,000 mg IV Q24H
Abnormal Lab Results
02/12/25
20:46
WBC 19.1 H 10^3/uL
(4.8-10.8)
RBC 4.64 L 10^6/uL
(4.70-6.10)
MCV 95.0 H fL
(80.0-94.0)
MCH 33.0 H pg
(27.0-31.0)
MPV 10.5 H fL
(7.4-10.4)
Abs Immat Gran (auto) 0.1 H 10^3/uL
(0-0.05)
Absolute Neuts (auto) 16.5 H 10^3/uL
(1.4-6.5)
Absolute Lymphs (auto) 1.1 L 10^3/uL
(1.2-3.4)
Absolute Monos (auto) 1.3 H 10^3/uL
(0.1-0.6)
Neutrophils % 86.4 H %
(42.2-75.2)
Lymphocytes % 5.8 L %
(20.5-51.1)
Carbon Dioxide 20 L mmol/L
(22-30)
BUN 22 H mg/dl
(9-20)
Creatinine 1.4 H mg/dL
(0.7-1.3)
Glucose 115 H mg/dl
(70-99)
02/12/25 20:46
02/12/25 20:46
Vital Signs
Initial and Last Documented VS:
Initial Vital Signs
Temp Pulse Resp BP Pulse Ox
97.4 F 93 18 127/80 94
02/12/25 20:35 02/12/25 20:35 02/12/25 20:35 02/12/25 20:35 02/12/25 20:35
Last Documented Vital Signs
Temp Pulse Resp BP Pulse Ox
98.0 F 75 17 114/70 94
02/13/25 05:00 02/13/25 04:16 02/13/25 04:16 02/13/25 04:33 02/13/25 06:03
<Jessica Mehta, DO - Last Filed: 02/13/25 02:14>
Orders/Labs/Results
Orders:
Orders
02/12/25 20:37
Electrocardiogram (*1) Urgent
Reason for Study: Shortness of Breath
EKG- Treatment ONCE
02/12/25 20:46
Complete Blood Count/With Diff Urgent
Comprehensive Metabolic Panel Urgent
NT-proBNP Urgent
Troponin I Urgent
02/12/25 21:05
COVID-19 Antigen Urgent
Source: Nasal Swab
02/12/25 21:08
Influenza A+B Rapid Molecular Urgent
CHIDI Source: Nasal Swab
Specimen Description:
02/12/25 21:19
Chest [CR Chest - 2 Views ] Urgent
Comment:
Reason For Exam: cough wheezing
02/13/25 01:22
Dexamethasone Sod Phosphate [Decadron] 10 mg IV NOW STA
Ipratropium/Albuterol Sulfate [Duoneb] 3 ml INH R NOW STA
02/13/25 01:29
0.9% Sodium Chloride 500 ml [Nss] 500 ml IV BOLUS
CefTRIAXone [Rocephin] 2,000 mg IV NOW STA
02/13/25 01:30
Respiratory Syncytial Virus Urgent
CHIDI Source: Nasal Swab
Specimen Description:
Date Specimen was Collected: 02/13/25
Time Specimen was Collected: 01:26
Doxycycline [Vibramycin] 100 mg PO NOW STA
02/13/25 01:41
Acetaminophen [Tylenol] 650 mg .ROUTE .STK-MED ONE
02/13/25 01:42
Sterile Water [Sterile Water For Injection] 20 ml .ROUTE .STK-MED
02/13/25 01:44
Lactic Acid Urgent
02/13/25 01:45
Acetaminophen [Tylenol] 650 mg PO NOW STA
02/13/25 02:37
Admit/Transfer Patient As Directed
Co-Sign Provider:
Level of Care: Observation services
Assign to:: Medical/Surgical
Physician / Group: Damien
Diagnosis: COPD/Acute bronchitis
PRN Pain Medication Management As Directed
May give lesser potent ordered pain med per pt: Yes
preference::
Protocol:: Medication orders for pain may be administered in a
manner that supports deferring to patient preference
when the pt is:
- Requesting an ordered lesser potent pain medication.
Least to most potent pain medications are defined
as: acetaminophen < NSAID < tramadol < opioids
(morphine, oxycodone, hydromorphone).
- Requesting a lesser dose of the same medication IF
ORDERED.
- Requesting a less intrusive route of administration
if both routes are prescribed by the provider (PO <
IV).
02/13/25 02:38
Code Status As Directed
Resuscitation Status: Full Code
02/13/25 04:45
Bisacodyl [Dulcolax] 10 mg RECTAL [id number] PRN
Docusate W/Senna [Senokot-S] 1 tablet PO BIDPRN PRN
Guaifenesin/Dextromethorphan [Robitussin Dm] 5 ml PO Q4HPRN PRN
Ipratropium/Albuterol Sulfate [Duoneb] 3 ml INH R Q4HPRN PRN
Ondansetron Injectable [Zofran] 4 mg IV Q6HPRN PRN
Polyethylene Glycol Powder [Miralax] 17 grams PO DAILYPRN PRN
Tramadol HCl [Ultram] 50 mg PO Q6H PRN back pain
Peak Flow Rate [RESP] DAILY
Quantity: 1
02/13/25 04:45
Activity As Directed
Activity Level: With Assistance
Vital Signs As Directed
Frequency: Per unit guidelines
O2 Therapy [RESP] Routine
Nasal Cannula Liter Flow: 2 LPM
Titrate/Wean O2 to maintain O2 sat greater than (%): 92
Pulse Ox/cont/shift [RESP] Routine
Quantity: 1
Rx Incentive Spirometry [RESP] Routine
Frequency: q1h while awake
DX Deep Vein Thrombosis Video Routine
02/13/25 04:59
Basic Metabolic Panel IN AM
Complete Blood Count/No Diff IN AM
Magnesium IN AM
Procalcitonin IN AM
If negative, will antibiotics be d/c'd or not started: Yes
Does the patient have renal or hepatic impairment?: No
Any recent (w/in 48 hrs) physiologic stress (CPR, rhabdo): No
02/13/25 Breakfast
Cholesterol Lowering
At Your Request: Full Participation
Does patient need a safe tray?: No
Cholesterol Lowering: Sodium, 2 Gram
Acetaminophen [Tylenol] 650 mg PO Q4HPRN PRN mild pain,headache,temp >101F
02/13/25 08:00
Aspirin Chewable [Low Strength Aspirin] 81 mg PO DAILY
Clopidogrel Bisulfate [Plavix] 75 mg PO DAILY
Heparin 5,000 units SC Q8
Ipratropium/Albuterol Sulfate [Duoneb] 3 ml INH R QID
Metoprolol Xl [Toprol Xl] 12.5 mg PO DAILY
Pantoprazole [Protonix] 40 mg PO DAILY
02/13/25 12:00
MethylPREDNISolone PF [Solu-Medrol Pf] 40 mg IV Q12H
02/13/25 13:00
Doxycycline [Vibramycin] 100 mg PO Q12
02/14/25 01:00
CefTRIAXone [Rocephin] 1,000 mg IV Q24H
Abnormal Lab Results
02/12/25
20:46
WBC 19.1 H 10^3/uL
(4.8-10.8)
RBC 4.64 L 10^6/uL
(4.70-6.10)
MCV 95.0 H fL
(80.0-94.0)
MCH 33.0 H pg
(27.0-31.0)
MPV 10.5 H fL
(7.4-10.4)
Abs Immat Gran (auto) 0.1 H 10^3/uL
(0-0.05)
Absolute Neuts (auto) 16.5 H 10^3/uL
(1.4-6.5)
Absolute Lymphs (auto) 1.1 L 10^3/uL
(1.2-3.4)
Absolute Monos (auto) 1.3 H 10^3/uL
(0.1-0.6)
Neutrophils % 86.4 H %
(42.2-75.2)
Lymphocytes % 5.8 L %
(20.5-51.1)
Carbon Dioxide 20 L mmol/L
(22-30)
BUN 22 H mg/dl
(9-20)
Creatinine 1.4 H mg/dL
(0.7-1.3)
Glucose 115 H mg/dl
(70-99)
02/12/25 20:46
02/12/25 20:46
Vital Signs
Initial and Last Documented VS:
Initial Vital Signs
Temp Pulse Resp BP Pulse Ox
97.4 F 93 18 127/80 94
02/12/25 20:35 02/12/25 20:35 02/12/25 20:35 02/12/25 20:35 02/12/25 20:35
Last Documented Vital Signs
Temp Pulse Resp BP Pulse Ox
98.0 F 75 17 114/70 94
02/13/25 05:00 02/13/25 04:16 02/13/25 04:16 02/13/25 04:33 02/13/25 06:03
<Yandy Gonzales PA-C - Last Filed: 02/13/25 07:52>
MDM/Problems Addressed
Differential Diagnosis Includes:
viral syndrome, COPD exacerbation, pneumonia, ACS
MDM/Problems Addressed:
79-year-old male presents to the ER today with concerns of increasing wheezing and shortness of breath. He is mildly hypoxic on room air. He is tachypneic. Labs reviewed, leukocytosis noted. Chest x-ray without clear evidence of pneumonia.
Will initiate DuoNeb treatments and Decadron. While there is no clear evidence of infiltrate, in light of COPD and leukocytosis we will cover with abx for CAP
Chronic conditions affecting care:
COPD, CAD
<Yandy Gonzales PA-C - Last Filed: 02/13/25 07:52>
*Pulse Oximetry
SaO2: 96
Nasal Cannula flow liters per minute: 2
Oxygen Mode of Delivery: Room air
Patient hypoxic: no
*Critical Care Note
Total Time (30-74mins, 75-104mins- exclusive of procedures): Not Applicable
Data Reviewed
Review of Other/Old Records Reveals: Records (reviewed discharge summary from 04/24/24)
Source: patient and records
ED Attending Note
<Yandy Gonzales PA-C - Last Filed: 02/13/25 07:52>
-
Portions of this chart may have been created with voice recognition software.� Occasional wrong word or��sound alike� substitutions may have occurred due to the inherent limitations of voice recognition software.
<Jessica Mehta DO - Last Filed: 02/13/25 02:14>
ED Attending Note
Patient seen and examined by attending physician: Yes
I performed a history and physical exam of patient and discussed management with resident, I reviewed resident's note and agree with documented findings and plan of care.: Yes
ED Attending Note:
79-year-old gentleman with history of COPD, CAD/CABG. Family states patient 'always wheezes' but has had increased cough and wheezing over the past few days with onset of confusion tonight.
Exposed to several family members positive for RSV recently.
79-year-old gentleman appears his stated age, bright and alert, pleasant, noted to have very mild, nasal/stuffy voice.
Patient noted to be moderately hypoxic with room air pulse ox of 89% requiring supplemental oxygen.
Lungs with expiratory wheezing bilaterally. Frequent dry nonproductive cough.
Chest x-ray
Is unremarkable. Mild flattening consistent with COPD. No infiltrate nor evidence of CHF. Normal heart size.
Labs reveal moderately elevated white blood cell count 19. Normal H&H.
Creatinine 1.4, at patient's baseline.
BNP unremarkable at 428. Normal troponin.
COVID and flu testing are negative. Will add RSV.
Cough and wheezing have improved with nebulizer treatment but due to continued hypoxia, requiring supplemental oxygen patient will require acute hospitalization.
Due to significantly elevated white blood cell count will initiate IV antibiotic for coverage of potential bacterial related bronchitis.
Discharge Plan
Departure
Patient Disposition: Admit
Date of Disposition: 02/13/25
Time of Disposition: 01:45
Admit to: Med/Surg
Presentation/result/management discussed w/ accepting MD/DO: Hospitalist
Patient with high blood pressure during this ER visit?: No
Condition: Good
Discharge Problem:
COPD exacerbation, Acute hypoxemic respiratory failure
Interventions
Interventions:
*General Assessment Last Done: 02/12/25 20:56
*Neglect/Abuse Screening Last Done: 02/12/25 20:38
*ED COVID-19 Vaccine History Last Done: 02/12/25 20:56
*ED Influenza Vaccine History Last Done: 02/12/25 20:[address]
[facility] Fall Risk Assessment Tool Last Done: 02/12/25 20:56
*Risk Screen - Suicide (C-SSRS) Last Done: 02/12/25 20:38
*Nursing Disposition Last Done: 02/13/25 05:03
ED- Cardiac Assessment Last Done: 02/12/25 20:56
ED- Pulmonary Assessment Last Done: 02/12/25 20:56
Discharge Date and Time
Discharge Date/Time: 02/13/25 04:00
[2025-02-13] MEDS: DUONEB 3 ML INH ×3 (01:28→11:18)
[2025-02-13] MEDS: DECADRON 10 MG IV (01:28)
[2025-02-13] MEDS: ROCEPHIN 2000 MG IV (01:44)
[2025-02-13] MEDS: NSS 500 IV (01:44)
[2025-02-13] MEDS: VIBRAMYCIN 100 MG PO ×2 (01:44→13:39)
[2025-02-13] MEDS: TYLENOL 650 MG PO (01:45)
--- NOTE | 2025-02-13 02:00 | HPS.HSE ---
Family Physician
-
Family Physician: LORA Fong
Chief Complaint
-
Shortness of breath.
History of Present Illness
Mr. Cervantes is a 79-year-old who has past medical history significant for CAD status post four-vessel CABG in 2024, he also had left atrial appendage clip, history of COPD not on home O2, hypertension, hyperlipidemia, abdominal aortic aneurysm
measuring 2.7 cm, BPH status post TURP presenting to the emergency department via family members with cough and wheezing and some shortness of breath.
According to family members several household members had upper respiratory infections and was diagnosed with RSV over the last several days. He attempted to isolate the patient but ultimately he said that he has been having nasal congestion
headache postnasal drip and then developed a cough. He says his cough is productive of white phlegm. Reports that he does have increasing cough and paroxysms of cough over the last 24 hours. He reports mild shortness of breath. Family members
had audible wheezing.
Today the patient appeared confused and was again evaluated by multiple family members. They had audible wheezing and shortness of breath due to confusion was brought to the emergency department. He felt hot to the touch. Did not measure a
temperature at home. He has not been diagnosed with RSV so far.
In the emergency department patient was afebrile, blood pressure was 104/60 with a pulse of 83 and oxygen saturation of 96% on 2 L. His chest x-ray shows mild COPD but no acute infiltrates. ECG with normal sinus rhythm with a right bundle branch
block which is unchanged from prior. Troponin was negative, BNP was 400. His COVID test and flu test were negative. RSV is pending.
He had a white count of 19,000, hemoglobin and platelets were normal. Electrolytes BUN and creatinine were unchanged from prior.
Medical History
Past Medical History
Past Medical History: Reports Arrhythmia, CAD (Non-ST elevation PR status post CABG), COPD, HTN, Hypercholesterolemia and Other (Aneurysm of the abdominal aorta (2.7 cm),, iliac artery aneurysm)
Additional Past Medical History:
peptic ulcer disease with perforated ulcer
BPH
Past Surgical History: Reports Other
Additional Past Surgical History:
perforated ulcer repair
TURP
Social History
Tobacco: Former Smoker (6 cigarettes a day since age 11, quite after surgery this year)
Alcohol: None
Drug: None
Living: Alone
Employment: Retired
Family History
Family History: Not pertinent
Allergies / Home Medications
Allergies reflects when Allergies were last updated in [employer].
Home Medications with original date entered in [employer]
Allergy/Medication List:
Allergies
Allergy/AdvReac Type Severity Reaction Status Date / Time
influenza virus vaccine, Allergy Vomiting Verified 04/16/24 12:34
specific 1966
[Influenza Virus
Vacc,Specific]
meperidine HCl [From Demerol] Allergy agitation Verified 04/16/24 12:34
morphine AdvReac hallucinating Verified 04/16/24 12:34
and
agitation
Home Medications
ehstoahy-pyn-skuex 200 mcg-lycop 175 mcg-lutei 250 mcg-herb 178 tablet (Romel Multivitamin For Men) 1 ea PO DAILY 07/29/12
ibuprofen 200 mg tablet (Advil) 400 mg PO Q6H PRN pain 04/16/24
Review of Systems
-
History Source: Patient and Family
Constitutional: Reports No Symptoms
EENT: Reports Runny Nose
Respiratory: Reports Cough and Trouble Breathing
Cardiac: Denies Chest Pain, Diaphoresis or Palpitations
Abdomen/GI: Reports No Symptoms
: Reports No Symptoms
Musculoskeletal: Reports No Symptoms
Skin: Reports No Symptoms
Neurological: Reports No Symptoms
Endocrine: Reports No Symptoms
Hematologic/Lymphatic: Reports No Symptoms
Psych: Reports No Symptoms
Physical Exam
Vital Signs
Vital Signs
Temp Pulse Resp BP Pulse Ox
97.4 F 82 17 104/63 96
12/21/25 20:35 02/13/25 00:00 02/13/25 00:00 02/12/25 23:00 02/13/25 01:23
Physical Exam
General: Well Developed, Well Nourished, No Apparent Distress, Comfortable and Conversant
HEENT: NormoCephalic, Moist mucous membranes, Atraumatic, [place] Conjunctivae, Nose Appears Normal and Ears Appear Normal
Respiratory: Wheezes, Non Labored Respirations and Decreased Breath Sounds
Cardiac: S1/S2 and Regular Rhythm; No Murmur, Rub or Gallop
Breast: Deferred by me
GI: Soft, Non Tender, Non Distended and Normal Bowel Sounds; No Organomegaly
Rectal: Deferred by Provider
Genito-urinary: Deferred by me
Musculoskeletal: No Clubbing, No Cyanosis and No Edema
Skin: Warm and IV/Catheter Site; No Rash
Neuro: Awake, Alert, AO x 3 and Nonfocal/grossly intact
Psych: Calm and Intact Judgment/Insight
Laboratory Results
-
02/12/25 20:46
02/12/25 20:46
Laboratory Results
Total Bilirubin 0.8 mg/dl (0.2-1.3) 02/12/25 20:46
AST 49 U/L (17-59) 02/12/25 20:46
ALT 39 U/L (0-50) 02/12/25 20:46
Alkaline Phosphatase 115 U/L (38-126) 02/12/25 20:46
Troponin I < 0.012 ng/ml 02/12/25 20:46
Data Reviewed
-
Diagnostic Radiology: Image Personally Visualized and interpreted and Report Reviewed by me
Medical Tests (Nuc Med, Echo, EKG etc): Image Personally Visualized and interpreted
Lab Data: Labs Reviewed by me
Impression/Plan
-
IMPRESSION:
79 y.o. w/ h/o CAD s/p CABG 2024, former smoker with mild COPD, HTN, BPH s/p TURP presents to ED with cough, wheezing, sob. Subjective fever per family. Afebrile in ED, no focal infiltrates on Xray. Negative viral studies. No evidence of CHF.
Suspect COPD exacerbation and cannot rule out PNA with markedly elevated WBC to 19. Multiple family members with RSV. Denies any prior hospitalization for COPD
PLAN:
COPD exacerbation - Likely RSV induced but results pending, on 2L, WOB is acceptable and patient does not have conversational dyspnea. No focal infiltrates but significant new leukocytosis.
- admit to med/surg observation
- solumedrol 40mg iv q 12
- duonebs RTC and prn
- Will continue with ceftriaxone/azithromycin pending RSV
- check procalcitonin
- cough suppression, antiemetics and pain control
- peak flow measured daily
CAD
- continue aspirin/plavix
- continue metoprolol succinate 12.5mg daily
GERD
- continue ppi daily
DVT PPX - heparin sq
Code status - Full Code
[2025-02-13 05:19] LABS: Hematocrit 41.9 % (39.0-52.0); Hemoglobin 14.5 g/dL (13.0-18.0); Mean Corp Hgb Conc. 34.6 g/dL (33.0-37.0); Mean Corpuscular Volume 96.1 fL (80.0-94.0); Platelet Count 163 10^3/uL (130-400); Red Cell Dist. Width 13.4 % (11.5-14.5)
[2025-02-13 05:32] LABS: Blood Urea Nitrogen 24 mg/dl (9-20); Calcium 9.1 mg/dl (8.4-10.2); Carbon Dioxide 19 mmol/L (22-30); Chloride 107 mmol/L (98-107); Estimated Creatinine Clearance 41 ml/min; Glucose 124 mg/dl (70-99); Magnesium 1.8 mg/dl (1.6-2.3); Potassium 4.5 mmol/L (3.5-5.1); Sodium 137 mmol/L (135-145); eGFR 55.53
[2025-02-13 05:37] LABS: Procalcitonin 1.22 ng/ml (0.0-0.25)
[2025-02-13] MEDS: LOW STRENGTH ASPIRIN 81 MG PO (08:38)
[2025-02-13] MEDS: PROTONIX 40 MG PO (08:38)
[2025-02-13] MEDS: TOPROL XL 12.5 MG PO (08:38)
[2025-02-13] MEDS: HEPARIN 5000 UNITS SC (08:39)
[2025-02-13] MEDS: PLAVIX 75 MG PO (08:39)
--- NOTE | 2025-02-13 09:10 | W.PN.HOSP.TC ---
Today's Communication/Plan
-
Discharge home today
Assessment / Plan
Assessment / Plan
Impression:
79 y.o. w/ h/o CAD s/p CABG 2024, former smoker with mild COPD, HTN, BPH s/p TURP presents to ED with cough, wheezing, sob. Subjective fever per family. Afebrile in ED, no focal infiltrates on Xray. Negative viral studies. No evidence of CHF.
Suspect COPD exacerbation and cannot rule out PNA with markedly elevated WBC to 19. Multiple family members with RSV. Denies any prior hospitalization for COPD.
Next day shortness of breath improved, plan to be discharged on oral prednisone tapering, 5 days of oral antibiotic.
Will be discharged on albuterol inhaler and follow-up with pulmonology.
Assessment/plan:
Acute COPD Exacerbation
RSV-negative.
Patient on 2L O?; work of breathing acceptable; no conversational dyspnea.
No focal infiltrates noted, but significant new leukocytosis.
Solumedrol 40 mg IV every 12 hours.
Duonebs scheduled and PRN.
Continue ceftriaxone and azithromycin pending RSV results.
elevated procalcitonin.
Provide cough suppression, antiemetics, and pain control.
Measure peak flow daily.
02/13
shortness of breath improved, plan to be discharged on oral prednisone tapering, 5 days of oral antibiotic.
Will be discharged on albuterol inhaler and follow-up with pulmonology.
Leukocytosis
WBCs elevated secondary to steroid
Coronary Artery Disease (CAD)
Continue aspirin and Plavix.
Continue metoprolol succinate 12.5 mg daily.
GERD
Continue PPI daily.
DVT Prophylaxis
Heparin SQ.
Code Status
Full Code.
Diet: Regular diet
Disposition: Discharge home today
Total time spent on today's encounter was 55 minutes which included time spent in counseling the patient/family regarding diagnosis and treatment plan as listed above, goals of care, and symptom management. Case was discussed with nursing staff,
specialists, and care coordinators/case management. All labs and imaging personally reviewed by me. Remainder the time spent in detailed review of previous records, lab data, imaging, and other medical provider documentation.
Part of this note was created using voice recognition system. Occasional wrong word or �sound alike� substitutions may have inadvertently occurred due to the inherent limitations of voice recognition software. If noted kindly bring it to my
attention for correction.
Anticipated Discharge: Today
Subjective/Interval History
-
Date of Service: February 13, 2025
Patient seen and examined at bedside, denies any chest pain , shortness of breath Improved, no abdominal pain, no nausea, no vomiting, no diarrhea or constipation.
Objective Data
-
Labs:
Laboratory Results
02/12/25 02/13/25
20:46 04:59
WBC 20.0 H
Hgb 14.5
Hct 41.9
Plt Count 163
Sodium 136 137
Potassium 4.5 4.5
Chloride 104 107
Carbon Dioxide 20 L 19 L
BUN 22 H 24 H
Creatinine 1.4 H 1.3
Glucose 115 H 124 H
Calcium 9.0 9.1
Total Bilirubin 0.8
AST 49
ALT 39
Alkaline Phosphatase 115
Vital Signs:
Vital Signs
Temp Pulse Resp BP Pulse Ox
98.2 F 74 15 115/66 94
02/13/25 07:54 02/13/25 08:05 02/13/25 08:05 02/13/25 06:01 02/13/25 08:05
I&O
02/12/25 02/13/25 02/14/25
06:59 06:59 06:59
Output Total 180 / 180
Balance -180 / -180
Physical Exam
-
General: Well Developed, Well Nourished, No Apparent Distress and Comfortable
HEENT: Normocephalic, Atraumatic, Moist Mucous Membranes, No Ptosis, PERRLA and Nose Appears Normal
Respiratory: Wheezes, Rales, Rhonchi and Non Labored Respirations
Cardiac: Regular Rhythm and S1/S2
Breast: Deferred by me
GI: Soft, Nontender, Nondistended and Normal Bowel Sounds
Genito-urinary: No Costovertebral Tender
Musculoskeletal: No Clubbing, No Cyanosis and No Edema
Skin: Warm
Neuro: Awake, Alert, Oriented, AO x 3 and No Motor Deficits
Psych: Calm
Data Reviewed
-
Diagnostic Radiology: Image personally visualized and interpreted and Report Reviewed by me
CT Scan: Image personally visualized and interpreted and Report Reviewed by me
Ultrasound: Image personally visualized and interpreted and Report Reviewed by me
MRI: Image personally visualized and interpreted and Report Reviewed by me
Medical Tests (Nuc Med, Echo etc): Image personally visualized and interpreted and Report Reviewed by me
Labs: Labs Reviewed by me
Old Records: Reviewed
--- NOTE | 2025-02-13 12:47 | W.DCSUMMARY ---
Discharge Summary
Discharge Data
Date of Admission: 02/13/25
Date of Discharge: 02/13/25
Total time spent discharging patient (in min): 40
-
Pending Results: No
Hospital Course
Hospital course
79 y.o. w/ h/o CAD s/p CABG 2024, former smoker with mild COPD, HTN, BPH s/p TURP presents to ED with cough, wheezing, sob. Subjective fever per family. Afebrile in ED, no focal infiltrates on Xray. Negative viral studies. No evidence of CHF.
Suspect COPD exacerbation and cannot rule out PNA with markedly elevated WBC to 19. Multiple family members with RSV. Denies any prior hospitalization for COPD.
Next day shortness of breath improved, plan to be discharged on oral prednisone tapering, 5 days of oral antibiotic.
Will be discharged on albuterol inhaler and follow-up with pulmonology.
During hospitalization patient was treated from the following
Acute COPD Exacerbation
RSV-negative.
Patient on 2L O?; work of breathing acceptable; no conversational dyspnea.
No focal infiltrates noted, but significant new leukocytosis.
Solumedrol 40 mg IV every 12 hours.
Duonebs scheduled and PRN.
Continue ceftriaxone and azithromycin pending RSV results.
elevated procalcitonin.
Provide cough suppression, antiemetics, and pain control.
Measure peak flow daily.02/13
shortness of breath improved, plan to be discharged on oral prednisone tapering, 5 days of oral antibiotic.
Will be discharged on albuterol inhaler and follow-up with pulmonology.
Leukocytosis
WBCs elevated secondary to steroid
Coronary Artery Disease (CAD)
Continue aspirin and Plavix.
Continue metoprolol succinate 12.5 mg daily.
GERD
Continue PPI daily.
DVT Prophylaxis
Heparin SQ.
Code Status
Full Code.
Diet: Regular diet
Disposition: Discharge home today
Total time spent on today's encounter was 40 minutes which included time spent in counseling the patient/family regarding diagnosis and treatment plan as listed above, goals of care, and symptom management. Case was discussed with nursing staff,
specialists, and care coordinators/case management. All labs and imaging personally reviewed by me. Remainder the time spent in detailed review of previous records, lab data, imaging, and other medical provider documentation.
Anticipated Discharge: Today
Discharge Plan
-
Patient Disposition: Home (Routine Discharge)
Discharge Diagnosis/Procedures: Acute COPD exacerbation.
Coronary artery disease.
GERD
Diet: As tolerated and Regular
Activity: As tolerated
Referrals:
Tayo Pepper CRNP [Family Provider]
Prescriptions:
New
dextromethorphan-guaifenesin 10-100 mg/5 mL Syrup
10 ml PO Q4HPRN PRN (Reason: cough) Qty: 237 0RF
doxycycline hyclate 100 mg Capsule
100 mg PO Q12 5 Days Qty: 10 0RF
cefdinir 300 mg capsule
300 mg PO BID Qty: 10 0RF
prednisone 10 mg tablet
See Taper PO DIRECTED Qty: 30 0RF
Taper: Prednisone DC Starting at 40 mg daily
40 mg Daily for 3 Days and 0 Hour
30 mg Daily for 3 Days and 0 Hour
20 mg Daily for 3 Days and 0 Hour
10 mg Daily for 3 Days and 0 Hour
albuterol sulfate [Ventolin HFA] 90 mcg/actuation HFA aerosol inhaler
2 puff inhalation Q6H PRN (Reason: shortness of breath or wheezing) Qty: 8.5 0RF
Continued
Romel Multivitamin For Men 1 EACH tablet
1 ea PO DAILY
acetaminophen 325 mg Tablet
650 mg PO Q4HPRN PRN (Reason: mild pain,headache,temp >101F ) Qty: 0 0RF
aspirin 81 mg Tablet,Chewable
81 mg PO DAILY Qty: 0 0RF
clopidogrel 75 mg Tablet
75 mg PO DAILY Qty: 30 1RF
pantoprazole 40 mg Tablet,Delayed Release (Dr/Ec)
40 mg PO DAILY Qty: 30 1RF
tramadol 50 mg Tablet
50 mg PO Q6H PRN (Reason: back pain)
metoprolol succinate [Toprol XL] 25 mg tablet extended release 24 hr
12.5 mg PO DAILY
Discharge Orders:
Discharge Patient (As Directed); Ordered 02/13/25
Ordered By: Nela Ambrose
Care Plan Goals
Care Plan Goals:
Problem: Readiness for enhanced knowledge related to diagnosis and treatment plan
Goal: Understand your diagnosis and treatment plan needs, including medications if applicable.
Instructions: Know your diagnosis, underlying causes and treatment plan options, including medications if applicable. Consult with your health care team to learn about your diagnosis and treatment plan, including medications if applicable.
Discharge Date and Time
Print Language: DANISH
[2025-02-13] MEDS: SOLU-MEDROL PF 40 MG IV (13:39)
--- NOTE | 2025-02-13 14:15 | CM ---
spoke to pt in room, he is prev indep, lives alone in an apt with [address]. he denies any dc planning needs or dme's. plan is for dc to home when medically stable.
== END 2025-02-13 15:29 | disposition home or self-care (01) ==
LOC: IVU 02:57
PROVIDERS: Emergency Medicine; Physician Assistant; ADMITTING PHYSICIAN Internal Medicine; ATTENDING PHYSICIAN General Practice; EMERGENCY PHYSICIAN Emergency Medicine
DX: J44.1 Chronic obstructive pulmonary disease with (acute) exacerbation (principal); D72.829 Elevated white blood cell count, unspecified; T38.0X5A Adverse effect of glucocorticoids and synthetic analogues, initial encounter; I25.10 Atherosclerotic heart disease of native coronary artery without angina pectoris; I10 Essential (primary) hypertension; E78.00 Pure hypercholesterolemia, unspecified; I71.40 Abdominal aortic aneurysm, without rupture, unspecified; I45.10 Unspecified right bundle-branch block; K21.9 Gastro-esophageal reflux disease without esophagitis; Z11.52 Encounter for screening for COVID-19; Z95.1 Presence of aortocoronary bypass graft; I25.2 Old myocardial infarction; Z87.11 Personal history of peptic ulcer disease; Z87.891 Personal history of nicotine dependence; Z79.02 Long term (current) use of antithrombotics/antiplatelets; Z79.82 Long term (current) use of aspirin
CPT/HCPCS: 71046; 80048; 80053; 83605; 83735; 83880; 84145; 84484; 85025; 85027; 87502; 87807; 87811; 93005; 94640; 96374; 96375; 99285; G0378